=== PATIENT | female | born 1945 ===

== ENCOUNTER 2021-05-23 13:44 | Emergency (ER) | payer MEDICARE, SELFPAY ==
--- NOTE | ~2021-05-23 | CT_ITS ---
EXAMINATION: CT ABDOMEN AND PELVIS WITHOUT CONTRAST CLINICAL INFORMATION: Left groin pain. Rule out hernia/compression fracture. COMPARISON: No priors. TECHNIQUE: Multidetector volumetric imaging was performed from the superior aspect of the liver through the pubic symphysis. Sagittal and coronal reformatted images were obtained on the technologist's workstation. This CT examination was performed using dose optimization techniques as appropriate, variously including the following: *Automated exposure control *Adjustment of mA and/or kV according to patient size (this includes techniques or standardized protocols for targeted exams where dose is matched to indication/reason for exam; i.e. extremities or head) *Use of iterative reconstruction technique DLP: 517 mGy-cm FINDINGS: LINES AND TUBES: None. LOWER THORAX: Lung bases are clear. Heart is normal in size. No pericardial effusion or thickening. HEPATOBILIARY: The liver is normal in size, contour, and attenuation. No focal hepatic lesions. Gallbladder is surgically absent. No intrahepatic or extra hepatic biliary ductal dilation. SPLEEN: Normal. PANCREAS: Normal. Main pancreatic duct is normal in caliber. No solid or cystic pancreatic lesion. ADRENALS: Normal. KIDNEYS/URETERS: Normal. No renal calculi. No hydronephrosis. Ureters are normal throughout their course. BLADDER: Normal. PELVIC ORGANS: Anteverted uterus. No adnexal mass. GI TRACT: Stomach is normal in caliber. No dilated or thick walled loops of bowel. The appendix is normal (6:43). PERITONEUM/RETROPERITONEUM AND MESENTERY: No free air or fluid. LYMPH NODES: No pathologically enlarged lymph nodes. VESSELS: There is moderate aortoiliac atherosclerotic calcification. No aortic aneurysm by size criteria. BONES AND SOFT TISSUES: No aggressive osseous lesions. There is subtle compression of the T11 superior endplate of indeterminate age. No unstable fracture. Mild osteopenia. CT/CT abdomen pelvis wo con IMPRESSION: --No acute process in the abdomen/pelvis. --Subtle compression of the T11 superior endplate. --Mild osteopenia. --No evidence of hernia. --Normal appendix.
[2021-05-23 13:58] VITALS: BP 171/111; PULSE 82; RESP 20; TEMP 35.6; O2SAT 95; BMI 26.2
--- NOTE | 2021-05-23 14:47 | ED.BACK ---
HPI - Back Pain/Injury General Chief Complaint: Back Pain/Injury Stated Complaint: INJ BACK LIFTING Time Seen by Provider: 05/23/21 14:47 History of Present Illness HPI Narrative: Patient complains of left-sided back pain as well as left groin pain after lifting a heavy air conditioner 3 days ago, there is no numbness weakness or tingling no radiation of pain no nausea vomiting no abdominal pain no changes to bowel or bladder, eating normally Related Data Previous Rx's Medication Instructions Recorded acetaminophen 500 mg tablet 1,000 mg PO QID PRN #30 tab 05/23/21 cyclobenzaprine 5 mg tablet 5 mg PO TID PRN #14 tab 05/23/21 lidocaine 5 % topical patch 1 patch TOPICAL DAILY PRN #15 ea 05/23/21 naproxen 500 mg tablet (Naprosyn) 500 mg PO BID PRN #10 tab 05/23/21 Allergies Allergy/AdvReac Type Severity Reaction Status Date / Time No Known Allergies Allergy Mild NONE Unverified 07/17/20 15:25 Review of Systems Review of Systems: Positive for left-sided back pain and left groin pain Negatives are no fever no chills no dizziness no weakness no headache no neck pain no chest pain no abdominal pain no nausea vomiting or diarrhea no dysuria no frequency no changes to bowel or bladder, appetite is normal, no rashes no numbness weakness or tingling PMFSH Past Medical History Source: nursing notes reviewed Medical History (Updated 05/24/21 @ 00:01 by Background Daemon) Asthma Hypertension Osteoporosis Social History Social History Advance Directives: Yes Advance Directives Information Provided: Yes Advance Directives on File: No Physical Exam Vital Signs: Vital Signs: Last Vital Signs Temp 96.1 F L 05/23/21 13:58 Pulse 82 05/23/21 13:58 Resp 20 05/23/21 13:58 BP 171/111 H 05/23/21 13:58 Pulse Ox 95 05/23/21 13:58 Body Mass Index 26.2 General appearance no acute distress Head is normocephalic atraumatic Neck is suppl Chest is clear to auscultation bilateral Heart no murmur The abdomen soft nontender The left groin area there seemed to be a small bulge that was easily reduced possibly a hernia, there was no tenderness no rebound no guarding The back had left lower lumbar tenderness there was no focal spinal tenderness there was no CVA tenderness the skin was normal, pain was reproduced with movement Skin no rashes Extremities full range of motion x4 Neuro no focal motor sensory deficit Course Course Course Narrative: CT scan was done and showed a possible small compression fracture but not clear if was new or old Physical exam showed a possible small reducible inguinal hernia, patient ambulates easily and is well-appearing and is discharged to follow with primary care doctor and advised to follow with surgeon for evaluation of the left inguinal area Discharge Plan Discharge Clinical Impression: Back pain Patient Disposition: Home, Self-Care Additional Instructions: When I examined the painful area in the left groin I thought I felt a small hernia that was easy to reduce, if this pain continues you should follow with a surgeon for further evaluation Our CT scan showed a possible small compression fracture of 1 of the vertebrae which may be old or possibly new from the lifting injury This should be followed with primary care doctor and probable referral for physical therapy Return any time for any worse condition or any concerns, especially vomiting, worsening abdominal pain, fever, trouble with urinating, weakness, any worse condition or any concerns Prescriptions: New lidocaine 5 % adhesive patch,medicated 1 patch topical DAILY PRN (Reason: Back pain) Qty: 15 RF: 0 naproxen [Naprosyn] 500 mg tablet 500 mg PO BID PRN (Reason: pain) Qty: 10 RF: 0 acetaminophen 500 mg tablet 1,000 mg PO QID PRN (Reason: pain) Qty: 30 RF: 0 cyclobenzaprine 5 mg tablet 5 mg PO TID PRN (Reason: muscle spasm) Qty: 14 RF: 0 Referrals: Zhang Guzman MD [Physician] - 5 days (Possible reducible left inguinal hernia) Interventions: ED Discharge Assessment Last Done: 05/23/21 16:12 Discharge Date/Time: 05/23/21 16:13
[2021-05-23] MEDS: Lidocaine 4 % Patch ADH..PATCH 1 PATCH TRANSDERMA (16:05)
[2021-05-23] MEDS: Acetaminophen 325 MG TABLET 975 MG PO (16:06)
[2021-05-23] MEDS: NaPROXEN 500 MG TABLET PO (16:07)
[2021-05-23] MEDS: Cyclobenzaprine HCl 5 MG TABLET PO (16:11)
== END 2021-05-23 16:13 | disposition home or self-care (01) ==
PROVIDERS: Emergency Provider Emergency Medicine; PCP Internal Medicine
DX: M54.5 Low back pain (principal); I10 Essential (primary) hypertension
CPT/HCPCS: 74176; 99283; 99284

== ENCOUNTER 2022-02-03 08:27 | Outpatient (REF) | payer OTHER, SELFPAY ==
--- NOTE | ~2022-02-03 | MM_ITS ---
EXAMINATION: MM SCREENING DIGITAL BREAST TOMOSYNTHESIS, BILATERAL CLINICAL INFORMATION: Screening. Asymptomatic. The lifetime risk of breast cancer based on the Tyrer-Cuzick Model is 2%. COMPARISON: Mammography: 06/13/2019, 05/29/2018, 11/25/2016 TECHNIQUE: Digital breast tomosynthesis is performed in both the craniocaudal and mediolateral oblique views along with computer-aided detection (CAD). Synthesized 2D images are generated from the tomosynthesis. FINDINGS: There are scattered areas of fibroglandular density (ACR BI-RADS breast composition Category b). There are no significant masses, abnormal calcifications, or other abnormalities. Breast tissue composition borders on predominantly fatty. There is a small stable macrolobulated nodule central 9:00 right breast. The axilla are unremarkable. No significant changes. MM/MM tomosynthesis screening BI IMPRESSION: No mammographic evidence of malignancy. ASSESSMENT: BI-RADS 2: Benign RECOMMENDATION: Routine annual mammography screening. This patient's information was entered into a reminder system with a target due date for their next mammogram.
== END 2022-02-03 08:28 | disposition home or self-care (01) ==
LOC: HO.MAMMO 08:27
PROVIDERS: PCP Internal Medicine; Visit Provider Internal Medicine
DX: Z12.31 Encounter for screening mammogram for malignant neoplasm of breast (principal)
CPT/HCPCS: 77063; 77067

== ENCOUNTER → 2022-04-12 10:20 | Outpatient (BNVA) | payer OTHER, SELFPAY | PROVIDERS: PCP Internal Medicine; Visit Provider Nurse Practitioner Family | DX: Z12.11 Encounter for screening for malignant neoplasm of colon (principal); K59.04 Chronic idiopathic constipation; K22.70 Barrett's esophagus without dysplasia | CPT/HCPCS: 99202 ==

== ENCOUNTER 2022-05-05 09:41 | Emergency (ER) | payer OTHER, SELFPAY ==
--- NOTE | ~2022-05-05 | CT_ITS ---
EXAMINATION: CT ABDOMEN AND PELVIS WITHOUT CONTRAST CLINICAL INFORMATION: Left upper quadrant pain. Left flank pain. COMPARISON: 05/23/2021 TECHNIQUE: Multidetector volumetric imaging was performed from the superior aspect of the liver through the pubic symphysis. Sagittal and coronal reformatted images were obtained on the technologist's workstation. This CT examination was performed using dose optimization techniques as appropriate, variously including the following: *Automated exposure control *Adjustment of mA and/or kV according to patient size (this includes techniques or standardized protocols for targeted exams where dose is matched to indication/reason for exam; i.e. extremities or head) *Use of iterative reconstruction technique DLP: 432 mGy-cm FINDINGS: LUNG BASES: The visualized lung bases are unremarkable. LIVER, GALLBLADDER, AND BILIARY TREE: The liver is normal in size, shape, and attenuation. No focal hepatic lesion or biliary ductal dilatation is present. The gallbladder is unremarkable with no evidence of radiopaque gallstones, gallbladder wall thickening, or obvious pericholecystic inflammatory changes. PANCREAS: Unremarkable. SPLEEN: Unremarkable. ADRENAL GLANDS: Unremarkable. KIDNEYS AND URETERS: Since the prior exam, the right and left renal pelves do appear slightly more prominent. No evidence for right or left nephrolithiasis or perinephric collection. No evidence for discrete calcifications along the course of the ureters although there are multiple pelvic phleboliths and vascular calcifications along the course of the ureters. If there is continued concern for passage of the left renal stone and I would recommend repeating the study with IV contrast with delayed imaging through the left renal pelvis. Incidental note is made of a retroaortic left renal vein. BLADDER: Unremarkable. GASTROINTESTINAL TRACT: There is a large volume of stool distending the rectum. There is a large volume of stool throughout the colon but no bowel obstruction or right or left lower quadrant inflammatory change. The appendix is normal. ABDOMINAL WALL: No significant hernia is appreciated. LYMPH NODES: Normal. VASCULAR: There is atherosclerotic change in the aorta. 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 The AP diameter of the mid abdominal aorta measures up to 27 mm. There are no periaortic collections. Please note that the study however was done without IV contrast. PELVIC VISCERA: Unremarkable. OSSEOUS STRUCTURES: There is degenerative change noted. There is a mild compression deformity in the lower thoracic spine unchanged. CT/CT abdomen pelvis wo con IMPRESSION: Slight prominence or distention of the right and left collecting system. If symptoms continue I would recommend follow-up examination with IV contrast. Fleischner guidelines were followed.
--- NOTE | ~2022-05-05 | XR_ITS ---
EXAMINATION: XR CHEST CLINICAL INFORMATION: Left upper quadrant pain. COMPARISON: 06/03/2013 chest radiograph. TECHNIQUE: 2 views of the chest were obtained. FINDINGS: No significant abnormality is noted involving the heart, lungs, mediastinum, bony thorax or soft tissues. XR/XR chest 2V IMPRESSION: No acute cardiopulmonary process.
[2022-05-05 09:53] VITALS: BP 182/91; PULSE 74; O2SAT 99
[2022-05-05 09:54] VITALS: BP 125/65; PULSE 64; RESP 12; TEMP 36.4; O2SAT 97
[2022-05-05 09:57] VITALS: BP 125/65; PULSE 64; RESP 18; TEMP 36.4; O2SAT 98; BMI 24.4
--- NOTE | 2022-05-05 10:09 | ECG_ITS ---
Test Reason : chest wall pain Blood Pressure : / mmHG Vent. Rate : 062 BPM Atrial Rate : 062 BPM P-R Int : 144 ms QRS Dur : 072 ms QT Int : 394 ms P-R-T Axes : 070 040 031 degrees QTc Int : 399 ms Normal sinus rhythm Normal ECG When compared with ECG of 03-JUN-2013 14:56, No significant change was found Referred By: Chelsie Amador Electronically Signed By:Gianluca Muaro
[2022-05-05] MEDS: ondansetron HCL 4 MG/2 ML VIAL IVPUSH (10:43)
[2022-05-05] MEDS: 0.9 % Sodium Chloride 1,000 ML 999 ML IVCONT (10:43)
[2022-05-05] MEDS: Ketorolac Tromethamine 30 MG/ML VIAL IVPUSH (10:43)
[2022-05-05 10:55] LABS: MANUAL DIFF FLAG NO
--- NOTE | 2022-05-05 10:59 | PC.NURSE ---
Patient arrives via EMS from [facility] walk-in clinic. Reports left flank pain x 1 week. Patient is alert and oriented. Respirations regular and even. Skin PWD. Placed IV and roberto labs. Hung NS 1L and medicated with zofran and ptoradol. Awaiting lab results at this time. Will continue to monitor.
[2022-05-05 11:04] LABS: Basophils Percent Auto 0.4 % (0-2); Eosinophils Absolute Auto 0.1 X10*3/uL (0.0-0.4); Eosinophils Percent Auto 0.8 % (0-4); Hematocrit 45.6 % (37.0-47.0); Hemoglobin 14.7 g/dl (12.0-16.0); Imm Gran Abs Auto 0.01 X10*3/uL (0.00-0.03); Imm Gran Pct Auto 0.1 % (0.0-0.4); Lymphocytes Absolute Auto 3.2 X10*3/uL (1.2-4.9); Lymphocytes Percent Auto 41.3 % (20-40); Mean Corpuscular HGB Conc 32.2 g/dl (31.0-35.0); Mean Corpuscular Hemoglobin 27.5 pg (27.0-33.0); Mean Corpuscular Volume 85.4 fL (80.0-98.0); Mean Platelet Volume 9.8 fL (9.4-12.3); Monocytes Absolute Auto 0.6 X10*3/uL (0.1-1.2); Monocytes Percent Auto 7.8 % (2-11); Neutrophils Absolute Auto 3.8 x10*3/uL (2.0-8.3); Neutrophils Percent Auto 49.6 % (45-73); Platelet Count 222 X10*3/uL (160-400); Red Blood Count 5.34 X10*6/uL (4.20-5.50); Red Cell Distribution Width 13.5 % (11.0-16.0); White Blood Count 7.7 X10*3/uL (4.8-10.8)
[2022-05-05 11:19] LABS: Ethanol < 10 mg/dL
[2022-05-05 11:21] LABS: Alanine Aminotransferase 14 U/L (0-31); Albumin Level 4.2 g/dL (3.5-5.0); Alkaline Phosphatase 64 U/L (39-117); Anion Gap 11 (12-20); Aspartate Amino Transferase 19 U/L (5-31); Bilirubin Total 0.7 mg/dL (0.0-1.0); Blood Urea Nitrogen 12 mg/dL (9-16); Calcium 9.4 mg/dL (8.4-10.2); Carbon Dioxide 28 mmol/L (22-29); Chloride 104 mmol/L (96-108); Creatinine Clr Calc Pharmacy 39.7; Estimated Glomerular Filt Rate 55; Glucose Random 97 mg/dL (60-115); Lactate Dehydrogenase 161 U/L (122-220); Lipase 32 U/L (8-78); Magnesium 2.1 mg/dL (1.6-2.6); Potassium 4.3 mmol/L (3.3-5.1); Sodium 139 mmol/L (135-145)
[2022-05-05 11:22] LABS: Troponin-I High Sensitivity < 3.5 ng/L (<3.5-17.0)
--- NOTE | 2022-05-05 11:38 | ED_ITS ---
HPI - Abdominal Pain General Chief Complaint: Abdominal Pain Stated Complaint: LEFT FLANK PAIN Time Seen by Provider: 05/05/22 09:53 Source: patient Mode of arrival: ambulatory Limitations: language barrier (Romanian-speaking) History of Present Illness HPI narrative: 76-year-old female with a past medical history of Panda's esophagus recently had a colonoscopy which showed tubular adenoma without high-grade dysplasia or carcinoma being followed by Gastroenterology last seen on 04/12/2022, asthma, hypertension and osteoporosis presenting to the ED with complaints of left upper quadrant/left flank/left lower rib cage/chest wall pain that radiates to her left back for approximately 1 week. She reports that today it is worse. She reports that she has been taking Motrin/Tylenol/Advil/Aleve and no symptomatic relief. She has also been trying hot and cold packs which provide no symptomatic relief. She denies any dizziness, headaches, neck pain/stiffness, trouble swallowing or breathing, chest pain or shortness of breath, dyspnea on exertion, orthopnea, palpitations, paresthesias, dysuria, hematuria, abnormal vaginal discharge, black or bloody stools, vomiting, recent travel or sick contacts, recent antibiotic usage, bad food exposure, others with similar symptoms or any other symptoms complaints or concerns at this time. MD elicited complaint: abdominal pain Pertinent past history: other (Barrettes esophagus with tubular adenoma) Onset (ago): week(s) (1) Pain Consistency: constant Location: epigastric, LUQ and L flank Severity: moderate Quality: aching and sharp Radiation: L flank and back Exacerbating factors: nothing Relieving factors: nothing Associated symptoms: nausea Related Data Previous Rx's Medication Instructions Recorded acetaminophen 500 mg tablet 1,000 mg PO QID PRN pain #30 tabs 05/23/21 cyclobenzaprine 5 mg tablet 5 mg PO TID PRN muscle spasm #14 05/23/21 tabs lidocaine 5 % topical patch 1 patch topical DAILY PRN Back 05/23/21 pain #15 ea naproxen 500 mg tablet (Naprosyn) 500 mg PO BID PRN pain #10 tabs 05/23/21 bisacodyl 5 mg tablet,delayed 10 mg PO ONCE 1 day #2 tabs 04/12/22 release (Dulcolax (bisacodyl)) polyethylene glycol 3350 17 238 g PO ONCE #238 grams 04/12/22 gram/dose oral powder (Miralax) sennosides 8.6 mg tablet (Natural 8.6 mg PO BEDTIME constipation #90 04/12/22 Senna Laxative) tabs docusate sodium 100 mg capsule 100 mg PO BID PRN Constipation #14 05/05/22 (Colace) caps ketorolac 10 mg tablet 10 mg PO Q8H PRN pain #14 tabs 05/05/22 peg 3350-electrolytes 236 240 ml PO Q10M Constipation #4,000 05/05/22 gram-22.74 gram-6.74 gram-5.86 mL gram solution (Golytely) polyethylene glycol 3350 17 17 g PO BID Constipation #238 grams 05/05/22 gram/dose oral powder (Miralax) Allergies Allergy/AdvReac Type Severity Reaction Status Date / Time No Known Allergies Allergy Mild NONE Verified 04/12/22 10:24 Review of Systems Review of Systems Constitutional : No Fever, No Chills, No Night Sweats, No Fatigue, No Malaise Cardiovascular : No Chest Pain, No SOB Respiratory : No Cough, No Sputum, No Wheezing, No Dyspnea Gastrointestinal : + Nausea, No Vomiting, No Diarrhea, + abdominal Pain, No Hematochezia, No Melena Genitourinary : No irregular bleeding, No Dysuria, No Urinary Frequency, No Hematuria,No Urinary Incontinence, No Urgency, No Flank Pain Musculoskeletal : No joint pain, No Myalgias, No Joint Swelling Skin : No Skin Lesions, No rash Neuro : No Weakness, No Numbness, No Paresthesias, No Loss of Consciousness, No Dizziness, No Headache Heme/Lymph: No Lymphadenopathy Endocrine : No Temperature Intolerance Yes all other systems are reviewed and are negative [facility] Past Medical History Attestation statement: The following information was validated with the patient. Source: old records reviewed and nursing notes reviewed Medical History Asthma Panda esophagus Hypertension Osteoporosis Family History Family History Mother Diabetes Father No problems noted. Social History Social History Alcohol intake: never Patient Tobacco Use Status: Current everyday Tobacco user Tobacco use type: Cigarette Cigarettes Per Day: 3 Use of substances other than those prescribed or required for medical reasons: No Advance Directives: No Advance Directives Information Provided: Yes Physical Exam ED Vital Signs: Vital Signs - 24 hr 05/05/22 09:54 05/05/22 09:57 Temperature 97.6 F 97.6 F Pulse Rate 64 64 Respiratory Rate 12 18 Blood Pressure 125/65 125/65 Pulse Oximetry 97 98 Oxygen Delivery Method Room Air Room Air BMI result Body Mass Index 24.4 Vital signs have been reviewed and all within normal limits Appearance: Alert. Oriented X3. No acute distress. Head: Normal external exam. Normocephalic. Eyes: PERRLA. EOMI. Conjunctiva and sclera normal. Eyelids normal. ENT: Pharynx normal. Uvula midline. Moist mucous membranes. No trismus noted. No drooling noted. No muffled voice noted. Neck: Normal inspection. Neck supple. FROM. No adenopathy. No meningeal signs. CVS: Normal heart rate and rhythm. Heart sound normal. No murmurs noted. Pulses normal throughout. Respiratory: No respiratory distress. Painless inspiration. Breath sounds normal. No wheezes/rales/rhonchi noted. Chest nontender. No accessory muscle usage noted or decreased air movement noted. Abdomen: Soft and moderate tenderness palpation to the left upper quadrant/epigastric area with guarding patient is holding her hand right over her left lower ribcage/left upper quadrant/left flank/epigastric area. Negative Valentin sign. Nondistended. No rigidity. Bowel sounds normal in all 4 quadrants. No distention noted. No organomegaly noted. No visible injury noted. No rebound tenderness. Negative Rovsing sign. Negative obturator's sign. Negative psoas sign. Negative Valentin sign. Back: No CVA tenderness. Full range of motion noted. Skin: Skin warm and dry. Normal skin color. Normal skin turgor. No rashes/lesions/lacerations noted. Extremities: Extremities exhibit normal range of motion. Extremities nontender. Neuro: Oriented X 3. No motor deficit. No sensory deficit. Reflexes normal. Normal steady gait. CN's II-XII intact bilaterally? Course Course Course Narrative: 10:10am - 76-year-old female with a past medical history of Panda's esophagus recently had a colonoscopy which showed tubular adenoma without high-grade dysplasia or carcinoma being followed by Gastroenterology last seen on 04/12/2022, asthma, h ypertension and osteoporosis presenting to the ED with complaints of left upper quadrant/left flank/left lower rib cage/chest wall pain that radiates to her left back for approximately 1 week. She reports that today it is worse. She reports that she has been taking Motrin/Tylenol/Advil/Aleve and no symptomatic relief. She has also been trying hot and cold packs which provide no symptomatic relief. . Plan: Labs, UA, COVID swab, chest x-ray, EKG, CT scan abdomen pelvis I did want IV contrast although due to the IV national shortage of contrast the radiologist recommended performing the CT scan of abdomen pelvis without IV contrast and if there are abnormalities then he would recommend IV contrast although not at this time. Patient declined morphine or Dilaudid therefore I offered Toradol patient accepted will also give Zofran and re-evaluate. Reevaluation(s) Reevaluation #1: - labs reviewed and all labs within normal limits. - chest x-ray within normal limits no acute processes noted. - UA pending and CT scan abdomen pelvis with out IV contrast will re-evaluate Time: 12:02 Reevaluation #2: - CT scan abdomen pelvis with IV contrast revealed some prominence/distension of the right and left collecting system otherwise they did not see any stones and patient reports she feels much comfortable after the Toradol and she is able to eat and drink. We did notice that she did have large amount of stool therefore most likely consistent with constipation. Not consistent with bowel obstruction at this time. I did offer the patient to do a rectal exam to remove some of the stool that she has although she adamantly refused reported that she is currently on medication she just needs to take them as prescribed I also explained to her that I can give her more medications Colace/MiraLax and GoLYTELY with instructions follow-up with her GI Dr. And to return if any new or worsening symptoms. Patient understands agrees with this plan. Time: 13:07 [facility] - Abdominal Pain Medical Records Attestation: I reviewed the patient's medical records. Lab Data Attestation: I reviewed the patient's lab results. Result diagrams: 05/05/22 10:41 05/05/22 10:41 Labs: Lab Results 05/05/22 05/05/22 05/05/22 Range/Units 10:41 10:41 10:41 WBC 7.7 (4.8-10.8) X10*3/uL RBC 5.34 (4.20-5.50) X10*6/uL Hgb 14.7 (12.0-16.0) g/dl Hct 45.6 (37.0-47.0) % MCV 85.4 (80.0-98.0) fL MCH 27.5 (27.0-33.0) pg MCHC 32.2 (31.0-35.0) g/dl RDW 13.5 (11.0-16.0) % Plt Count 222 (160-400) X10*3/uL MPV 9.8 (9.4-12.3) fL Immature Gran % (Auto) 0.1 (0.0-0.4) % Neut % (Auto) 49.6 (45-73) % Lymph % (Auto) 41.3 H (20-40) % [place] % (Auto) 7.8 (2-11) % Eos % (Auto) 0.8 (0-4) % Baso % (Auto) 0.4 (0-2) % Lymph # (Auto) 3.2 (1.2-4.9) X10*3/uL [place] # (Auto) 0.6 (0.1-1.2) X10*3/uL Eos # (Auto) 0.1 (0.0-0.4) X10*3/uL Baso # (Auto) 0.0 (0.0-0.2) X10*3/uL Abs Immat Gran (auto) 0.01 (0.00-0.03) X10*3/uL Absolute Neuts (auto) 3.8 (2.0-8.3) x10*3/uL Absolute Nucleated RBC 0.000 (0.0-0.012) X10*3/uL Nucleated RBC % (auto) 0.0 (0.0-0.2) /100WBC PT (10.0-13.1) SEC INR (0.9-1.1) Sodium 139 (135-145) mmol/L Potassium 4.3 (3.3-5.1) mmol/L Chloride 104 (96-108) mmol/L Carbon Dioxide 28 (22-29) mmol/L Anion Gap 11 L (12-20) BUN 12 (9-16) mg/dL Creatinine 0.98 (0.5-1.4) mg/dL Estim Creat Clear Calc 39.7 Estimated GFR 55 Random Glucose 97 (60-115) mg/dL Calcium 9.4 (8.4-10.2) mg/dL Magnesium 2.1 (1.6-2.6) mg/dL Total Bilirubin 0.7 (0.0-1.0) mg/dL AST 19 (5-31) U/L ALT 14 (0-31) U/L Alkaline Phosphatase 64 (39-117) U/L Lactate Dehydrogenase 161 (122-220) U/L Troponin I High Sens < 3.5 (<3.5-17.0) ng/L Total Protein 7.0 (6.5-8.0) g/dL Albumin 4.2 (3.5-5.0) g/dL Lipase 32 (8-78) U/L Ethyl Alcohol mg/dL COVID-19 (ERIC) (Negative) COVID-19 Clin Com 05/05/22 05/05/22 05/05/22 Range/Units 10:41 11:34 12:36 WBC (4.8-10.8) X10*3/uL RBC (4.20-5.50) X10*6/uL Hgb (12.0-16.0) g/dl Hct (37.0-47.0) % MCV (80.0-98.0) fL MCH (27.0-33.0) pg MCHC (31.0-35.0) g/dl RDW (11.0-16.0) % Plt Count (160-400) X10*3/uL MPV (9.4-12.3) fL Immature Gran % (Auto) (0.0-0.4) % Neut % (Auto) (45-73) % Lymph % (Auto) (20-40) % [place] % (Auto) (2-11) % Eos % (Auto) (0-4) % Baso % (Auto) (0-2) % Lymph # (Auto) (1.2-4.9) X10*3/uL [place] # (Auto) (0.1-1.2) X10*3/uL Eos # (Auto) (0.0-0.4) X10*3/uL Baso # (Auto) (0.0-0.2) X10*3/uL Abs Immat Gran (auto) (0.00-0.03) X10*3/uL Absolute Neuts (auto) (2.0-8.3) x10*3/uL Absolute Nucleated RBC (0.0-0.012) X10*3/uL Nucleated RBC % (auto) (0.0-0.2) /100WBC PT 11.9 (10.0-13.1) SEC INR 1.0 (0.9-1.1) Sodium (135-145) mmol/L Potassium (3.3-5.1) mmol/L Chloride (96-108) mmol/L Carbon Dioxide (22-29) mmol/L Anion Gap (12-20) BUN (9-16) mg/dL Creatinine (0.5-1.4) mg/dL Estim Creat Clear Calc Estimated GFR Random Glucose (60-115) mg/dL Calcium (8.4-10.2) mg/dL Magnesium (1.6-2.6) mg/dL Total Bilirubin (0.0-1.0) mg/dL AST (5-31) U/L ALT (0-31) U/L Alkaline Phosphatase (39-117) U/L Lactate Dehydrogenase (122-220) U/L Troponin I High Sens (<3.5-17.0) ng/L Total Protein (6.5-8.0) g/dL Albumin (3.5-5.0) g/dL Lipase (8-78) U/L Ethyl Alcohol < 10 mg/dL COVID-19 (ERIC) Negative (Negative) COVID-19 Clin Com See Note Imaging Data Chest x-ray: Attestation: I personally reviewed and interpreted this imaging study as follows: Radiologist's impression: FINDINGS: No significant abnormality is noted involving the heart, lungs, mediastinum, bony thorax or soft tissues. XR/XR chest 2V IMPRESSION: No acute cardiopulmonary process. CT scan abdomen pelvis without IV contrast: Attestation: I personally reviewed and interpreted this imaging study as follows: Radiologist's impression: FINDINGS: LUNG BASES: The visualized lung bases are unremarkable.? LIVER, GALLBLADDER, AND BILIARY TREE: The liver is normal in size, shape, and attenuation. No focal hepatic lesion or biliary ductal dilatation is present. The gallbladder is unremarkable with no evidence of radiopaque gallstones, gallbladder wall thickening, or obvious pericholecystic inflammatory changes.? PANCREAS: Unremarkable.? SPLEEN: Unremarkable.? ADRENAL GLANDS: Unremarkable.? KIDNEYS AND URETERS: Since the prior exam, the right and left renal pelves do appear slightly more prominent. No evidence for right or left nephrolithiasis or perinephric collection. No evidence for discrete calcifications along the course of the ureters although there are multiple pelvic phleboliths and vascular calcifications along the course of the ureters. If there is continued concern for passage of the left renal stone and I would recommend repeating the study with IV contrast with delayed imaging through the left renal pelvis. Incidental note is made of a retroaortic left renal vein. BLADDER: Unremarkable.? GASTROINTESTINAL TRACT: There is a large volume of stool distending the rectum. There is a large volume of stool throughout the colon but no bowel obstruction or right or left lower quadrant inflammatory change. The appendix is normal.? ABDOMINAL WALL: No significant hernia is appreciated.? LYMPH NODES: Normal. VASCULAR: There is atherosclerotic change in the aorta. 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 The AP diameter of the mid abdominal aorta measures up to 27 mm. There are no periaortic collections. Please note that the study however was done without IV contrast. PELVIC VISCERA: Unremarkable.? OSSEOUS STRUCTURES: There is degenerative change noted. There is a mild compression deformity in the lower thoracic spine unchanged.? CT/CT abdomen pelvis wo con IMPRESSION: Slight prominence or distention of the right and left collecting system. If symptoms continue I would recommend follow-up examination with IV contrast. Fleischner guidelines were followed. ECG Data Attestation: I personally reviewed and interpreted this ECG as follows: ECG interpretation date: 05/05/22 ECG interpretation time: 10:39 Interpretation: EKG normal sinus rhythm with ventricular rate of 62 with a normal AR interval normal QRS duration normal QTC interval. No acute ischemic change are noted. Similar compared to prior EKG May 2013 Critical Care Time Critical Care Time Critical Care Time: Yes Total Critical Care Time: 60 Attestation: I personally attest to this time spent taking care of the patient Discharge Plan Discharge Clinical Impression: Constipation Patient Disposition: Home, Self-Care Instructions: Constipation (ED) Prescriptions: New peg 3350-electrolytes [Golytely] 236-22.74-6.74 -5.86 gram recon soln 240 ml PO Q10M Qty: 4000 0RF Rx Instructions: until fecal effluent is clear docusate sodium [Colace] 100 mg capsule 100 mg PO BID PRN (Reason: Constipation) Qty: 14 0RF polyethylene glycol 3350 [Miralax] 17 gram/dose powder 17 g PO BID Qty: 238 0RF ketorolac 10 mg tablet 10 mg PO Q8H PRN (Reason: pain) Qty: 14 0RF No Action lidocaine 5 % adhesive patch,medicated 1 patch topical DAILY PRN (Reason: Back pain) Qty: 15 0RF Rx Instructions: leave on most painful area for up to 12 hrs naproxen [Naprosyn] 500 mg tablet 500 mg PO BID PRN (Reason: pain) Qty: 10 0RF acetaminophen 500 mg tablet 1,000 mg PO QID PRN (Reason: pain) Qty: 30 0RF cyclobenzaprine 5 mg tablet 5 mg PO TID PRN (Reason: muscle spasm) Qty: 14 0RF Rx Instructions: This medication may cause drowsiness, use with caution bisacodyl [Dulcolax (bisacodyl)] 5 mg tablet,delayed release (DR/EC) 10 mg PO ONCE 1 Days Qty: 2 0RF Rx Instructions: take 2 tabs at noon the day before your colonoscopy polyethylene glycol 3350 [Miralax] 17 gram/dose powder 238 g PO ONCE Qty: 238 0RF Rx Instructions: As directed by gastroenterology department at [facility] sennosides [Natural Senna Laxative] 8.6 mg tablet 8.6 mg PO BEDTIME Qty: 90 3RF Referrals: Bre Ortega MD [Primary Care Provider] - Carlie Brito, LEARNING DEVELOPMENT SPECIALIST-BC [Nurse Practitioner] - 1 week Print Language: Romanian
[2022-05-05 11:44] LABS: Prothrombin Time 11.9 SEC (10.0-13.1)
[2022-05-05 12:00] VITALS: BP 138/80; PULSE 68; RESP 18; O2SAT 96
[2022-05-05 13:01] LABS: COVID-19 Test Negative (Negative); IDNOW Serial# 16C4AD1C
== END 2022-05-05 13:41 | disposition home or self-care (01) ==
PROVIDERS: Physician Assistant Medical; Emergency Provider Internal Medicine; PCP Internal Medicine
DX: K59.00 Constipation, unspecified (principal); Z20.822 Contact with and (suspected) exposure to COVID-19; R10.12 Left upper quadrant pain; I10 Essential (primary) hypertension; K22.70 Barrett's esophagus without dysplasia; F17.200 Nicotine dependence, unspecified, uncomplicated
CPT/HCPCS: 36415; 71046; 74176; 80053; 82077; 83615; 83690; 83735; 84484; 85025; 85610; 87635; 93005; 96361; 96374; 96375; 99284; J1885; J2405

== ENCOUNTER 2022-08-12 09:30 | Day surgery (SDC) | payer OTHER, SELFPAY ==
--- NOTE | 2022-08-11 10:26 | HO.ANESPROP2 ---
Documented by User: Tiffanie Sarmiento NP 08/11/22 10:28 HPI - Anesthesia Eval Consult details Narrative: 76yo F for Upper Endoscopy and Colonoscopy PMFSH Active Problems Active Problems: All Active Problems (Updated 05/06/22 @ 00:05 by Uvaldo Benites) Panda esophagus (Acute) Past Medical History Medical History Asthma Panda esophagus Hypertension Osteoporosis Family History Family History Mother Diabetes Father No problems noted. Social History Social History Alcohol intake: never Patient Tobacco Use Status: Current everyday Tobacco user Tobacco use type: Cigarette Cigarettes Per Day: 3 Are you DNR?: No Advance Directives: No Advance Directives Information Provided: Yes Recently lost weight without trying: No Nutrition Risks: No Nutritional Risk Meds Allergies Allergy/AdvReac Type Severity Reaction Status Date / Time No Known Allergies Allergy Mild NONE Verified 04/12/22 10:24 Exam Exam Date and Time: August 11, 2022 1026 Pertinent Lab Results Pertinent Lab Results: Laboratory Tests 05/05/22 05/05/22 10:41 10:41 WBC 7.7 Hgb 14.7 Hct 45.6 Plt Count 222 Sodium 139 Potassium 4.3 Chloride 104 Carbon Dioxide 28 BUN 12 Creatinine 0.98 Assessment and Plan Assessment Anesthesia Assessment: Chart Reviewed Documented by User: Sugar Luis MD 08/12/22 10:49 PMFSH Past Medical History Medical History Asthma Panda esophagus Hypertension Osteoporosis Functional capacity: independent ambulation Patient : No Family History Family History Mother Diabetes Father No problems noted. Surgical History History of Problems with Anesthesia: No Social History Social History Alcohol intake: never Patient Tobacco Use Status: Current everyday Tobacco user Tobacco use type: Cigarette Cigarettes Per Day: 3 Are you DNR?: No Advance Directives: No Advance Directives Information Provided: Yes Recently lost weight without trying: No Nutrition Risks: No Nutritional Risk Meds Allergies Allergy/AdvReac Type Severity Reaction Status Date / Time No Known Allergies Allergy Mild NONE Verified 04/12/22 10:24 Exam Airway Mallampati Class: II TM Dist: >3cm Neck ROM: Full Heart: RRR Assessment and Plan Final Anesthetic Review History of Problems with Anesthesia: No ASA Class: II Final Preanesthetic Review: No Changes in Pt Med Stat, Meds/Allgs Chart Reviewed, Consent Obtained/Reviewed and Anes Risks/Benef Reviewed Patient Risk: Low Procedure Risk: Low Anesthetic Plan Anesthetic Plan: MAC: Disposition: Standard PACU
[2022-08-12 07:24] VITALS: BMI 26.2
[2022-08-12 09:38] VITALS: BP 145/87; PULSE 70; RESP 17; TEMP 36.6; O2SAT 98
[2022-08-12] MEDS: Lactated Ringers 1,000 ML 100 ML IVCONT (09:59)
--- NOTE | 2022-08-12 10:16 | P.HPSUR_ITS ---
Pre-Procedural Eval Section A Date of Service: 08/12/22 Section B Chief Complaint: Panda's esophagus w/o dysplasia,screening,consti Relevant Family History (Specify if Yes): No Relevant Social History: Tobacco Use Present Medications: see Short Stay Collaborative assessment Medical History: Significant History (Asthma Panda esophagus Hypertension Osteoporosis) History of Previous Operations: No relevant previous surgery Allergies: Allergies Allergy/AdvReac Type Severity Reaction Status Date / Time No Known Allergies Allergy Mild NONE Verified 04/12/22 10:24 Review of Systems Sugical H&P ROS: Negative: Constitution, Cardiovascular, Respiratory, Neuro logical, Psychiatric, Hem-Onc, Allergic/Immunologic, Gastrointestinal, Genitourinary, Musculoskeletal, Integumentary, Endocrine and Eyes/Ears/Nose/Throat Exam Surgical H&P Exam: Normal: HEENT, Normal: Heart, Normal: Lungs, Normal: Extremities, Normal: Abdomen, Normal: Skin and Normal: Neurological Plan Diagnosis/Plan: Unchanged I have reviewed the history and physical and performed a pertinent physical examination on my patient. No changes have occurred unless specified.
--- NOTE | 2022-08-12 11:15 | P.OP_ITS ---
Operative Note Operative Note Date of Service: 08/12/22 Narrative: Operative Information Procedure Description: EGD, Colonoscopy Indication: hx of barretts, screening Anesthesia: MAC FLEXIBLE TRANSORAL UPPER GASTROINTESTINAL ENDOSCOPY AND COLONOSCOPY PROCEDURE NOTE UPPER ENDOSCOPY Consent: Indications for the procedure and potential complications of bleeding, perforation, reaction to medications and missed diagnosis were discussed with the patient and informed consent was obtained. Instrument: Olympus GIF H 190 J mid size upper endoscope Monitoring: Vital signs and clinical assessment, continuous EKG monitoring, Pulse oximetry, Carbon Dioxide monitoring and blood pressure monitoring were done throughout the procedure. Procedure: The patient was placed in the left lateral decubitis position and pre-procedure medications were administered and a bite block was placed. The endoscope was inserted into the mouth and advanced under direct vision to the third part of duodenum. A careful inspection was made as the upper endoscope was withdrawn including a retroflexed examination of the proximal stomach; Findings and interventions are described below. Findings: Larynx:normal Esophagus: GE junction at 33 cm, diaphragm hiatus at 33 cm, bogginess and swelling with erythema at GEJ, bx taken as well as from distal esophagus Stomach: Patchy erythematous mucosa. Biopsies were obtained. Grade 2 flap valve on retroflexed examination of the cardia. There appeared to be a fundoplication and some suture material in the fundus. Duodenum: mild bulbar duodenitis Intervention: Biopsies as noted above COLONOSCOPY Instrument: Olympus variable stiffness pediatric scope 190L Colonoscopy Monitoring: Vital signs and clinical assessment, continuous EKG monitoring, Pulse oximetry, Carbon Dioxide monitoring and blood pressure monitoring were done throughout the procedure. Colon withdrawal time was 14 minutes. Procedure: The patient was placed in the left lateral decubitis position and pre-procedure medications were administered. After a digital rectal examination of the ano-rectum, the video colonoscope was inserted into the rectum and advanced through the colon to the cecum/TI. The colonoscope was slowly withdrawn in a retrograde panoramic fashion and the colon mucosa was carefully examined including a retroflexed view of the rectum. Findings and interventions are described below. Procedure Difficulty: moderate Findings: Terminal Ileum-not intubated due to looping Cecum:normal Ascending Colon: x 2 sessile polyps 13-14 mm removed with cold snare Transverse Colon -normal Descending Colon: x 2 sessile polyps 12-14 mm removed with cold snare Sigmoid Colon: moderate diverticulosis, 10 mm sessile polyp removed with cold snare Rectum: Retroflexion with small internal hemorrhoids, grade I Anorectum - normal Colon preparation: [place] Bowel Preparation Scale Right colon; 2 Transverse colon: 2 Left colon; 2 (0 = Unprepared colon segment with mucosa not seen due to solid stool that cannot be cleared. 1 = Portion of mucosa of the colon segment seen, but other areas of the colon segment not well seen due to staining, residual stool and/or opaque liquid. 2 = Minor amount of residual staining, small fragments of stool and/or opaque liquid, but mucosa of colon segment seen well. 3 = Entire mucosa of colon segment seen well with no residual staining, small fragments of stool or opaque liquid) Impression and Post Procedure Diagnosis: Endoscopy Findings: esophagitis gastritis duodenitis Colonoscopy Findings: polyps internal hemorrhoids diverticular disease Plan: Await Pathology results Repeat Colonoscopy in 1-2 years or earlier if clinically indicated (may have sessile serrated syndrome, will await bx) High fiber diet leaflet avoid straining at stool, epsom salts and sitz bath, anusol supps or cream GERd precautions confirm surgical hx with her again should be on PPI if not taking Above findings were reviewed with the patient and relevant handouts were provided if indicated.
[2022-08-12 11:19] VITALS: BP 111/73; PULSE 87; RESP 16; TEMP 36.1; O2SAT 98
[2022-08-12 11:34] VITALS: BP 143/86; PULSE 60; RESP 18; O2SAT 98
[2022-08-12 11:49] VITALS: BP 139/65; PULSE 61; RESP 18; TEMP 36.1; O2SAT 97
[2022-08-12] MEDS: Tetracaine HCl/PF 0.5% Oph Sol 4 ML DROPS 3 DROP EYE-LEFT (12:00)
[2022-08-12] MEDS: Erythromycin Base 0.5% Oph Oin 1 GM TUBE 1 CM EYE-LEFT (12:04)
== END 2022-08-12 12:27 | disposition home or self-care (01) ==
PROVIDERS: PCP Internal Medicine; Visit Provider Internal Medicine Gastroenterology
PROC: (CPT 45385; principal; 2022-08-12 11:00)
DX: Z12.11 Encounter for screening for malignant neoplasm of colon (principal); Z86.010 Personal history of colon polyps; D12.2 Benign neoplasm of ascending colon; D12.4 Benign neoplasm of descending colon; D12.5 Benign neoplasm of sigmoid colon; K57.30 Diverticulosis of large intestine without perforation or abscess without bleeding; K64.0 First degree hemorrhoids; K59.04 Chronic idiopathic constipation; K22.70 Barrett's esophagus without dysplasia; K29.70 Gastritis, unspecified, without bleeding; K29.80 Duodenitis without bleeding; K20.80 Other esophagitis without bleeding; K22.5 Diverticulum of esophagus, acquired; I10 Essential (primary) hypertension; J45.909 Unspecified asthma, uncomplicated; M81.0 Age-related osteoporosis without current pathological fracture; Z79.899 Other long term (current) drug therapy; F17.210 Nicotine dependence, cigarettes, uncomplicated
CPT/HCPCS: 45385; 43239; 88305; 88342

== ENCOUNTER → 2022-08-27 10:05 | Outpatient (BNVA) | payer OTHER, SELFPAY | PROVIDERS: PCP Internal Medicine; Visit Provider Nurse Practitioner Family | DX: K59.04 Chronic idiopathic constipation (principal); K57.90 Diverticulosis of intestine, part unspecified, without perforation or abscess without bleeding; K29.70 Gastritis, unspecified, without bleeding; K21.9 Gastro-esophageal reflux disease without esophagitis; K20.90 Esophagitis, unspecified without bleeding; D36.9 Benign neoplasm, unspecified site; Z12.11 Encounter for screening for malignant neoplasm of colon | CPT/HCPCS: 99212 ==

== ENCOUNTER 2022-11-13 08:20 | Outpatient (REF) | payer OTHER, SELFPAY ==
--- NOTE | ~2022-11-13 | XR_ITS ---
EXAMINATION: LEFT SHOULDER AND LEFT HIP. CLINICAL INFORMATION: Pain. COMPARISON: None TECHNIQUE: Left shoulder 4 views. Left pelvis 2 views. FINDINGS: Left shoulder: 4 views of left shoulder reveal no visible acute fracture or bony abnormality. The soft tissues are normal. Left hip: There is no visible fracture, dislocation or subluxation seen. The soft tissues are normal. Is XR/XR shoulder LT min 2V IMPRESSION: 1. Unremarkable left shoulder exam. 2. Unremarkable left hip exam.
--- NOTE | ~2022-11-13 | XR_ITS ---
EXAMINATION: LEFT SHOULDER AND LEFT HIP. CLINICAL INFORMATION: Pain. COMPARISON: None TECHNIQUE: Left shoulder 4 views. Left pelvis 2 views. FINDINGS: Left shoulder: 4 views of left shoulder reveal no visible acute fracture or bony abnormality. The soft tissues are normal. Left hip: There is no visible fracture, dislocation or subluxation seen. The soft tissues are normal. Is XR/XR hip LT w PEL1V IMPRESSION: 1. Unremarkable left shoulder exam. 2. Unremarkable left hip exam.
== END 2022-11-13 08:21 | disposition home or self-care (01) ==
LOC: HO.XRAY 08:20
PROVIDERS: PCP Internal Medicine; Visit Provider Internal Medicine
DX: M25.512 Pain in left shoulder (principal); M25.552 Pain in left hip
CPT/HCPCS: 73030; 73502

== ENCOUNTER → 2022-11-26 09:48 | Outpatient (BNVA) | payer OTHER, SELFPAY | PROVIDERS: PCP Internal Medicine; Referring Provider Internal Medicine; Visit Provider Nurse Practitioner Family | DX: K59.04 Chronic idiopathic constipation (principal); K21.00 Gastro-esophageal reflux disease with esophagitis, without bleeding | CPT/HCPCS: 99212 ==

== ENCOUNTER 2023-02-08 07:50 | Outpatient (REF) | payer OTHER, SELFPAY ==
--- NOTE | ~2023-02-08 | MM_ITS ---
EXAMINATION: MM SCREENING DIGITAL BREAST TOMOSYNTHESIS, BILATERAL CLINICAL INFORMATION: Screening. Asymptomatic. The lifetime risk of breast cancer based on the Tyrer-Cuzick Model is 2%. COMPARISON: Mammography: 02/03/2022, 06/13/2019, 05/29/2018 TECHNIQUE: Digital breast tomosynthesis is performed in both the craniocaudal and mediolateral oblique views along with computer-aided detection (CAD). Synthesized 2D images are generated from the tomosynthesis. FINDINGS: There are scattered areas of fibroglandular density (ACR BI-RADS breast composition Category b). Breast tissue composition borders on predominantly fatty. Background stromal markings and scattered parenchymal densities are similar to prior exams. Nodule central 9:00 right breast is borderline decreased. No architectural abnormality. No abnormal calcifications. The axilla and skin contours are unremarkable. MM/MM tomosynthesis screening BI IMPRESSION: No mammographic evidence of malignancy. ASSESSMENT: BI-RADS 2: Benign RECOMMENDATION: Routine annual mammography screening. This patient's information was entered into a reminder system with a target due date for their next mammogram.
== END 2023-02-08 07:51 | disposition home or self-care (01) ==
LOC: HO.MAMMO 07:50
PROVIDERS: Visit Provider Internal Medicine
DX: Z12.31 Encounter for screening mammogram for malignant neoplasm of breast (principal)
CPT/HCPCS: 77063; 77067

== ENCOUNTER 2023-06-16 11:07 | Outpatient (REF) | payer OTHER, SELFPAY ==
[2023-06-16 14:27] LABS: Vitamin B12 266 pg/mL (200-900)
[2023-06-17 04:16] LABS: Syphilis Screen Nonreactive (Nonreactive)
[2023-06-17 10:09] LABS: Lyme Abs Screen <0.90 index
[2023-06-20 23:03] LABS: Methylmalonic Acid 132 nmol/L (87-318)
== END 2023-06-16 11:08 | disposition home or self-care (01) ==
LOC: HO.HHCL 11:07
PROVIDERS: Visit Provider Internal Medicine
DX: M79.2 Neuralgia and neuritis, unspecified (principal)
CPT/HCPCS: 36415; 82607; 83921; 86617; 86618; 86780

== ENCOUNTER 2023-06-16 13:39 | Outpatient (REF) | payer OTHER, SELFPAY ==
--- NOTE | ~2023-06-16 | XR_ITS ---
EXAMINATION: XR ANKLE, RIGHT XR FOOT, RIGHT CLINICAL INFORMATION: Pain. COMPARISON: Prior radiographs, most recently 06/25/2019. TECHNIQUE: AP, lateral, and mortise views of the right ankle. AP, lateral, and oblique views of the right foot. FINDINGS: Bony alignment and mineralization are normal. The ankle mortise is intact. No fracture, dislocation or right ankle joint effusion is seen. Boehler's angle is normal. There is a small posterior calcaneal spur. There is moderate bunion formation of the first metatarsal head. No focal soft tissue swelling, gas or foreign body is seen. XR/XR ankle RT min 3V IMPRESSION: 1. No fracture, dislocation or right ankle joint effusion is seen. 2. There is a small posterior calcaneal spur. 3. There is moderate bunion formation.
--- NOTE | ~2023-06-16 | XR_ITS ---
EXAMINATION: XR ANKLE, RIGHT XR FOOT, RIGHT CLINICAL INFORMATION: Pain. COMPARISON: Prior radiographs, most recently 06/25/2019. TECHNIQUE: AP, lateral, and mortise views of the right ankle. AP, lateral, and oblique views of the right foot. FINDINGS: Bony alignment and mineralization are normal. The ankle mortise is intact. No fracture, dislocation or right ankle joint effusion is seen. Boehler's angle is normal. There is a small posterior calcaneal spur. There is moderate bunion formation of the first metatarsal head. No focal soft tissue swelling, gas or foreign body is seen. XR/XR foot RT min 3V IMPRESSION: 1. No fracture, dislocation or right ankle joint effusion is seen. 2. There is a small posterior calcaneal spur. 3. There is moderate bunion formation.
== END 2023-06-16 13:40 | disposition home or self-care (01) ==
LOC: HO.HHCX 13:39
PROVIDERS: Visit Provider Internal Medicine
DX: M25.571 Pain in right ankle and joints of right foot (principal)
CPT/HCPCS: 73610; 73630

== ENCOUNTER 2023-06-27 11:02 | Outpatient (AMB) | payer OTHER, SELFPAY ==
[2023-06-27 11:15] VITALS: BP 130/75; PULSE 65; BMI 25.7
--- NOTE | 2023-06-27 11:15 | A.OFFVIS_ITS ---
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 Patient was encouraged to increase fluid intake and activity to promote better bowel motility. GERD (gastroesophageal reflux disease) Patient reports that she has been feeling better. Stopped taking pantoprazole, has no symptoms. Patient was taking pantoprazole for over 3 months. Patient was encouraged that if she will start having symptoms again she should start taking the pantoprazole. She will call the office. Patient was encouraged to avoid dietary triggers late night snacking. Staying upright for minimum 3 hours after meals discussed with patient. I will see patient in 3 months, sooner on as needed basis. Patient is agreeable to this plan and verbalizes understanding of instructions. She was given the opportunity to ask questions and all questions answered. ? Thank you for allowing me to participate in her care Plan Medications Changed From sennosides 8.6 mg PO BEDTIME 90 tabs 3RF constipation K59.00 To sennosides (Natural Senna Laxative) 8.6 mg PO BID 180 tabs 3RF constipation K59.00 TODAY'S VISIT: Patient is here today for follow-up. Patient reports that she has been doing quite well. Reports that she is moving her bowels without any issues now. Take Senokot twice a day on as needed basis. Patient no longer has acid reflux. Denies dyspepsia, dysphagia or odynophagia. Patient denies melena, hematochezia, unintentional weight loss or ribbon like stools. Patient is due to go for colonoscopy in the near future. Patient denies any GI concerning symptoms today [facility] Medical History Asthma Panda esophagus Chronic idiopathic constipation Diverticulosis Esophagitis Gastritis Hypertension Osteoporosis Tubular adenoma Surgical History History of esophagogastroduodenoscopy (EGD) Hx of colonoscopy Family History Mother Diabetes Father No problems noted. Social History Alcohol intake: never Patient Tobacco Use Status: Current everyday Tobacco user Tobacco use type: Cigarette Cigarettes Per Day: 3 Review of Systems Const Denies weight gain and Denies weight loss ENT Reports no additional complaints, Denies dysphagia and Denies odynophagia Card Reports no additional complaints Resp Reports no additional complaints GI Denies abdominal pain, Denies belching, Denies melena, Denies bloating, Denies change in bowel habits, Denies dysphagia, Denies excessive flatus, Denies dyspepsia, Denies heartburn, Denies diarrhea, Denies loose stools, Denies nausea, Denies odynophagia and Denies vomiting Musc Reports no additional complaints Neuro Reports no additional complaints Psych Reports no additional complaints Endo Reports no additional complaints Physical Exam Vital Signs: Last Vital Signs Pulse 65 06/27/23 11:15 BP 130/75 06/27/23 11:15 BMI result Body Mass Index 25.7 Const General: healthy appearing, no acute distress and well developed Nutritional Appearance: well nourished Orientation/consciousness: patient oriented x3 HEENT Head: Yes normal to inspection, Yes normocephalic and Yes atraumatic Face and sinus: Yes normal facial exam Mouth: Normal oral and palatal mucosa present Throat: Yes posterior oropharynx normal, Yes tonsils normal and Yes uvula midline Eyes General: appearance normal, both eyes and all related structures Neck Neck: Yes normal visual inspection, Yes full ROM and Yes trachea midline Thyroid: Thyroid normal Resp Effort & Inspection: normal respiratory effort, able to speak in complete sentences, no tracheal deviation and symmetric chest movement Auscultation: clear to auscultation bilaterally Cardio Rate: regular rate Heart sounds: S1 normal heart sound present and S2 normal heart sound present GI Inspection: Yes normal to inspection and No distended Palpation (GI): Soft to palpation, not firm, nontender and No hepatosplenomegaly present Auscultation: normal bowel sounds General: Yes no CVA tenderness Back/Spine/Pelvis Back: no CVA tenderness Skin General skin exam: elasticity normal, turgor normal and dry skin Neuro General: patient oriented x3 Psych Appearance: grossly normal Mental Status: mental status grossly normal Speech and movement: Normal speech and movement present Assessment & Plan Assessment & Plan (1) Chronic idiopathic constipation: Code(s): K59.04 - Chronic idiopathic constipation Plan: Continue taking Senokot. Patient was encouraged to increase fluid intake and activity to promote better bowel motility. Patient will return in 6 months we will discuss going for colonoscopy. Patient is agreeable to this plan and verbalizes understanding of instructions. She was given the opportunity to ask questions and all questions answered. Thank you for allowing me to participate in her care Coding Level of Care Code Est Pt Level 3 (67873) Diagnoses Chronic idiopathic constipation K59.04 Time Spent (min) 25 Comment 15 minutes spent with patient and additional 10 minutes spent reviewing her records
== END 2023-06-27 14:31 | disposition home or self-care (01) ==
PROVIDERS: Visit Provider Nurse Practitioner Family
DX: K59.04 Chronic idiopathic constipation (principal)
CPT/HCPCS: 99213

== ENCOUNTER → 2023-06-27 11:02 | Outpatient (BNVA) | payer OTHER, SELFPAY | PROVIDERS: Visit Provider Nurse Practitioner Family | DX: K59.04 Chronic idiopathic constipation (principal); Z79.899 Other long term (current) drug therapy | CPT/HCPCS: 99212 ==

== ENCOUNTER 2024-02-14 07:54 | Outpatient (REF) | payer OTHER, SELFPAY ==
--- NOTE | ~2024-02-14 | MM_ITS ---
EXAMINATION: MM SCREENING DIGITAL BREAST TOMOSYNTHESIS, BILATERAL CLINICAL INFORMATION: Screening. Asymptomatic. COMPARISON: Mammography: This study is compared with prior exams dating back to 2019. TECHNIQUE: Digital breast tomosynthesis is performed in both the craniocaudal and mediolateral oblique views along with computer-aided detection (CAD). Synthesized 2D images are generated from the tomosynthesis. FINDINGS: There are scattered areas of fibroglandular density (ACR BI-RADS breast composition Category b). In the upper outer quadrant of the right breast, at a middle depth, there is a focal asymmetry which warrants additional mammographic and targeted sonographic evaluation. In the left breast, there are no significant masses, abnormal calcifications, or other abnormalities. MM/MM tomosynthesis screening BI IMPRESSION: Focal asymmetry of the right breast warrants additional mammographic and targeted sonographic imaging. No mammographic signs of malignancy left breast. ASSESSMENT: BI-RADS BI-RADS 0 - Incomplete: Needs additional Imaging. RECOMMENDATION: 1. Additional views of the right breast. 2. Targeted ultrasound if warranted after review of the additional views. 3. Radiology department staff will contact the patient for additional imaging. Additional Imaging required This examination should not preclude the clinical evaluation of a suspicious palpable abnormality. This patient's information was entered into a reminder system with a target due date for their next mammogram.
== END 2024-02-14 07:55 | disposition home or self-care (01) ==
LOC: HO.MAMMO 07:54
PROVIDERS: PCP Internal Medicine; Visit Provider Internal Medicine
DX: Z12.31 Encounter for screening mammogram for malignant neoplasm of breast (principal)
CPT/HCPCS: 77063; 77067

== ENCOUNTER → 2024-02-14 08:00 | Outpatient (BNV) | payer OTHER, SELFPAY | PROVIDERS: PCP Internal Medicine; Visit Provider Radiology Diagnostic Radiology | DX: Z12.31 Encounter for screening mammogram for malignant neoplasm of breast (principal) | CPT/HCPCS: 77063; 77067 ==

== ENCOUNTER 2024-02-22 14:17 | Outpatient (REF) | payer OTHER, SELFPAY ==
--- NOTE | ~2024-02-22 | MM_ITS ---
EXAMINATION: MM DIAGNOSTIC DIGITAL BREAST TOMOSYNTHESIS, RIGHT CLINICAL INFORMATION: Follow-up for focal asymmetry upper outer quadrant right breast seen on screening exam. COMPARISON: Mammography: 02/14/2024, 02/08/2023, 02/03/2022, and dating back to 2018. TECHNIQUE: Digital breast tomosynthesis is performed. 2D images are generated from the tomosynthesis. The following views are obtained: Full-field digital 3-D right ML view, as well as 3-D digital spot compression right CC and MLO views. FINDINGS: There are scattered areas of fibroglandular density (ACR BI-RADS breast composition Category b). Additional views demonstrate complete effacement of the focal asymmetry in the upper outer right breast, consistent with summation artifact of superimposition of normal breast tissues. There are no suspicious masses, suspicious grouped calcifications, or areas of architectural distortion in the right breast. The parenchymal pattern is stable from prior exams. MM/MM tomosynthesis added views R IMPRESSION: No findings suspicious for malignancy. Focal asymmetry right breast upper outer quadrant does not persist, and is consistent with summation artifact of normal overlapping breast tissues. ASSESSMENT: BI-RADS BI-RADS 1 - Negative RECOMMENDATION: 1 year F/U Results were provided to the patient at time of visit by the technologist. This patient's information was entered into a reminder system with a target due date for their next mammogram.
== END 2024-02-22 14:18 | disposition home or self-care (01) ==
LOC: HO.MAMMO 14:17
PROVIDERS: Visit Provider Internal Medicine
DX: N64.89 Other specified disorders of breast (principal)
CPT/HCPCS: 77061; 77065

== ENCOUNTER → 2024-02-22 14:30 | Outpatient (BNV) | payer OTHER, SELFPAY | PROVIDERS: Visit Provider Radiology Diagnostic Radiology | DX: R92.8 Other abnormal and inconclusive findings on diagnostic imaging of breast (principal) | CPT/HCPCS: 77065; G0279 ==

== ENCOUNTER 2024-03-26 14:44 | Emergency (ER) | payer OTHER, SELFPAY ==
[2024-03-26] VITALS (9 sets, daily range): BP systolic 75–161; BP diastolic 51–72; PULSE 54–74; RESP 13–18; TEMP 36.6–36.7; O2SAT 94–99; BMI 25.3
--- NOTE | 2024-03-26 15:02 | ECG_ITS ---
Test Reason : SYNCOPE Blood Pressure : / mmHG Vent. Rate : 058 BPM Atrial Rate : 058 BPM P-R Int : 150 ms QRS Dur : 084 ms QT Int : 426 ms P-R-T Axes : 065 042 033 degrees QTc Int : 418 ms Sinus bradycardia Otherwise normal ECG When compared with ECG of 05-MAY-2022 10:39, No significant change was found Referred By: Generic ED Physician Electronically Signed By:FAUZIA KENDRICK
[2024-03-26 15:13] LABS: MANUAL DIFF FLAG NO
[2024-03-26 15:16] LABS: Basophils Percent Auto 0.4 % (0-2); Eosinophils Absolute Auto 0.1 X10*3/uL (0.0-0.4); Eosinophils Percent Auto 1.2 % (0-4); Hematocrit 42.7 % (37.0-47.0); Hemoglobin 14.1 g/dl (12.0-16.0); Imm Gran Abs Auto 0.03 X10*3/uL (0.00-0.03); Imm Gran Pct Auto 0.4 % (0.0-0.4); Lymphocytes Absolute Auto 3.6 X10*3/uL (1.2-4.9); Lymphocytes Percent Auto 44.9 % (20-40); Mean Corpuscular Hemoglobin 28.2 pg (27.0-33.0); Mean Corpuscular Volume 85.4 fL (80.0-98.0); Mean Platelet Volume 10.1 fL (9.4-12.3); Monocytes Absolute Auto 0.6 X10*3/uL (0.1-1.2); Monocytes Percent Auto 7.8 % (2-11); Neutrophils Absolute Auto 3.7 x10*3/uL (2.0-8.3); Neutrophils Percent Auto 45.3 % (45-73); Platelet Count 189 X10*3/uL (160-400); Red Cell Distribution Width 13.8 % (11.0-16.0); White Blood Count 8.1 X10*3/uL (4.8-10.8)
--- NOTE | 2024-03-26 15:43 | ED.GENADULT ---
HPI - General Adult General Chief complaint: Syncope Stated complaint: abd pain Time Seen by Provider: 03/26/24 15:35 Source: patient, family and EMS Mode of arrival: EMS Limitations: no limitations History of Present Illness ED Provider: Dr. Montoya HPI narrative: Patient had epigastric pain went to lie on the couch and she had syncopal event. She denies fever, vomiting or diarrhea Onset (ago): hour(s) Location: abdomen Severity: mild Pain Consistency: constant Associated symptoms: denies other symptoms Related Data Previous Rx's ?Medication ?Instructions ?Recorded acetaminophen 500 mg tablet 1,000 mg (2 x 500 mg) PO QID PRN 05/23/21 pain #30 tabs cyclobenzaprine 5 mg tablet 5 mg PO TID PRN muscle spasm #14 05/23/21 tabs lidocaine 5 % topical patch 1 patch topical DAILY PRN Back 05/23/21 pain #15 ea sennosides 8.6 mg tablet (Natural 8.6 mg PO BID constipation #180 11/26/22 Senna Laxative) tabs pantoprazole 40 mg tablet,delayed 40 mg PO DAILY #20 tabs 03/26/24 release (Protonix) Allergies Allergy/AdvReac Type Severity Reaction Status Date / Time No Known Allergies Allergy Mild NONE Verified 03/26/24 15:00 Review of Systems Review of Systems: Yes all other systems are reviewed and are negative Neurologic: Denies Sensory deficit (Neuro) [facility] Past Medical History Medical History Diverticulosis Esophagitis Chronic idiopathic constipation Gastritis Tubular adenoma Panda esophagus Osteoporosis Hypertension Asthma Surgical History History of esophagogastroduodenoscopy (EGD) Hx of colonoscopy Family History Family History Mother Diabetes Father No problems noted. Social History Social History Alcohol intake: never Comment: mediated with eye drops and eye ointment for eye pain, much improved now Patient Tobacco Use Status: Current everyday Tobacco user Tobacco use type: Cigarette Cigarettes Per Day: 3 Smoked in Last 30 Days: Yes Use of substances other than those prescribed or required for medical reasons: No Advance Directives: No Advance Directives Information Provided: Yes Do you have a plan to hurt others: No Plan Physical Exam ED Vital Signs: Vital Signs - 24 hr 03/26/24 14:58 03/26/24 15:12 03/26/24 15:19 Temperature 97.8 F Pulse Rate 66 54 Respiratory Rate 16 Blood Pressure 95/51 L 110/61 Pulse Oximetry 97 96 Oxygen Delivery Method Room Air Room Air 03/26/24 15:20 03/26/24 15:20 03/26/24 15:21 Temperature 98.0 F Pulse Rate 68 69 65 Respiratory Rate 13 Blood Pressure 113/68 128/67 75/56 L Pulse Oximetry 99 Oxygen Delivery Method Room Air 03/26/24 15:32 03/26/24 15:33 03/26/24 16:09 Temperature Pulse Rate 55 66 68 Respiratory Rate 18 Blood Pressure 151/56 H 159/62 H 127/52 L Pulse Oximetry 97 Oxygen Delivery Method Room Air 03/26/24 16:09 Temperature Pulse Rate 74 Respiratory Rate Blood Pressure 161/67 H Pulse Oximetry Oxygen Delivery Method BMI result Body Mass Index 25.3 Const General: healthy appearing Nutritional Appearance: average body habitus Orientation/consciousness: oriented to person and patient oriented x3 Limitations: no limitations HENMT Head: Yes normal to inspection Ears: external ears normal General nose exam: Normal external nose present Mouth: Normal oral and palatal mucosa present and oropharynx normal Throat: Yes posterior oropharynx normal Eyes General: appearance normal, both eyes and all related structures Neck Neck: Yes normal visual inspection Chest Chest palpation & inspection: normal inspection of the chest Resp Auscultation: clear to auscultation bilaterally Cardio Jugular venous distension: no JVD Rate: regular rate Rhythm: regular rhythm Heart sounds: S1 normal heart sound present and S2 normal heart sound present GI Inspection: Yes normal to inspection Palpation (GI): Soft to palpation, nontender and No hepatosplenomegaly present Auscultation: normal bowel sounds General: Yes no CVA tenderness Back/Spine/Pelvis Back: no CVA tenderness Skin General skin exam: no rashes or lesions noted Neuro General: oriented to person and patient oriented x3 Cranial nerves: Yes CN's II-XII intact bilaterally Motor exam (neuro): 5/5 motor strength present throughout Sensory Exam: No Sensory deficit (Neuro) Extrem General: Yes normal to inspection Psych Appearance: grossly normal Course Reevaluation(s) Reevaluation #1: no epigastric pain on palpation liver and pancreas negative for inflammation, will treat for gastritis. Syncope likely vasovagal Time: 18:03 Medications Administered Discontinued Medications Generic Name Dose Route Start Last Admin Trade Name Freq PRN Reason Stop Dose Admin Sodium Chloride 1,000 mls @ 999 mls/hr 03/26/24 15:30 03/26/24 16:08 Ns IV 03/26/24 16:30 999 mls/hr .Q1H1M BARON Administration Medical Decision Making Differential Diagnosis Differential Diagnoses: The differential diagnosis associated with the presentation includes (hepatitis, pancreatitis, cardiac ischemia, gastritis, peptic ulcer were all considered) Admission/Observation Consideration of admission/observation: Escalation of care including admission/observation considered (upon arrival patient considered for admission) Lab Data 03/26/24 15:09 03/26/24 15:09 Labs: Lab Results 03/26/24 03/26/24 Range/Units 15:09 16:56 WBC 8.1 (4.8-10.8) X10*3/uL RBC 5.00 (4.20-5.50) X10*6/uL Hgb 14.1 (12.0-16.0) g/dl Hct 42.7 (37.0-47.0) % MCV 85.4 (80.0-98.0) fL MCH 28.2 (27.0-33.0) pg MCHC 33.0 (31.0-35.0) g/dl RDW 13.8 (11.0-16.0) % Plt Count 189 (160-400) X10*3/uL MPV 10.1 (9.4-12.3) fL Immature Gran % (Auto) 0.4 (0.0-0.4) % Neut % (Auto) 45.3 (45-73) % Lymph % (Auto) 44.9 H (20-40) % [place] % (Auto) 7.8 (2-11) % Eos % (Auto) 1.2 (0-4) % Baso % (Auto) 0.4 (0-2) % Lymph # (Auto) 3.6 (1.2-4.9) X10*3/uL [place] # (Auto) 0.6 (0.1-1.2) X10*3/uL Eos # (Auto) 0.1 (0.0-0.4) X10*3/uL Baso # (Auto) 0.0 (0.0-0.2) X10*3/uL Abs Immat Gran (auto) 0.03 (0.00-0.03) X10*3/uL Absolute Neuts (auto) 3.7 (2.0-8.3) x10*3/uL Absolute Nucleated RBC 0.000 (0.0-0.012) X10*3/uL Nucleated RBC % (auto) 0.0 (0.0-0.2) /100WBC Sodium 144 (135-145) mmol/L Potassium 3.8 (3.3-5.1) mmol/L Chloride 110 H (96-108) mmol/L Carbon Dioxide 24 (22-29) mmol/L Anion Gap 14 (12-20) BUN 9 (9-16) mg/dL Creatinine 0.80 (0.5-1.4) mg/dL Estim Creat Clear Calc 47.9 Estimated GFR > 60 Random Glucose 79 (60-115) mg/dL Calcium 9.3 (8.4-10.2) mg/dL Total Bilirubin 0.3 (0.0-1.0) mg/dL Direct Bilirubin 0.1 (0.0-0.5) mg/dL AST 24 (5-31) U/L ALT 17 (0-31) U/L Alkaline Phosphatase 62 (39-117) U/L Troponin I High Sens < 2.7 (<3.5-17.0) ng/L Total Protein 6.8 (6.5-8.0) g/dL Albumin 3.9 (3.5-5.0) g/dL Lipase 35 (8-78) U/L Urine Color Yellow Urine Appearance Clear Urine pH 7.0 (5.0-9.0) Ur Specific [place] 1.010 (1.005-1.025) Urine Protein Negative (Neg-Trace) mg/dL Urine Glucose (UA) Negative (Negative) mg/dL Urine Ketones Negative (Negative) mg/dL Urine Blood Negative (Negative) Urine Nitrite Negative (Negative) Ur Leukocyte Esterase Small (1+) H (Negative) Urine RBC 0-2 (0-2) /HPF Urine WBC 0-5 (0-5) /HPF Ur Squamous Epith Cells 0-2 (0-2) /HPF Urine Bacteria None Seen (None Seen) Hyaline Casts 0-2 (0-2) /LPF Independent Interpretation I performed an independent interpretation of an: EKG (sinus 58, no st or twave changes) Independent Historian Clinical information obtained from an independent historian. History obtained from or confirmed by: Other (family) Tests considered The following testing was considered but not selected: CT of abdomen considered but non focal abdominal exam, no elevation of WBCS, normal liver and pancreatic enzymes Prescription Management I considered prescription management with: Antibiotic (UA negative no evidence of UTI) Discharge Plan Discharge Clinical Impression: Syncope, vasovagal Gastritis Qualifiers: Gastritis type: unspecified gastritis Chronicity: unspecified Gastritis bleeding: without bleeding Qualified Code(s): K29.70 - Gastritis, unspecified, without bleeding Patient Disposition: Home, Self-Care Instructions: Gastritis (ED), Syncope (ED) Prescriptions: New pantoprazole [Protonix] 40 mg tablet,delayed release (DR/EC) 40 mg PO DAILY Qty: 20 0RF No Action lidocaine 5 % adhesive patch,medicated 1 patch topical DAILY PRN (Reason: Back pain) Qty: 15 0RF Rx Instructions: leave on most painful area for up to 12 hrs acetaminophen 500 mg tablet 1,000 mg PO QID PRN (Reason: pain) Qty: 30 0RF cyclobenzaprine 5 mg tablet 5 mg PO TID PRN (Reason: muscle spasm) Qty: 14 0RF Rx Instructions: This medication may cause drowsiness, use with caution sennosides [Natural Senna Laxative] 8.6 mg tablet 8.6 mg PO BID Qty: 180 3RF Referrals: Bre Ortega MD [Primary Care Provider] - 3 days Print Language: Mosotho
[2024-03-26 15:53] LABS: Anion Gap 14 (12-20); Blood Urea Nitrogen 9 mg/dL (9-16); Calcium 9.3 mg/dL (8.4-10.2); Carbon Dioxide 24 mmol/L (22-29); Chloride 110 mmol/L (96-108); Creatinine Clr Calc Pharmacy 47.9; Estimated Glomerular Filt Rate > 60; Glucose Random 79 mg/dL (60-115); Potassium 3.8 mmol/L (3.3-5.1); Sodium 144 mmol/L (135-145)
[2024-03-26 15:57] LABS: Troponin-I High Sensitivity < 2.7 ng/L (<3.5-17.0)
[2024-03-26] MEDS: 0.9 % Sodium Chloride 1,000 ML 999 ML IV (16:08)
--- NOTE | 2024-03-26 16:10 | PC.NURSE ---
patient a&ox3, iv inserted, labs drawn, ekg performed, orthostats performed on bilateral arms, pt noted to have lower blood pressure when sitting semi flowlers, playground monitor sinus nya, pt denies dizziness/lightheadedness at this time, family at bedside, ivf started per order, call payne within reach, will continue to monitor
[2024-03-26 17:03] LABS: Appearance Urine Clear; Color Urine Yellow; Glucose Urine UA Negative (Negative); Leukocyte Esterase Urine Small (1+) (Negative); Nitrite Urine Negative (Negative); UMIC TRIGGER UACC YES; Urine Blood Negative (Negative); Urine Ketones Negative (Negative); Urine Protein Negative (Neg-Trace)
[2024-03-26 17:11] LABS: Bacteria Urine None Seen (None Seen); Hyaline Casts Urine 0-2 /LPF (0-2); RBC Urine 0-2 /HPF (0-2); Squamous Epithelial Cell Urine 0-2 /HPF (0-2); UACC Culture Trigger YES; WBC Urine 0-5 /HPF (0-5)
[2024-03-26 17:21] LABS: Alanine Aminotransferase 17 U/L (0-31); Albumin Level 3.9 g/dL (3.5-5.0); Alkaline Phosphatase 62 U/L (39-117); Aspartate Amino Transferase 24 U/L (5-31); Bilirubin Direct 0.1 mg/dL (0.0-0.5); Bilirubin Total 0.3 mg/dL (0.0-1.0); Lipase 35 U/L (8-78); Total Protein 6.8 g/dL (6.5-8.0)
--- NOTE | 2024-03-26 17:28 | PC.NURSE ---
ivf continue to run slowly, pt reminded to keep arm straight while fluids running
== END 2024-03-26 18:51 | disposition home or self-care (01) ==
PROVIDERS: Emergency Provider Emergency Medicine; PCP Internal Medicine
DX: R55 Syncope and collapse (principal); K29.70 Gastritis, unspecified, without bleeding; I10 Essential (primary) hypertension
CPT/HCPCS: 36415; 80048; 80076; 81001; 83690; 84484; 85025; 87086; 93005; 96360; 99284; 99285

== ENCOUNTER → 2024-03-26 15:02 | Outpatient (BNV) | payer OTHER, SELFPAY | PROVIDERS: Emergency Provider Emergency Medicine; PCP Internal Medicine; Visit Provider Internal Medicine | DX: R00.1 Bradycardia, unspecified (principal) | CPT/HCPCS: 93010 ==

== ENCOUNTER 2024-05-11 10:02 | Outpatient (AMB) | payer OTHER, SELFPAY ==
--- NOTE | 2024-05-11 07:55 | MHC.OFFVIS ---
Intake Visit Reasons: Current smoker Allergies No Known Allergies Allergy (Mild, Verified 03/26/24 15:00) NONE HPI HPI Current smoker: Details: Initial visit for this 78yo smoker with a 50+PYH. Patient has been smoking since age 17 for 61 years at 1ppd. Currently down to 1/4ppd . Denies marijuana use. Denies second hand smoke exposure. Denies exposure to chemicals or substances like asbestos. . Denies known family history of lung cancer. Denies personal history of cancers. Denies chest CT in last year. . Denies recent travel outside the [place]. Denies recent respiratory illness or recent hospitalization for respiratory issues. Reports testing positive for COVID.x 1. Admits receiving COVID Vaccine. x 2 . Denies fever, chills, new/worsening cough, hemoptysis, hoarseness or dysphagia. Denies significant chest pain, significant dyspnea or unintentional weight loss. Patient Lung Cancer Screening Questionnaire reviewed with patient by provider. . Shared Decision Making Completed. Patient meets criteria. Discussed in detail with patient, the risk vs benefit of LDCT screening. Patient consents to proceed with scan. Discussed smoking cessation. [facility] Medical History (Updated 05/08/24 @ 08:49 by Dionna Freed PA-C) Hypertension Hyperlipidemia Asthma Nicotine dependence, cigarettes, uncomplicated Osteoporosis Panda esophagus Esophagitis Gastritis Diverticulosis Chronic idiopathic constipation Tubular adenoma Surgical History (Updated 04/02/24 @ 09:44 by Dionna Freed PA-C) History of colonoscopy History of esophagogastroduodenoscopy (EGD) Family History Mother Diabetes Father No problems noted. Social History (Updated 05/11/24 @ 10:11 by Dionna Freed PA-C) Alcohol intake: never Comment: mediated with eye drops and eye ointment for eye pain, much improved now Patient Tobacco Use Status: Current everyday Tobacco user Tobacco use type: Cigarette Cigarettes Per Day: 5 Years Smoked: (onset 17yo, 1ppd x 61yrs, now 1/4ppd - 50+PYH) Assessment & Plan Assessment & Plan (1) Nicotine dependence, cigarettes, uncomplicated: Comment: (current smoker, onset 17yo, 1ppd x 61yrs, now 1/4ppd - 50+PYH) Code(s): F17.210 - Nicotine dependence, cigarettes, uncomplicated Category: Medical Plan: - SDM visit completed today in office. - Patient meets criteria for LDCT for lung cancer screening purposes and is asymptomatic. - Smoking cessation counseling offered. Patients can always call [phone]. - Will arrange for a LDCT scan of the chest for screening purposes at [facility]. - Risks, benefits, and alternatives were discussed in detail and the patient agrees to proceed. - Risks discussed include but are not limited to: radiation exposure, anxiety during testing and while awaiting results, false negatives, false positives and possibility of additional intervention such as further imaging or surgical procedures for benign disease. - Benefits are obviously detection of lung cancer at an early stage which can lead to improved outcomes. - Discussed the importance of screening program compliance with adherence to yearly LDCT scan as scheduled - or sooner interval scans for personalized screening regimen. - Discussed follow up plan. Our office will send a letter discussing results and if needed set up phone call and office visit based on CT findings. - Patient educated on results categorization and the management decisions for suspicious findings potentially found on the screening LDCT scan. Any patient with a Lung RADS score of 3 or 4 will be reviewed by a multidisciplinary team at [facility] to form a plan of action in regards to scan findings. - If further work up is warranted for a suspicious lung finding this will be followed by the Lung Cancer Screening program in conjunction with the Thoracic Surgery Department at [facility]. - A copy of the office note and LDCT will be sent to the patient's PCP - as well as documentation on any associated further plans of care. - Incidental findings on LDCT are the PCP's responsibility. These findings are indicated with an S finding on the LDCT Assessment. A note discussing the findings will be sent to the PCP who is then responsible for further management. - All questions answered.? Coding Level of Care Code Lung Cancer Screening [id number] Diagnoses Nicotine dependence, cigarettes, uncomplicated F17.210
== END 2024-05-11 10:33 | disposition home or self-care (01) ==
PROVIDERS: PCP Internal Medicine; Referring Provider Internal Medicine; Visit Provider Physician Assistant Medical
DX: F17.210 Nicotine dependence, cigarettes, uncomplicated (principal)
CPT/HCPCS: G0296

== ENCOUNTER 2024-05-11 10:13 | Outpatient (REF) | payer OTHER, SELFPAY ==
--- NOTE | ~2024-05-11 | CT_ITS ---
EXAMINATION: CT LOW-DOSE SCREENING CHEST WITHOUT CONTRAST CLINICAL INFORMATION: Nicotine dependence, cigarettes, uncomplicated. The patient is a current smoker with a 50 pack-year history of smoking. COMPARISON: Chest x-ray 05/05/2022 and 06/03/2013. No prior chest CT. Correlation made with CT abdomen and pelvis 05/05/2022. TECHNIQUE: Multidetector volumetric CT imaging of the chest is performed on a Siemens SOMATOM Definition scanner without contrast using low dose technique. Additional 2D coronal and sagittal reformatted images and axial 3D maximum intensity projection (MIP) images are generated on the CT workstation. This CT examination was performed using dose optimization techniques as appropriate, variously including the following: *Automated exposure control *Adjustment of mA and/or kV according to patient size (this includes techniques or standardized protocols for targeted exams where dose is matched to indication/reason for exam; i.e. extremities or head) *Use of iterative reconstruction technique TOTAL EXAM DLP: 38 mGy-cm. CTDIvol: 1.21 mGy. FINDINGS: PULMONARY NODULES: -3 mm calcified granuloma posterior right upper lobe (series 5, image 265). This is benign. -2 mm groundglass nodule lateral left apex (series 5, image 55). -2 mm subpleural nodule posterior segment left upper lobe (series 5, image 93). -2 mm nodule left upper lobe laterally (series 5, image 125). LUNGS: -There is mild centrilobular emphysema with upper lobe predominance present. -There are no consolidations or abnormal groundglass opacities. -Minimal scarring or atelectasis in the bilateral lower lobes medially and also within the lateral inferior lingula and right middle lobe. -Right greater than left apical pleural parenchymal scarring. -Small airways appear grossly normal. Trachea and main bronchi appear normal. MEDIASTINUM: Normal thyroid. -Moderate to heavy calcification of the aorta, with areas of mild ectasia but no discrete aneurysm or dissection noted on this noncontrast study. Three-vessel branching pattern. -No adenopathy in the mediastinum or hilar regions. -Main pulmonary artery is normal in size. -Esophagus is normal. -Heart size is normal. No pericardial effusion. CORONARY ARTERY CALCIFICATION: There is moderate three-vessel coronary calcification. CHEST WALL/AXILLA: No masses or abnormal lymph nodes. UPPER ABDOMEN: Densities at the GE junction likely related to prior surgery. -Abdominal aorta is heavily calcified, with a partially imaged focal infrarenal aneurysm, which in retrospect appears similar to 05/05/2022 CT abdomen pelvis. There is likely a chronic dissection in this region, with calcified intimal flap. Consider follow-up imaging of the abdominal aneurysm. -Suspect subtle gallstones. -Heavy calcification of the aortic branches noted. -Normal adrenal glands and imaged kidneys. -Splenule noted abutting the hilum of the spleen. OSSEOUS STRUCTURES: No suspicious lytic or blastic bony lesions. Mild chronic compression deformity of T11, without change. CT/CT lung screening IMPRESSION: 1. A few tiny 2 mm scattered pulmonary nodules. No suspicious nodules identified. 2. Mild centrilobular emphysema with apical predominance. 3. No active lung disease. 4. Heavily calcification of the thoracic and abdominal aorta, with mild ectasia in the thoracic region, and a incompletely imaged aneurysm with focal dissection in the infrarenal abdominal aorta. Consider follow-up imaging of the abdominal aorta. 5. Suspect subtle gallstones. 6. Moderate three-vessel coronary calcification. 7. Chronic mild compression deformity of T11, unchanged. 8. Additional ancillary findings as discussed in the body of report. ASSESSMENT: 1. Lung-RADS Category 2: Benign appearance or behavior of nodules. 2. Lung-RADS Category S: None. RECOMMENDATION: Continued routine annual low-dose CT lung screening in 1 year is recommended. An order for CT CHEST LOW DOSE CANCER SCREENING ([id number]) can be placed.
== END 2024-05-11 10:14 | disposition home or self-care (01) ==
LOC: HO.CT 10:13
PROVIDERS: Visit Provider Physician Assistant Medical
DX: Z12.2 Encounter for screening for malignant neoplasm of respiratory organs (principal); F17.210 Nicotine dependence, cigarettes, uncomplicated
CPT/HCPCS: 71271; G0296

== ENCOUNTER → 2024-05-11 10:13 | Outpatient (BNV) | payer OTHER, SELFPAY | PROVIDERS: Visit Provider Radiology Diagnostic Radiology | DX: F17.200 Nicotine dependence, unspecified, uncomplicated (principal) | CPT/HCPCS: 71271 ==

== ENCOUNTER 2024-05-28 16:21 | Outpatient (REF) | payer OTHER, SELFPAY ==
[2024-05-28 18:37] LABS: Ferritin 158 ng/mL (10-250)
== END 2024-05-28 16:22 | disposition home or self-care (01) ==
LOC: HO.HHCL 16:21
PROVIDERS: Visit Provider Internal Medicine
DX: Z13.89 Encounter for screening for other disorder (principal)
CPT/HCPCS: 36415; 82728

== ENCOUNTER 2024-05-31 13:20 | Outpatient (REF) | payer OTHER, SELFPAY | END 2024-05-31 13:21 | disposition home or self-care (01) | LOC: HO.HHCLNP 13:20 | PROVIDERS: Visit Provider Internal Medicine | DX: Z13.89 Encounter for screening for other disorder (principal) | CPT/HCPCS: 87338 ==

== ENCOUNTER 2024-09-05 14:07 | Outpatient (REF) | payer OTHER, SELFPAY ==
--- NOTE | ~2024-09-05 | CT_ITS ---
EXAMINATION: CT ABDOMEN AND PELVIS WITH CONTRAST CLINICAL INFORMATION: Weight loss, pain COMPARISON: CT abdomen/pelvis without contrast May 05, 2022 TECHNIQUE: Multiple axial images were obtained from the superior aspect of the liver through the pubic symphysis after the administration of 30 mL of intravenous Omnipaque. Images were evaluated on independent dedicated 3-D workstation and 3-D images were reconstructed with concurrent radiologist supervision and subsequently interpreted. Oral contrast was administered. This CT examination was performed using dose optimization techniques as appropriate, variously including the following: *Automated exposure control *Adjustment of mA and/or kV according to patient size (this includes techniques or standardized protocols for targeted exams where dose is matched to indication/reason for exam; i.e. extremities or head) *Use of iterative reconstruction technique DLP: 286 mGy-cm FINDINGS: LUNG BASES: Linear atelectasis at the bases. CARDIOMEDIASTINUM: The visualized heart is normal in size without pericardial effusion. No coronary artery calcification. LIVER: Homogeneous in attenuation. Normal in size. GALLBLADDER: Noninflamed. BILIARY SYSTEM: No intrahepatic or extrahepatic biliary dilation. PANCREAS: Homogeneous in attenuation. SPLEEN: Normal in size. GENITOURINARY: Bilateral kidneys demonstrate symmetric enhancement. No perinephric fluid collection. No renal calculi. No hydroureteronephrosis. ADRENAL GLANDS: Unremarkable. REPRODUCTIVE: Uterus and and bilateral adnexa are unremarkable. GASTROINTESTINAL: Mild thickening at the gastroesophageal junction extending into the lesser curvature (3; 3-8).. The visualized alimentary tract is normal in course. Diverticular disease without diverticulitis. No evidence of obstruction. APPENDIX: The appendix is seen in its entirety and is unremarkable. PERITONEUM: No pneumoperitoneum. No intra-abdominal fluid collection. VASCULATURE: Infrarenal abdominal aortic aneurysm measuring up to 35 x 32 mm in greatest diameter. Within the aneurysm, there is a large penetrating atheromatous ulcer with opening size of 12 mm and associated plaque/thrombus. There is no evidence of impending rupture. Moderate aorto iliac atherosclerotic calcifications. LYMPH NODES: No pathologically enlarged abdominal or pelvic lymph nodes. SOFT TISSUES/MUSCULOSKELETAL: There is no acute fracture or significant focal osseous lesion. CT/CT abdomen pelvis w IV con IMPRESSION: 1. No acute abdominal or pelvic pathology. 2. Subtle mural thickening along the gastroesophageal junction extending into the lesser curvature. This may be related to underdistention of the stomach. Correlate with symptoms of gastroesophageal reflux disease and consider GI consultation/endoscopy for further evaluation. 3. Juxtarenal abdominal aortic aneurysm measuring up to 35 x 32 mm in greatest diameter with eccentric penetrating atheromatous ulcer measuring 12 mm. The prior study was without contrast, this has mildly increased in size since April 2022. Based on published guidelines in J Am Kalli Radiol 2013; 10(10):789-794 and J Vasc Surg. 2018; 67:2-77, the recommendation for an abdominal aortic aneurysm with diameter 3.5-3.9 cm is follow-up every 2 years. 4. Diverticular disease without diverticulitis. Fleischner guidelines were followed. Electronically signed by: Davin Feliz DO 09/19/2024 08:14 PM [facility]
[2024-09-05] MEDS: iohexoL 350 MG/ML 100 ML INFUS..BTL IV (16:49)
[2024-09-05] MEDS: Barium Sulfate Oral (Berry) 450 ML ORAL.SUSP 900 ML PO (16:49)
[2024-09-07 16:19] LABS: Creatinine POC 0.9 mg/dL (0.5-1.4); GFR POC > 60
== END 2024-09-05 14:08 | disposition home or self-care (01) ==
LOC: HO.CT 14:07
PROVIDERS: PCP Internal Medicine; Visit Provider Internal Medicine
DX: R10.13 Epigastric pain (principal); R63.4 Abnormal weight loss
CPT/HCPCS: 74177; 82565; Q9967

== ENCOUNTER 2024-12-31 10:12 | Outpatient (REF) | payer OTHER, SELFPAY ==
--- OUTSIDE RECORDS SUMMARY | 2024-12-31 11:43 | XMS_ITS | Encounter Summary ---
Author Organization [email or web address] Address [address] [facility] 7t [place] [address] Care Team Providers Care Foreign Diplomat Name Role Phone Bre Ortega MD Primary Care Provider + Kenneth Doran PharmD Unavailable [phone] Reason for Visit * Reason Onset Date Comments Appointment Request 12/11/2024 Encounter Details Date Type Department Care Team ([facility] st Contact Info) Description 12/11/[address] [facility] MEDICINE [address] [place], [place] [phone] Bre Ortega MD [address] [place], [place] [phone] Appointment Request Social History Tobacco Use Types Packs/Day Years Used Date Smoking Tobacco: Every Day Cigarettes Smokeless Tobacco: Never Comments:Patient previously smoked 1/2 pack daily has reduced to 3-4 cigarettes since starting CDTM. Hx smoking 1ppd for 50y, quit on 2020 Alcohol Use Standard Drinks/Week Comments Not Currently 0 (1 standard drink = 0.6 oz pur e alcohol) Depression Answer Date Recorded Patient Health Questionnaire-9 Score 0 07/30/2024 Patient Health Questionnaire-9 Score 0 07/30/2024 Last PHQ-9: Questionnaire Data Not on file 0 07/30/2024 Housing Stability Answer Date Recorded What is your housing situation today? I have hafsa fernandez 08/15/[address] you li ve. Do you have problems with any of the following? None of the above 08/15/2023 Food Insecurity Answer Date Recorded Within the past 12 months, y ou worried that your food would run out before you got money to buy more: Never True 08/15/2023 Within the past 12 months,th e food you bought just didn't last and you didn't have enough money to get more: Never True Transportation Answer Date Recorded In the past 12 months, has l ack of transportation kept you from medical appts, meetings, work or from getting things needed for daily living? No 08/15/2023 Utilities Answer Date Recorded In the past 12 months, has t he electric, gas, oil or water company threatened to shut off services in your home? No 08/15/2023 Depression Answer Date Recorded Patient Health Questionnaire-2 Score 0 07/30/2024 Internet Access Answer Date Recorded Internet Access Q1 Yes 11/21/2024 Internet Access Q2 Not on file 11/21/2024 Comments Unknown Sex and Gender Information Value Date Recorded Sex Assigned at Female 08/30/2022 10:14 AM EDT Legal Sex Female 10:14 AM EDT Gender Identity Female 08/30/2022 10:14 AM EDT Sexual Orientation Straight 08/30/2022 10 :14 AM EDT documented as of this encounter Miscellaneous Notes * Telephone Encounter - Norah Healy [place] - 12/11/2024 3:00 PM EST Tc to pt to r/s appt from 01/30/25 as PCP will be in that afternoon. Appt has been scheduled for 01/30/25 at 2:45 pm. documented in this encounter Plan of Treatment Upcoming Encounters Date Type Department Care Team (Late st Contact Info) Description 01/30/2025 2:45 PM EDT Office Visit [facility] MEDICINE [address] [place] [address] Bre Ortega MD [address] [place] [address] documented as of this encounter Goals Goal Patient Goal Type Associated Problems Recent Progress Patient-Stated? Author Blood Pressure < 150/90 Blood Pressure 112/71(2024 11:23 AM EST) No Kenneth Doran, PharmD Note: 77 y.o. female (No Hx DM or CKD) documented as of this encounter Visit Diagnoses Not on filedocumented in this encounter Additional Health Concerns Assessment Noted Time PHQ-9 Depression Total Score: 0 07/30/20 24 8:54 AM EDT documented as of this encounter Care Teams Foreign Diplomat Relationship Specialty Start Date End Date Bre Ortega MD [address] [place] [address] PCP - General Family Medicine 11/17/16 Kenneth Doran, Nash [address] [place] [address] Pharmacist Internal Medicine 12/06/22 documented as of this encounter
--- OUTSIDE RECORDS SUMMARY | 2024-12-31 11:43 | XMS_ITS | Encounter Summary ---
Author Organization [employer] Address [address] [place] [address] 7t [place] [address] Care Team Providers Care Diesel Inspector Name Role Phone Bre Ortega MD Primary Care Provider + Kenneth Doran PharmD Unavailable [phone] Encounter Details Date Type Department Care Team (Late st Contact Info) Description 11/05/2022 Orders Only [facility] MEDICINE [address] [place] [phone] Danielle Acosta RN [address] [place] [address] Social History Tobacco Use Types Packs/Day Years Used Date Smoking Tobacco: Never Assessed Comments Unknown Sex and Gender Information Value Date Recorded Sex Assigned at Female 08/30/2022 10:14 AM EDT Legal Sex Female 10:14 AM EDT Gender Identity Female 08/30/2022 10:14 AM EDT Sexual Orientation Straight 08/30/2022 10 :14 AM EDT documented as of this encounter Plan of Treatment Upcoming Encounters Date Type Department Care Team (Late st Contact Info) Description 01/30/2025 2:45 PM EDT Office Visit [facility] MEDICINE [address] [place] [phone] Bre Ortega MD [address] [place], [place] [phone] documented as of this encounter Procedures Procedure Name Priority Date/Time Associated Diagnosis Comments XR HIP LEFT WITH PELVIS 1 VIEW Routine 11/13/2022 8:57 AM EST XR SHOULDER 2+ VIEWS LEFT Routine 11/13/2022 8:57 AM EST documented in this encounter Results * XR Hip left with Pelvis 1 view (11/13/2022 8:57 AM EST) Anatomical Region Laterality Modality Lower Extremities, Hip Bilateral Radiograp hic Imaging 11/13/2022 8:57 AM EST Narrative 11/16/2022 10:30 AM EST ? [facility] ?[address] ?[place] [address] ?XRay Report ? Signed ? Patient: Jaclyn Lao A ?MR#: [id number] ?? [id number] ? : 1945 ?Acct:[id number] ? Age/Sex: 77 / F ?ADM Date: 11/13/22 ? Loc: HO.XRAY ? Attending Dr: Bre Ortega MD ? Ordering Physician: Bre Ortega MD ?? Date of Service: 11/13/22 ?? Procedure(s): XR hip LT w PEL1V ?? Accession Number(s): [id number] ? cc: Bre Ortega MD ? EXAMINATION: ?? LEFT SHOULDER AND LEFT HIP. ? CLINICAL INFORMATION: ?? Pain. ? COMPARISON: ?? None ? TECHNIQUE: ?? Left shoulder 4 views. Left pelvis 2 views. ? FINDINGS: ?? Left shoulder: 4 views of left shoulder reveal no visible acute ?? fracture or bony abnormality. The soft tissues are normal. ? Left hip: There is no visible fracture, dislocation or subluxation ?? seen. The soft tissues are normal. Is ? XR/XR hip LT w PEL1V ?? IMPRESSION: ?? 1. ??Unremarkable left shoulder exam. ?? 2. ??Unremarkable left hip exam. ? Dictated By: ?Oj Crook MD ? Signed By: ?<Electronically signed by Oj Crook MD in OV> ?11/16/227 ? DD/ 6 ? TD/TT: ? Piece Cutter: MSM ? Procedure Note Brooke, Image - 12/09/2022 [facility] [address] [facility] [place] [address] XRay Report Signed Patient: Jaclyn Lao AMR#: [id number] : 8Acct:[id number] Age/Sex: 77 / FADM Date: 11/13/22 Loc: HO.GABY Attending Dr: Bre Ortega MD Ordering Physician: Bre Ortega MD Date of Service: 11/13/22 Procedure(s): XR hip LT w PEL1V Accession Number(s): [id number] cc: Bre Ortega MD EXAMINATION: LEFT SHOULDER AND LEFT HIP. CLINICAL INFORMATION: Pain. COMPARISON: None TECHNIQUE: Left shoulder 4 views. Left pelvis 2 views. FINDINGS: Left shoulder: 4 views of left shoulder reveal no visible acute fracture or bony abnormality. The soft tissues are normal. Left hip: There is no visible fracture, dislocation or subluxation seen. The soft tissues are normal. Is XR/XR hip LT w PEL1V IMPRESSION: 1. Unremarkable left shoulder exam. 2. Unremarkable left hip exam. Dictated By: Oj Crook MD Signed By: <Electronically signed by Oj Crook MD in OV> 11/16/22 1027 DD/ 0857 TD/TT: Piece Cutter: [facility] External Provider IMG XR PROCEDURES Edited Result - Final * XR Shoulder 2+ Views Left (11/13/2022 8:57 AM EST) Anatomical Region Laterality Modality Upper Extremities, Shoulder Left Radi ographic Imaging 11/13/2022 8:57 AM EST Narrative 11/16/2022 10:30 AM EST ? [facility] ?[address] ?[place] [address] ?XRay Report ? Signed ? Patient: Shilo,Jaclyn A ?MR#: [id number] ?? [id number] ? : 1945 ?Acct:[id number] ? Age/Sex: 77 / F ?ADM Date: 01/14/23 ? Loc: HO.XRAY ? Attending Dr: Bre Ortega MD ? Ordering Physician: Ana Seaman PA-C ?? Date of Service: 11/13/22 ?? Procedure(s): XR shoulder LT min 2V ?? Accession Number(s): [id number] ? cc: Ana Seaman PA-C ? EXAMINATION: ?? LEFT SHOULDER AND LEFT HIP. ? CLINICAL INFORMATION: ?? Pain. ? COMPARISON: ?? None ? TECHNIQUE: ?? Left shoulder 4 views. Left pelvis 2 views. ? FINDINGS: ?? Left shoulder: 4 views of left shoulder reveal no visible acute ?? fracture or bony abnormality. The soft tissues are normal. ? Left hip: There is no visible fracture, dislocation or subluxation ?? seen. The soft tissues are normal. Is ? XR/XR shoulder LT min 2V ?? IMPRESSION: ?? 1. ??Unremarkable left shoulder exam. ?? 2. ??Unremarkable left hip exam. ? Dictated By: ?Oj Crook MD ? Signed By: ?<Electronically signed by Oj Crook MD in OV> ?11/16/22 1027 ? DD/ 0857 ? TD/TT: ? Piece Cutter: MSM ? Procedure Note Brooke, Image - 11/16/2022 [place] [address] XRay Report Signed Patient: Jaclyn Lao AMR#: [id number] : 8Acct:[id number] Age/Sex: 77 / FADM Date: 11/13/22 Loc: JENNY Attending Dr: Bre Ortega MD Ordering Physician: Ana Seaman PA-C Date of Service: 11/13/22 Procedure(s): XR shoulder LT min 2V Accession Number(s): [id number] cc: Ana Seaman PA-C EXAMINATION: LEFT SHOULDER AND LEFT HIP. CLINICAL INFORMATION: Pain. COMPARISON: None TECHNIQUE: Left shoulder 4 views. Left pelvis 2 views. FINDINGS: Left shoulder: 4 views of left shoulder reveal no visible acute fracture or bony abnormality. The soft tissues are normal. Left hip: There is no visible fracture, dislocation or subluxation seen. The soft tissues are normal. Is XR/XR shoulder LT min 2V IMPRESSION: 1. Unremarkable left shoulder exam. 2. Unremarkable left hip exam. Dictated By: Oj Crook MD Signed By: <Electronically signed by Oj Crook MD in OV> 11/16/22 1027 DD/ 0857 TD/TT: Piece Cutter: [facility] External Provider IMG XR PROCEDURES Edited Result - Final documented in this encounter Visit Diagnoses Not on filedocumented in this encounter Care Teams Diesel Inspector Relationship Specialty Start Date End Date Bre Ortega MD [address] [place] [address] PCP - General Family Medicine 11/17/16 Kenneth Doran PharmD [address] [place] [address] Pharmacist Internal Medicine 12/06/22 documented as of this encounter
--- OUTSIDE RECORDS SUMMARY | 2024-12-31 11:43 | XMS_ITS | Encounter Summary ---
Author Organization [employer] Address [address] [facility] 7t [place] [address] Care Team Providers Care Equity Structurer Name Role Phone Bre Orteag MD Primary Care Provider + Kenneth Doran PharmD Unavailable [phone] Encounter Details Date Type Department Care Team ([facility] st Contact Info) Description 08/10/[address] [facility] MEDICINE [address] [place], [place] [phone] Bre Ortega MD [address] [place], [place] [phone] Social History Tobacco Use Types Packs/Day Years Used Date Smoking Tobacco: Every Day Cigarettes Smokeless Tobacco: Never Comments:Patient previously smoked 1/2 pack daily has reduced to 4-5 cigarettes since starting CDTM Alcohol Use Standard Drinks/Week Comments Not Currently 0 (1 standard drink = 0.6 oz pur e alcohol) Housing Stability Answer Date Recorded What is your housing situation today? I have hafsa fernandez 08/10/[address] you li ve. Do you have problems with any of the following? None of the above 08/10/2023 Food Insecurity Answer Date Recorded Within the past 12 months, y ou worried that your food would run out before you got money to buy more: Never True 08/10/2023 Within the past 12 months,th e food you bought just didn't last and you didn't have enough money to get more: Never True 08/2023 Transportation Answer Date Recorded In the past 12 months, has l ack of transportation kept you from medical appts, meetings, work or from getting things needed for daily living? No 08/10/2023 Utilities Answer Date Recorded In the past 12 months, has t he electric, gas, oil or water company threatened to shut off services in your home? No 08/10/2023 Depression Answer Date Recorded Patient Health Questionnaire-2 Score 0 06/16/2023 Comments Unknown Sex and Gender Information Value [...] PM EDT Office Visit [facility] MEDICINE [address] [place], [place] [phone] Bre Ortega MD [address] [place] [phone] documented as of this encounter Goals Goal Patient Goal Type Associated Problems Recent Progress Patient-Stated? Author Blood Pressure < 150/90 Blood Pressure 112/71(2024 11:23 AM EST) No Kenneth Doran, Nash Note: 77 y.o. female (No Hx DM or CKD) documented as of this encounter Visit Diagnoses Not on filedocumented in this encounter Care Teams Equity Structurer Relationship Specialty Start Date End Date Bre Ortega MD [address] [place] [phone] PCP - General Family Medicine 11/17/16 Kenneth Doran, CheD [address] [place] [phone] Pharmacist Internal Medicine 12/06/22 documented as of this encounter
--- OUTSIDE RECORDS SUMMARY | 2024-12-31 11:43 | XMS_ITS | Encounter Summary ---
Author Organization [employer] Address [address] [place] [address] 7t [place] [address] Care Team Providers Care Hide Spreader Name Role Phone Bre Ortega MD Primary Care Provider + Kenneth Doran PharmD Unavailable [phone] Encounter Details Date Type Department Care Team (Late st Contact Info) Description 10/01/2022 Abstract [facility] MEDICINE [address] [place] [address] Nany Devine PharmD [address] [place] [address] Social History Tobacco Use Types Packs/Day Years Used Date Smoking Tobacco: Never Assessed Comments Unknown Sex and Gender Information Value Date Recorded Sex Assigned at Female 08/30/2022 10:14 AM EDT Legal Sex Female 10:14 AM EDT Gender Identity Female 08/30/2022 10:14 AM EDT Sexual Orientation Straight 08/30/2022 10 :14 AM EDT documented as of this encounter Progress Notes * Nany Devine PharmD - 10/01/2022 10:03 AM EST documented in this encounter Plan of Treatment Upcoming Encounters Date Type Department Care Team (Late st Contact Info) Description 01/30/2025 2:45 PM EDT Office Visit [facility] MEDICINE [address] [place] [address] Bre Ortega MD [address] [place], [place] [phone] documented as of this encounter Visit Diagnoses Not on filedocumented in this encounter Care Teams Hide Spreader Relationship Specialty Start Date End Date Bre Ortega MD [address] [place] [address] PCP - General Family Medicine 11/17/16 Kenneth Doran, Nash [address] [place] [phone] Pharmacist Internal Medicine 12/06/22 documented as of this encounter
--- OUTSIDE RECORDS SUMMARY | 2024-12-31 11:43 | XMS_ITS | Encounter Summary ---
Author Organization [employer] Address [address] [place] [address] 7t [place] [address] Care Team Providers Care Manager Facility Name Role Phone Bre Ortega MD Primary Care Provider + Kenneth Doran PharmD Unavailable [phone] Encounter Details Date Type Department Care Team (Late st Contact Info) Description 11/24/2022 Orders Only [facility] PEDS [address] [place], [place] [phone] Nargis Mancini LPN Social History Tobacco Use Types Packs/Day Years [...] Description 01/30/2025 2:45 PM EDT Office Visit [facility] MEDICINE [address] [place] [address] Bre Ortega MD [address] [place], [place] [phone] documented as of this encounter Visit Diagnoses Not on filedocumented in this encounter Care Teams Manager Facility Relationship Specialty Start Date End Date Bre Ortega MD [address] [place] [phone] PCP - General Family Medicine 11/17/16 Kenneth Doran, PharmD [address] [place] [address] Pharmacist Internal Medicine 12/06/22 documented as of this encounter
--- OUTSIDE RECORDS SUMMARY | 2024-12-31 11:44 | XMS_ITS | Encounter Summary ---
Author Organization [employer] Address [address] [place] [address] 7t [place] [address] Care Team Providers Care Welder Pipe Making Name Role Phone Bre Ortega MD Primary Care Provider + Kenneth Doran PharmD Unavailable [phone] Encounter Details Date Type Department Care Team (Late st Contact Info) Description 06/23/2023 Orders Only [facility] MEDICINE [address] [place] [address] [phone] Bre Ortega MD [address] [place] [address] [phone] Social History Tobacco Use Types Packs/Day Years Used Date Smoking Tobacco: Every Day Cigarettes Smokeless Tobacco: Never Comments:Patient previously smoked 1/2 pack daily has reduced to 4-5 cigarettes since starting CDTM Alcohol Use Standard Drinks/Week Comments Not Currently 0 (1 standard drink = 0.6 oz pur e alcohol) Depression Answer Date Recorded Patient Health Questionnaire-2 [...] Office Visit [facility] MEDICINE [address] [place] [phone] Bre Ortega MD [address] [place] [address] [phone] documented as of this encounter Goals Goal Patient Goal Type Associated Problems Recent Progress Patient-Stated? Author Blood Pressure < 150/90 Blood Pressure 112/71(2024 11:23 AM EST) No Kenneth Doran, PharmCaryl Note: 77 y.o. female (No Hx DM or CKD) documented as of this encounter Visit Diagnoses Not on filedocumented in this encounter Care Teams Welder Pipe Making Relationship Specialty Start Date End Date Bre Ortega MD [address] [place] [address] PCP - General Family Medicine 11/17/16 Kenneth Doran, PharmD [address] [place] [address] Pharmacist Internal Medicine 12/06/22 documented as of this encounter
--- OUTSIDE RECORDS SUMMARY | 2024-12-31 11:44 | XMS_ITS | Clinical Summary ---
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 15 g 11 023 Active atorvastatin (Lipitor) 80 MG tabletIndications:Pure hypercholesterolemia TAKE 1 TABLET BY MOUTH AT BEDTIME 90 tablet 3 024 Active cyanocobalamin (Vitamin B-12) 1000 MCG tabletIndications:Neuro pathic pain of ankle, right TAKE 1 TABLET BY MOUTH EVERY MORNING 90 tablet 3 024 Active pantoprazole (Protonix) 20 MG EC tablet TAKE 1 TABLET BY MOUTH BID AC MEALS x 1 mo then 1 TAB PO DAILY AC BREAKFASTX 4M. DO NOT CRUSH, CHEW OR SPLIT. 60 tablet 2 024 Active valsartan (Diovan) 80 MG tablet TAKE 1 TABLET BY MOUTH EVERY DAY IN THE EVENING 30 tablet 5 024 Active nicotine polacrilex (Commit) 2 MG lozenge Dissolve 1 lozenge (2 mg) in the mouth if needed for smoking cessation. 100 lozenge Active gabapentin (Neurontin) 100 MG capsule Take 1 capsule (100 mg) by mouth at bedtime. 90 capsule 024 Active cholecalciferol VITAMIN D (Vitamin D-3) 50 MCG (1999) tablet TAKE 1 TABLET BY MOUTH EVERY DAY 90 tablet 1 025 Active Active Problems Problem Noted Date Diagnosed Date Hair loss 11/29/2024 Assessment & Plan (11/29/2024 1:25 PM EST): It could be physiological by stress or Diovan. Also will check B12 levels. Order labs and FU in 2 months. No evidence of scalp inflammation or other diseases. Memory loss, short term 11/29/2024 Assessment & Plan (11/30/2024 1:31 PM EST): MMSE is normal, , it may be related to anxiety and stress due to situation at home. Advised to quit cigarette smoking. Order labs. FU with me in 2 months. Adjustment disorder with mixed anxiety and depre ssed mood 11/29/2024 Assessment & Plan (11/29/2024 1:26 PM EST): Seems to be working it out well, we discussed about going to WIC or if increased anxiety. She feels safe at home and is able to reach out for safety. Lumbar radiculopathy 10/12/2024 Assessment & Plan (10/12/2024 3:21 PM EST): Pt has worsening lower back pain, will refer to PT. Advised stretching exercises at home + Diclofenac gel. Take Tylenol PRN only, will try to avoid narcotics due to significant GI symptoms at this time. 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 Refer to PT. FU with me as scheduled. 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 May need yearly FU. Advised to quit smoking, continue Atorvastatin and BP medications. 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 Advised to r/s appointment with GI to FU gastritis and esophagitis. Pap smear, mammogram, and colonoscopy are all UTD. Will request result of last low dose chest CT scan for lung cancer screening from pulmonology. Assessment & Plan (10/12/2024 12:41 PM EST): Significantly improving, probably related to Gastritis. Advised to quit smoking. Discussed re weight reduction options including exercise, life style modifications, and diet. Recommended to decrease soda and sugary beverage consumption, increase protein intake with meals (at least 1 portion of protein with each meal) to assist with satiety, increase dietary fiber Recommended at least 150 min/week of moderate intensity exercise. Assessment & Plan (07/30/2024 12:12 PM EDT): Improving, she gained few more lb since last appt. It was likely related to gastritis? Smoking? Advised to quit smoking. Complete PPI x 2mo Continue monitoring weight, if it drips again, will refer back to GI to fu on gastritis. CT scan abd/pelvis is pending. Assessment & Plan (05/29/2024 10:44 AM EDT): Neg malignancy w/u so far, LDCT scan screen for lung ca results are pending. It could be related to H.Pilory gastritis? Order H.Pilory titers, hemoccult and rx if needed. Order abd/pelvis CT scan Fu in 6-8w Assessment & Plan (03/21/2024 10:56 AM EDT): - r/o malignancy, order CT of the lungs. 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 Assessment & Plan (07/20/2023 9:57 AM EDT): Will start gabapentin 300mg at bedtime and fu in TV Continue b12 supplementation. Recommended acupuncture and wear ankle brace prn pain Assessment & Plan (06/16/2023 11:04 AM EDT): Start B12 empirically d/t h/o B12 deficiency -FU B12 labs -FU w/ me in 4 weeks Acute right ankle pain 06/16/2023 Assessment & Plan (06/16/2023 11:04 AM EDT): R/o ankle fx, pt has osteoporosis, vs neuropathy -order XR and labs -Rx for ankle brace -refer to PT Pure hypercholesterolemia 06/16/2023 Right leg pain 12/06/2022 Dizziness on standing 12/06/2022 Chronic left shoulder pain 12/06/2022 Gastroesophageal reflux dise ase with esophagitis without hemorrhage 12/05/2022 Overview (12/05/2022): EGD on 08/12/22 at [facility] Assessment & Plan (10/12/2024 2:23 PM EST): Advised to quit smoking, I lowered nicotine lozenges to 2 mg. We discussed about acupuncture, prescription for Wellbutrin, but she declined any of this at this time. Pt advised to reschedule appointment with GI. Assessment & Plan (07/30/2024 12:09 PM EDT): Improved on PPI, complete Protonix 40mg/d x 1 mo, then cut downs to 20mg x 4 more months. Advised to quit smoking We'll order b12 levels in 1y Assessment & Plan (05/29/2024 10:42 AM EDT): Unclear if she's symptomatic from this vs gastritis. Restart Pantoprazole x 2m and fu with me in 6-8w Essential hypertension 12/01/2022 Assessment & Plan (03/21/2024 10:18 AM EDT): Controlled. Compliant w/meds Continue Valsartan same dose Counseled re low salt diet/increase moderate physical activity. Check home BP BIW and prn CP/HUDSON/AHMADI Non smoking patient. Assessment & Plan (07/20/2023 9:59 AM EDT): Repeated at end of visit is 140/80 Continue valsartan 80mg, tolerates well. Counseled re low salt diet/increase moderate physical activity. Check home BP BIW and prn CP/HUDSON/AHMADI Counseled to quit smoking Hip pain 12/01/2022 Seborrheic dermatitis 12/01/2022 Senile osteoporosis 05/12/2018 Smoker 05/12/2018 Assessment & Plan (10/12/2024 2:20 PM EST): See above. Assessment & Plan (07/30/2024 12:11 PM EDT): Advised to cutdown smoking,, she declines rx nicotine patch or gum at this time. I gave her info re acupuncture rx to quit smoking Low dose CT scan lungs for lung ca screen arranged through pulmonary office [facility] Assessment & Plan (03/21/2024 3:22 PM EDT): - she has 50+ pack year smoking history - currently 5 cigarettes per day for the past 5 years - order lung cancer screening - encouraged her to continue cutting down on smoking Assessment & Plan (06/16/2023 11:05 AM EDT): Counseled to quit smoking Tubular adenoma of colon 05/12/2018 Overview (12/05/2022): Colonoscopy 08/12/22: TA w/atypia Venous insufficiency of leg 05/12/2018 Impaired fasting glucose 04/19/2014 Assessment & Plan (06/16/2023 11:05 AM EDT): Controlled. A1c is at goal. Counseled re more frequent low calorie/carb meals. Encouraged physical activity as tolerated. FU in 4 weeks. Carpal tunnel syndrome 04/06/2013 Chronic obstructive lung disease 04/06/2013 Assessment & Plan (03/21/2024 10:17 AM EDT): - seems to be doing well, uses Albuterol occasionally and is not smoking - continue Albuterol PRN only Assessment & Plan (07/20/2023 9:58 AM EDT): Controlled, counseled to quit smoking Declined Influenza vax, counseled to get Coivd booster in 1-2w when available Continue Xopenex prn Assessment & Plan (06/16/2023 11:03 AM EDT): Seems to be controlled, although she does not tolerate albuterol Rx for xopenex inhaler Counseled to quit smoking Cobalamin deficiency 04/06/2013 Assessment & Plan (06/16/2023 11:05 AM EDT): Check labs Depressive disorder 04/06/2013 Hyperlipidemia 04/06/2013 Osteoporosis 04/06/2013 Gastroesophageal reflux disease 04/06/2013 Encounters Date Type Department Care Team Description 12/11/2024 Telephone [facility] [address] [place] [phone] Bre Ortega MD Appointment Request 11/29/2024 11:30 AM EST Office Visit [facility] [address] [place] [address] Bre Ortega MD Weight loss (Primary Dx); Hair loss; Memory loss, short term; Adjustment disorder with mixed anxiety and depressed mood 11/29/2024 Travel 11/29/2024 Refill [facility] [address] [place] [address] Bre Ortega MD 11/21/2024 Patient Outreach [facility] [address] [place] [address] Bre Ortega MD Pre-visit Planning (SDOH negative, Tobacco screening negative. ) 10/22/2024 Telephone [facility] [address] [place] [address] Bre Ortega MD 10/19/2024 Telephone [facility] [address] [place] [phone] Bre Ortega MD 10/12/2024 12:15 PM EST Office Visit [facility] [address] [place] [phone] Bre Ortega MD Lumbar radiculopathy (Primary Dx); Weight loss; Gastroesophageal reflux disease with esophagitis without hemorrhage; Smoker; Juxtarenal abdominal aortic aneurysm (AAA) without rupture ([facility]) 10/12/2024 Travel 10/08/2024 Telephone [facility] [address] [place] [address] Alisson Garay, DONAL Appt r/s 10/04/2024 9:00 AM EST Office Visit [facility] [address] [place], [place] [phone] Aura Sanchez, OD Open angle with borderline glaucoma findings, bilateral (Primary Dx) 10/04/2024 Travel from Last 3 Months Immunizations Name Administration Dates Next Due Pfizer Covid-19 Vaccine 12+ 07/24/2024, Pfizer Covid-19 Vaccine 12+ madison-sucrose (Newsome C ap) 01/19/2022 Pneumococcal Conjugate PCV 13 05/29/2015 Pneumococcal Polysaccharide PPSV23 04/16/2014 Td (adult), 5 Lf tetanus tox oid, preservative free, adsorbed 05/10/2013 Tdap 07/17/2024,04/16/2014 Zoster, Recombinant 06/22/2022,04/13/2022 Zoster, live 04/16/2014 Social History Tobacco Use Types Packs/Day Years Used Date Smoking Tobacco: Every Day Cigarettes Smokeless Tobacco: Never Tobacco Cessation:Ready to Q uit: Not Asked; Counseling Given: Not Answered Comments:Patient previously smoked 1/2 pack daily has reduced to 3-4 cigarettes since starting CDTM. Hx smoking 1ppd for 50y, quit on 2019 Alcohol Use Standard Drinks/Week Comments Not Currently [...] Orientation Straight 08/30/2022 10 :14 AM EDT Last Filed Vital Signs Vital Sign Reading Time Taken Comments Blood Pressure 112/71 11/29/2024 11:23 AM EST Pulse 75 11/29/2024 11:23 AM EST Temperature 35.6 ??C (96.1 ??F) 11/29/2024 11:[address] Respiratory Rate 20 11/29/2024 11:23 AM EST Oxygen Saturation 96% 11/29/2024 11:23 AM EST Inhaled Oxygen Concentration - - Weight 56 kg (123 lb 8 oz) 11/29/2024 11:[address] Height 149.9 cm (4' 11 ) 11/29/2024 11:23 AM EST Body Mass Index 24.94 11/29/2024 11:23 AM EST Plan of Treatment Upcoming Encounters Date Type Department Care Team (Late st Contact Info) Description 01/30/2025 2:45 PM EDT Office Visit [facility] [address] [place], [place] [phone] Bre Ortega MD [address] [place] [address] Health Maintenance Due Date Last Done Comments Alcohol/Substance Use Screening 1959 Hepatitis C Screening 1965 Hepatitis A Vaccines (1 of 2 - Risk 2-dose series) 1966 RSV Patients and Patients Aged 60 years or older (1 - 1-dose 75+ series) 2022 Influenza Vaccine (#1) 2024 Mammogram 02/13/2025 02/14/2024, 01/29, 02/08/2023, Additional history exists Depression Screening 07/30/2025 07/30/2024, 07/30/20 24 SDOH Screening 11/21/2025 11/21/2024 Tobacco Screening 11/29/2025 11/29/2024 Lipid Panel 05/02/2029 05/02/2024, 12/01, 12/07/2021 DTaP/Tdap/Td Vaccines (3 - Td or Tdap) 07/17/2034 07/17/2024, 04/16/2014, 05/10/2013 Pneumococcal Vaccine: 50+ Years Completed 05/29/2015, 04/16/2014 Zoster Vaccines Completed 06/22/2022, 03/31, 04/16/2014 COVID-19 Vaccine Completed 07/24/2024, , 01/19/2022 HIB Vaccines Aged Out No longer eligi ble based on patient's age to complete this topic HPV Vaccines Aged Out No longer eligi ble based on patient's age to complete this topic Hepatitis B Vaccines Aged Out No long er eligible based on patient's age to complete this topic IPV Vaccines Aged Out No longer eligi ble based on patient's age to complete this topic Meningococcal Vaccine Aged Out No pete kajal eligible based on patient's age to complete this topic RSV under 20 months Aged Out No longe r eligible based on patient's age to complete this topic Rotavirus Vaccines Aged Out No longer eligible based on patient's age to complete this topic Goals Goal Patient Goal Type Associated Problems Recent Progress Patient-Stated? Author Blood Pressure < 150/90 Blood Pressure 112/71(2024 11:23 AM EST) No Kenneth Doran, PharmD Note: 77 y.o. female (No Hx DM or CKD) Procedures Procedure Name Priority Date/Time Associated Diagnosis Comments AUTOMATED VISUAL FIELD, EXTENDED - OU - BOTH EYES Routine 10/04/2024 9:00 AM EST Open angle with borderline glaucoma findings, bilateral LIPID PANEL, STANDARD Routine 05/02/2024 9:13 AM EDT BI MAMMOGRAM SCREENING TOMOSYNTHESIS BILATERAL Routine 02/14/2024 8:30 AM EDT from Last 3 Months or Most Recently Relevant to Health Maintenance Results * Automated Visual Field, Extended - OU - Both Eyes (10/04/2024 9:00 AM EST) Aura Jenkins, OD - 10/09/2024 9:24 AM EST VISUAL FIELD INTERPRETATION Visual Field Interpretation Reason for testing: POAG suspect OU Reliability Indices: False positive errors OD: 0/7 OS: 0/7 False negative errors OD: 0/7 OS: 0/8 Reliability: OD: Reliable ??OS: Reliable Statistical Indices: MD: OD: 6.5 OS: 7.4 PSD: OD: 2.7 OS: 2.6 Impression: Overall significant reduction in sensitivity both eyes (OU) (MD increased from 1.6 to 6.5 right eye (OD) and 2.9 to 7.4 OS). No structure/function correlation present. Right eye (OD): Overall reduction does not correspond to reduction in acuity or dense media opacity. Left eye (OS): Corrected acuity today 20/70 but PH to 20/25 - consider re-refraction before repeating next field RTC in 4 months. us Aurajaden Sanchez OD OPHTH VISUAL FIELD Edited Resul t - Final * Lipid Panel, Standard (05/02/2024 9:13 AM EDT) Triglycerides 87 <150 mg/dL [facility] Comment:Desirable Triglyceri de: less than 150 mg/dLBorderline High Triglyceride 150-199 mg/dLHigh Triglyceride: 200-499 mg/dLVery High Triglyceride: greater than or equal to 5OO mg/dL Cholesterol 123 <200 mg/dL [facility] Comment:Desirable Cholestero l: less than 200 mg/dLBorderline High Cholesterol: 200-239 mg/dLHigh Cholesterol: greater than 239 mg/dL LDL Cholesterol Calculated 60 <100 mg/dL [facility] Comment:Desirable LDL: less than 100 mg/dLNear Optimal/Above Optimal LDL: 110- 129 mg/dLBorderline High LDL: 130-159 mg/dLHigh LDL: 160-189 mg/dLVery High LDL: greater than or equal to 190 mg/dL HDL Cholesterol 46 >40 mg/dL [facility] Comment:Desirable HDL: great er than 40 mg/dL Note: This HDL assay may give artificially low results in patients with liver disease. 05/02/2024 9:13 AM EDT 05/02/2024 1:14 PM EDT us Bre Ortega MD LAB BLOOD ORDERABLES Fin al Result [facility] [address] [facility] [place] [phone] * BI Mammogram Screening Tomosynthesis Bilateral (02/14/2024 8:30 AM EDT) Anatomical Region Laterality Modality Breast Bilateral Mammography 02/14/2024 8:30 AM EDT Narrative 02/14/2024 11:31 AM EDT ? [facility] [place] ? [address] ?[place] [id number] ? Mammography Report ? Signed ? Patient: Shilo,Jaclyn A ?MR#: [id number] ?? [id number] ? : 1945 ?Acct:[id number] ? Age/Sex: 78 / F ?ADM Date: 02/14/24 ? Loc: HO.MAMMO ? Attending Dr: Bre Ortega MD ? Ordering Physician: Bre Ortega MD ?Results: 0In ?? complete: Needs Additional Imaging Evaluation ? Date of Service: 02/14/24 ?Follow Up: Additional Imagi ?? ng ? Procedure(s): MM tomosynthesis screening BI ?? Accession Number(s): [id number] ? cc: Bre Ortega MD ? EXAMINATION: ?? MM SCREENING DIGITAL BREAST TOMOSYNTHESIS, BILATERAL ? CLINICAL INFORMATION: ? Screening. Asymptomatic. ? COMPARISON: ?? Mammography: This study is compared with prior exams dating back to ?? 2018. ? TECHNIQUE: ?? Digital breast tomosynthesis is performed in both the craniocaudal and ?? mediolateral oblique views along with computer-aided detection (CAD). ?? Synthesized 2D images are generated from the tomosynthesis. ? FINDINGS: ?? There are scattered areas of fibroglandular density (ACR BI-RADS breast ?? composition Category b). ? In the upper outer quadrant of the right breast, at a middle depth, ?? there is a focal asymmetry which warrants additional mammographic and ?? targeted sonographic evaluation. ? In the left breast, there are no significant masses, abnormal ?? calcifications, or other abnormalities. ? MM/MM tomosynthesis screening BI ?? IMPRESSION: ?? Focal asymmetry of the right breast warrants additional mammographic ?? and targeted sonographic imaging. ? No mammographic signs of malignancy left breast. ? ASSESSMENT: ? BI-RADS BI-RADS 0 - Incomplete: Needs additional Imaging. ? RECOMMENDATION: ?? 1. Additional views of the right breast. ?? 2. Targeted ultrasound if warranted after review of the additional ?? views. ?? 3. Radiology department staff will contact the patient for additional ?? imaging. ? Additional Imaging required ? This examination should not preclude the clinical evaluation of a ?? suspicious palpable abnormality. ? This patient's information was entered into a reminder system with a ?? target due date for their next mammogram. ? Dictated By: ?Loreto Thomas MD ? Signed By: ?<Electronically signed by Loreto Thomas MD in OV> ? 02/14/24 1127 ? DD/ 0830 ? TD/TT: ? Assignment Clerk: ? Procedure Note Jody Cox - 02/14/2024 [facility] [address] [place] [address] Dr. [place], [place] [address] Mammography Report Signed Patient: Jaclyn Lao AMR#: [id number] : 8Acct:[id number] Age/Sex: 78 / FADM Date: 02/14/24 Loc: HO.MAMMO Attending Dr: Bre Ortega MD Ordering Physician: Bre Ortega MDResults: 0In complete: Needs Additional Imaging Evaluation Date of Service: 02/14/24Follow Up: Additional Imagi ng Procedure(s): MM tomosynthesis screening BI Accession Number(s): [id number] cc: Bre Ortega MD EXAMINATION: MM SCREENING DIGITAL BREAST TOMOSYNTHESIS, BILATERAL CLINICAL INFORMATION: Screening. Asymptomatic. COMPARISON: Mammography: This study is compared with prior exams dating back to 2019. TECHNIQUE: Digital breast tomosynthesis is performed in both the craniocaudal and mediolateral oblique views along with computer-aided detection (CAD). Synthesized 2D images are generated from the tomosynthesis. FINDINGS: There are scattered areas of fibroglandular density (ACR BI-RADS breast composition Category b). In the upper outer quadrant of the right breast, at a middle depth, there is a focal asymmetry which warrants additional mammographic and targeted sonographic evaluation. In the left breast, there are no significant masses, abnormal calcifications, or other abnormalities. MM/MM tomosynthesis screening BI IMPRESSION: Focal asymmetry of the right breast warrants additional mammographic and targeted sonographic imaging. No mammographic signs of malignancy left breast. ASSESSMENT: BI-RADS BI-RADS 0 - Incomplete: Needs additional Imaging. RECOMMENDATION: 1. Additional views of the right breast. 2. Targeted ultrasound if warranted after review of the additional views. 3. Radiology department staff will contact the patient for additional imaging. Additional Imaging required This examination should not preclude the clinical evaluation of a suspicious palpable abnormality. This patient's information was entered into a reminder system with a target due date for their next mammogram. Dictated By: Loreto Thomas MD Signed By: <Electronically signed by Loreto Thomas MD in OV> 02/14/24 1127 DD/ 0830 TD/TT: Assignment Clerk: Bre Ortega MD IMG BI PROCEDURES Final Result from Last 3 Months or Most Recently Relevant to Health Maintenance [place] [address] [place] [address] - [employer] Care Teams Box Blank Machine Operator Relationship Specialty Start Date End Date Bre Ortega MD [address] [place] [address] PCP - General Family Medicine 11/17/16 Kenneth Doran, Nash [address], [place] Pharmacist Internal Medicine 12/06/22
--- OUTSIDE RECORDS SUMMARY | 2024-12-31 11:44 | XMS_ITS | Encounter Summary ---
Author Organization [employer] Address [address] [place] [address] [address] [place] [address] Care Team Providers Care Enrober Name Role Phone Bre Ortega MD Primary Care Provider + Kenneth Doran PharmD Unavailable [phone] Reason for Visit * Reason Comments Med Refill Encounter Details Date Type Department Care Team (Late st Contact Info) Description 06/18/2023 Refill [facility] [address] [place] [address] Leonor Heredia MD [address] [place], [place] [phone] Seborrheic dermatitis Social History Tobacco Use Types Packs/Day Years [...] Description 01/30/2025 2:45 PM EDT Office Visit [facility] [address] [place] [address] Bre Ortega MD [address] [place] [phone] documented as of this encounter Goals Goal Patient Goal Type Associated Problems Recent Progress Patient-Stated? Author Blood Pressure < 150/90 Blood Pressure 112/71(2024 11:23 AM EST) No Kenneth Doran, CheD Note: 77 y.o. female (No Hx DM or CKD) documented as of this encounter Visit Diagnoses Diagnosis Seborrheic dermatitis Unspecified seborrheic dermatitis documented in this encounter Care Teams Enrober Relationship Specialty Start Date End Date Bre Ortega MD [address] [place] [phone] PCP - General Family Medicine 11/17/16 Kenneth Doran, PharmD [address] [place] [phone] Pharmacist Internal Medicine 12/06/22 documented as of this encounter
--- OUTSIDE RECORDS SUMMARY | 2024-12-31 11:44 | XMS_ITS | Encounter Summary ---
Author Organization [employer] Address [address] [place] [address] 7[address] [place] [address] Care Team Providers Care A P Supervisor Name Role Phone Bre Ortega MD Primary Care Provider + Kenneth Doran PharmD Unavailable [phone] Reason for Referral * Consultation (Routine) - Closed Specialty Diagnoses / Procedures Referred By Contac t Referred To Contact Cardiology Diagnoses Infrarenal abdominal aortic aneurysm (AAA) without rupture (CMS/HCC) Bre Ortega MD [address] [place] [address] Phone: tel: fax: [facility] Referral ID Status Reason Start Date Expiration Date V isits Requested Visits Authorized [id number] Closed Specialty Services Required 09/20/2024 09/20/2025 1 1 Encounter Details Date Type Department Care Team (Late st Contact Info) Description 09/20/2024 Orders Only [facility] MED[facility] [address] [place], [place] [phone] Bre Ortega MD [address] [place], [place] [phone] Infrarenal abdominal aortic aneurysm (AAA) without rupture (CMS/HCC) (Primary Dx) Social History Tobacco Use Types Packs/Day Years [...] Recorded Patient Health Questionnaire-2 Score 0 07/30/2024 Comments Unknown Sex and Gender Information Value [...] Description 01/30/2025 2:45 PM EDT Office Visit [facility] [address] [place] [address] Bre Ortega MD [address] [place] [address] Scheduled Referrals Name Type Priority Associated Diagnoses Order Schedule Referral to Cardiology Outpatient Referral Routine Infrarenal abdominal aortic aneurysm (AAA) without rupture (CMS/HCC) Expected: 09/20/2024 (Approximate), Expires: 09/20/2025 documented as of this encounter Goals Goal Patient Goal Type Associated Problems Recent Progress Patient-Stated? Author Blood Pressure < 150/90 Blood Pressure 112/71(2024 11:23 AM EST) Kenneth Liriano, Nash Note: 77 y.o. female (No Hx DM or CKD) documented as of this encounter Visit Diagnoses Diagnosis Infrarenal abdominal aortic aneurysm (AAA) without rupture (CMS/HCC)- Primary documented in this encounter Additional Health Concerns Assessment Noted Time PHQ-9 Depression Total Score: 0 07/30/20 24 8:54 AM EDT documented as of this encounter Care Teams A P Supervisor Relationship Specialty Start Date End Date Bre Ortega MD [address] [place] [address] PCP - General Family Medicine 11/17/16 Kenneth Doran, Nash [address] [place] [phone] Pharmacist Internal Medicine 12/06/22 documented as of this encounter
[2024-12-31 12:20] LABS: Syphilis Screen Nonreactive (Nonreactive)
[2024-12-31 12:36] LABS: Folate 7.6 ng/mL (> or = 4.0); Vitamin B12 1923 pg/mL (200-900)
[2024-12-31 12:53] LABS: Alanine Aminotransferase 26 U/L (0-31); Albumin Level 3.9 g/dL (3.5-5.0); Alkaline Phosphatase 64 U/L (39-117); Aspartate Amino Transferase 38 U/L (5-31); Bilirubin Direct 0.2 mg/dL (0.0-0.5); Bilirubin Total 0.7 mg/dL (0.0-1.0); Cholesterol 121 mg/dL (<200); Ferritin 132 ng/mL (10-250); HDL Cholesterol 42 mg/dL (>40); LDL Cholesterol Calculated 59 mg/dL (<100); TSH reflex Free T4 1.07 uIU/mL (0.32-4.0); Total Protein 7.3 g/dL (6.5-8.0); Triglycerides 101 mg/dL (<150); Vitamin D 25-OH Total 45.9 ng/mL (>30)
[2024-12-31 13:06] LABS: Reflex LDLD? No
[2025-01-03 12:18] LABS: Anti Nuclear Antibody Screen NEGATIVE (NEGATIVE)
== END 2024-12-31 10:13 | disposition home or self-care (01) ==
LOC: HO.HHCL 10:12
PROVIDERS: Visit Provider Internal Medicine
DX: L65.9 Nonscarring hair loss, unspecified (principal); R10.13 Epigastric pain; R63.4 Abnormal weight loss; R41.3 Other amnesia; Z13.6 Encounter for screening for cardiovascular disorders
CPT/HCPCS: 36415; 80061; 80076; 82306; 82607; 82728; 82746; 84443; 86038; 86780

== ENCOUNTER 2025-03-19 13:18 | Emergency (ER) | payer OTHER, SELFPAY ==
--- NOTE | ~2025-03-19 | XR_ITS ---
EXAMINATION: XR KNEE, LEFT CLINICAL INFORMATION: left knee pain COMPARISON: None available. TECHNIQUE: Four views of the left knee. FINDINGS: No fracture or joint effusion. Alignment is anatomic. Joint spaces are maintained. No abnormal soft tissue calcification. There are vascular calcifications in the soft tissues. XR/XR knee LT 4V IMPRESSION: No acute abnormality of the left knee. Electronically signed by: Terry Joaquin MD 03/19/2025 02:45 PM EDT
--- NOTE | ~2025-03-19 | CT_ITS ---
EXAMINATION: CT ANGIOGRAM HEAD AND NECK CLINICAL INFORMATION: Headache and syncope. 79-year-old female. COMPARISON: None available. TECHNIQUE: Noncontrast axial imaging of the head was performed. This was followed by test bolus sequences and head and neck intravenous bolus administration 70 mL of Omnipaque 350. Helical imaging was performed in the axial plane from the aortic arch to the skull vertex. The data was processed at the medical technologist generalist's workstation for generation of MIP sequences. Angled MIPs and volume rendered reformatted images were also generated at an offline 3D workstation. Stenoses are assessed in accordance with NASCET criteria unless otherwise indicated. This CT examination was performed using dose optimization techniques as appropriate, variously including the following: *Automated exposure control *Adjustment of mA and/or kV according to patient size (this includes techniques or standardized protocols for targeted exams where dose is matched to indication/reason for exam; i.e. extremities or head) *Use of iterative reconstruction technique FINDINGS: NONCONTRAST HEAD CT: There is no evidence of intracranial hemorrhage or extra-axial fluid collection. There is no mass effect, or edema. No CT evidence of acute territorial infarct. Ventricles, sulci, and cisterns are normal in size and configuration for patient age. No hydrocephalus. No midline shift. Moderate supratentorial white matter hypodensities in keeping with small vessel ischemic changes. There is encephalomalacia present within the anterior body of the corpus callosum. 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 Empty sella noted. Globes and orbital contents image normally. There are bilateral lens replacements. No extracranial soft tissue abnormalities. The paranasal sinuses, mastoid air cells, and tympanic cavities are normally aerated. No suspicious bony abnormalities. NECK CTA: -AORTIC ARCH: Normal in caliber. Moderate atheromatous calcification. Three-vessel branching pattern. -GREAT VESSEL ORIGINS: Occlusion of the left subclavian artery at the level of the thoracic inlet. Probable reversed flow within the left vertebral artery. Reconstitution of the more distal artery at the level of the left vertebral artery ostium. (Left Subclavian steal). -RIGHT COMMON CAROTID ARTERY: Normal in course and caliber to the level of the bifurcation. Scattered atheromatous calcified plaque. -CERVICAL RIGHT INTERNAL CAROTID ARTERY: Calcific atherosclerotic disease of the carotid bulb and proximal internal carotid artery causing less than 50% stenosis. -LEFT COMMON CAROTID ARTERY: Normal in course and caliber to the level of the bifurcation. Scattered atheromatous calcified plaque. -CERVICAL LEFT INTERNAL CAROTID ARTERY: Mild calcific atherosclerotic disease of the carotid bulb and proximal internal carotid artery without flow-limiting stenosis. -CERVICAL RIGHT VERTEBRAL ARTERY: Codominant. Normal in course and caliber into the skull base. -CERVICAL LEFT VERTEBRAL ARTERY: Codominant. Moderate V1 segment short segment stenosis, approximately 50%. Normal in course and caliber into the skull base. OTHER, SOFT TISSUES: -No lymphadenopathy or mass. No abnormal fluid collection or soft tissue swelling. -Normal thyroid. -Imaged superior mediastinal structures normal. -Imaged lung apices clear. Moderate centrilobular emphysema with biapical scarring. CTA OF THE BRAIN: -INTRACRANIAL INTERNAL CAROTID ARTERIES: Calcific atherosclerotic disease of the intracranial internal carotid arteries without occlusion or flow-limiting stenosis. -RIGHT ANTERIOR CEREBRAL ARTERY: Normal A1 segment.. Normal arborization of the distal segments. -LEFT ANTERIOR CEREBRAL ARTERY: The A1 segment is diminutive. Normal arborization of the distal segments. -ANTERIOR COMMUNICATING ARTERY: Normal. -RIGHT MIDDLE CEREBRAL ARTERY: Normal M1 segment of the MCA without focal stenosis or occlusion. Normal arborization of the distal segments. -LEFT MIDDLE CEREBRAL ARTERY: Normal M1 segment of the MCA without focal stenosis or occlusion. Normal arborization of the distal segments. -RIGHT VERTEBRAL ARTERY V4: Normal in course and caliber. -LEFT VERTEBRAL ARTERY V4: Normal in course and caliber. -BASILAR ARTERY: Normal without focal stenosis or occlusion. Normal appearance of the proximal superior cerebellar arteries. Normal basilar tip. -RIGHT POSTERIOR CEREBRAL ARTERY: Normal P1 segment. Normal opacification of the distal CHEMICAL STRENGTH TESTER segments. -LEFT POSTERIOR CEREBRAL ARTERY: Normal P1 segment. Normal opacification of the distal CHEMICAL STRENGTH TESTER segments. -POSTERIOR COMMUNICATING ARTERIES: The left is normal. The right is not well seen. Normal opacification of the superior sagittal, straight, transverse, and sigmoid sinuses. No venous thrombosis. No space-occupying hemorrhage or definite evolving infarct. CT/CT angio head neck IMPRESSION: NONCONTRAST HEAD CT: 1. No acute intracranial abnormality. 2. Moderate small vessel ischemic changes. 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 CTA NECK: 1. Occlusion of the left subclavian artery at the level of the thoracic inlet, with probable left subclavian steal reconstituting the more distal artery in the subclavian region. 2. Left vertebral artery V1 segment short segment 50% stenosis. 3. Approximate 40% short segment stenosis of the right ICA after the origin due to irregular calcific plaque. 4. No evidence of left carotid stenosis. 5. No evidence of right vertebral artery stenosis. CTA HEAD: 1. No evidence of large vessel occlusion, high-grade stenosis, dissection, or aneurysm within the intracranial arterial circulation. 2. Patent cortical and dural venous sinuses. 3. No space-occupying hemorrhage or definite evolving ischemic infarct. Electronically signed by: Terry Joaquin MD 03/19/2025 03:41 PM EDT
--- NOTE | 2025-03-19 13:28 | ECG_ITS ---
Test Reason : SYNCOPE Blood Pressure : */* mmHG Vent. Rate : 59 BPM Atrial Rate : 59 BPM P-R Int : 154 ms QRS Dur : 84 ms QT Int : 432 ms P-R-T Axes : 60 30 17 degrees QTcB Int : 427 ms Sinus bradycardia Otherwise normal ECG When compared with ECG of 26-Mar-2024 15:08, No significant change was found Referred By: Juan Parry Electronically Signed By: Gianluca Mauro
[2025-03-19 13:31] VITALS: BP 103/44; PULSE 67; RESP 14; TEMP 36.6; O2SAT 96; BMI 25.2
--- NOTE | 2025-03-19 13:45 | ED.GENADULT ---
HPI - General Adult General Chief complaint: Fall Stated complaint: SYNCOPE W/FALL,KNEE PAIN,88/58,+DESI,-THINNER,-LOC Time Seen by Provider: 03/19/25 13:27 Source: patient Mode of arrival: ambulatory Limitations: language barrier History of Present Illness HPI narrative: This is a 79-year-old woman with a past medical history of hypertension, asthma, Panda esophagus, osteoporosis who presents via EMS for evaluation after a fall. History obtained with cardiac exercise specialist. Patient states that she was at the [place] with her daughter and had a frontal headache. She states she subsequently fell onto her knees. She reports having pain in her left knee. She states that she did not have loss of consciousness. She states no longer having a headache. She states no associated chest pain, dyspnea, back pain, abdominal pain, nausea or vomiting. She states that she did not hit her head. She states no left hip, thigh, leg or ankle pain. She states no headache at this time. She states no neck pain. She states no extremity paresthesias. She states taking no blood thinning medications. She reports feeling much better at this time. She states no GI or symptoms otherwise. She states no recent fevers. Related Data Previous Rx's ?Medication ?Instructions ?Recorded acetaminophen 500 mg tablet 1,000 mg (2 x 500 mg) PO QID PRN 05/23/21 pain #30 tabs cyclobenzaprine 5 mg tablet 5 mg PO TID PRN muscle spasm #14 05/23/21 tabs lidocaine 5 % topical patch 1 patch topical DAILY PRN Back 05/23/21 pain #15 ea sennosides 8.6 mg tablet (Natural 8.6 mg PO BID constipation #180 11/26/22 Senna Laxative) tabs pantoprazole 40 mg tablet,delayed 40 mg PO DAILY #20 tabs 03/26/24 release (Protonix) Allergies Allergy/AdvReac Type Severity Reaction Status Date / Time No Known Allergies Allergy Mild NONE Verified 03/19/25 13:39 Review of Systems Review of Systems: ROS as per HPI [facility] Past Medical History Medical History (Updated 03/19/25 @ 15:15 by Juan Parry MD) Hypertension Hyperlipidemia Asthma Nicotine dependence, cigarettes, uncomplicated Osteoporosis Panda esophagus Esophagitis Gastritis Diverticulosis Chronic idiopathic constipation Tubular adenoma Surgical History (System 11/02/24 @ 13:19 by Maia Esqueda) History of colonoscopy History of esophagogastroduodenoscopy (EGD) Family History Family History Mother Diabetes Father No problems noted. Social History Social History (System 11/02/24 @ 13:19 by Maia Esqueda) Alcohol intake: never Comment: mediated with eye drops and eye ointment for eye pain, much improved now Patient Tobacco Use Status: Current everyday Tobacco user Tobacco use type: Cigarette Cigarettes Per Day: 5 Years Smoked: (onset 17yo, 1ppd x 63yrs, now 1/4ppd - 50+PYH) Advance Directives: No Advance Directives Information Provided: No Physical Exam ED Vital Signs: Vital Signs - 24 hr 03/19/25 13:31 Temperature 97.8 F Pulse Rate 67 Respiratory Rate 14 Blood Pressure 103/44 L Pulse Oximetry 96 Oxygen Delivery Method Room Air BMI result Body Mass Index 25.2 Gen: NAD, AOx3 HEENT: NCAT, EOMI, normal conjunctiva CV: RRR Pulm: CTAB, no increased work of breathing GI: Soft, NTND, no rebound, guarding or rigidity MSK: No midline vertebral tenderness to palpation, full active range of motion with neck flexion/extension and lateral 45 degree rotation, no chest wall tenderness to palpation, no extremity deformity, no tenderness to palpation to the pelvis or pelvic instability, no tenderness palpation to the left thigh/leg/ankle, mild left knee contusion/ecchymosis, no laxity to the left knee with valgus/varus and anterior/posterior stress, intact active range motion of the left knee with flexion/extension albeit mildly limited left knee flexion, bilateral lower extremity compartments are soft Neuro: CN 2-12 grossly intact, sensation intact to light touch in bilateral upper and lower extremities, 5/5 bilateral upper and lower extremity strength Medications Administered Discontinued Medications Generic Name Dose Route Start Last Admin Trade Name Freq PRN Reason Stop Dose Admin Sodium Chloride 1,000 mls @ 999 mls/hr 03/19/25 13:45 03/19/25 13:51 Ns IV 03/19/25 14:45 999 mls/hr .Q1H1M BARON Administration Iohexol 100 ml 03/19/25 14:55 03/19/25 14:55 Iohexol 350 Mg/Ml 100 Ml Infus..Btl IV 03/19/25 14:56 70 ml ONCE ONE Administration Medical Decision Making Medical Decision Making [facility] Narrative: Differential diagnosis includes, but is not limited to subarachnoid hemorrhage, headache, contusion, vasovagal presyncope, electrolyte derangement, acute kidney injury. Patient is afebrile and hemodynamically stable on room air. Exam is benign and reassuring. I reviewed the patient's labs, EKG and diagnostic imaging as below. On re-examination, patient is well-appearing and in no acute distress. ?Patient states symptoms he states feeling well and states ?I am hungry and I want to go home?. ?There is no indication for further emergent evaluation in this otherwise well-appearing patient as above. ?Patient is provided written and verbal instructions, educational materials, recommendations for outpatient follow-up, strict return precautions and teach back is performed. ?Patient and daughter understanding and agreement with plan of care. ?Patient is discharged home in stable and improved condition. Admission/Observation Consideration of admission/observation: Escalation of care including admission/observation considered Lab Data [facility] Lab Attestation statement: I reviewed the patient's lab results. CBC and CMP are benign and reassuring 03/19/25 13:58 03/19/25 13:58 Labs: Lab Results 03/19/25 Range/Units 13:58 WBC 7.7 (4.8-10.8) X10*3/uL RBC 4.55 (4.20-5.50) X10*6/uL Hgb 12.8 (12.0-16.0) g/dl Hct 38.4 (37.0-47.0) % MCV 84.4 (80.0-98.0) fL MCH 28.1 (27.0-33.0) pg MCHC 33.3 (31.0-35.0) g/dl RDW 13.9 (11.0-16.0) % Plt Count 166 D (160-400) X10*3/uL MPV 9.7 (9.4-12.3) fL Immature Gran % (Auto) 0.4 (0.0-0.4) % Neut % (Auto) 58.0 (45-73) % Lymph % (Auto) 31.7 (20-40) % [place]ondera % (Auto) 8.5 (2-11) % Eos % (Auto) 0.9 (0-4) % Baso % (Auto) 0.5 (0-2) % Lymph # (Auto) 2.4 (1.2-4.9) X10*3/uL [place] # (Auto) 0.7 (0.1-1.2) X10*3/uL Eos # (Auto) 0.1 (0.0-0.4) X10*3/uL Baso # (Auto) 0.0 (0.0-0.2) X10*3/uL Abs Immat Gran (auto) 0.03 (0.00-0.03) X10*3/uL Absolute Neuts (auto) 4.5 (2.0-8.3) x10*3/uL Absolute Nucleated RBC 0.000 (0.0-0.012) X10*3/uL Nucleated RBC % (auto) 0.0 (0.0-0.2) /100WBC Sodium 140 (135-145) mmol/L Potassium 4.4 (3.3-5.1) mmol/L Chloride 109 H (96-108) mmol/L Carbon Dioxide 27 (22-29) mmol/L Anion Gap 8 L (12-20) BUN 12 (9-16) mg/dL Creatinine 0.83 (0.5-1.4) mg/dL Estim Creat Clear Calc 45.4 Estimated GFR > 60 Random Glucose 92 (60-115) mg/dL Calcium 8.5 D (8.4-10.2) mg/dL Total Bilirubin 0.6 (0.0-1.0) mg/dL AST 26 (5-31) U/L ALT 19 (0-31) U/L Alkaline Phosphatase 58 (39-117) U/L Total Protein 6.0 L (6.5-8.0) g/dL Albumin 3.7 (3.5-5.0) g/dL Independent Interpretation I performed an independent interpretation of an: EKG, Plain X-Ray and CT Scan Interpretation: EKG shows sinus bradycardia at 59 beats per minute, NV 154, QRS 84, QTC 427, no STEMI, no Brugada morphology, no epsilon wave, no dagger-like Q-waves, no delta wave (when compared to previous EKG March 26, 2024 there are no clinically significant changes). X-ray of the left knee demonstrates no acute fracture. CT imaging of the head demonstrates no acute intracranial hemorrhage Radiology Impression Discussion of test interpretation with radiology: I have reviewed the radiologist's reading. Radiologist Impression: XR/XR knee LT 4V IMPRESSION: No acute abnormality of the left knee. Electronically signed by: Terry Joaquin MD 03/19/2025 02:45 PM EDT RP Dictated By: Terry Joaquin MD Signed By: <Electronically signed by Terry Joaquin MD in OV> 03/19/25 1445 CTA HEAD: 1. No evidence of large vessel occlusion, high-grade stenosis, dissection, or aneurysm within the intracranial arterial circulation. 2. Patent cortical and dural venous sinuses. 3. No space-occupying hemorrhage or definite evolving ischemic infarct. Electronically signed by: Terry Joaquin MD 03/19/2025 03:41 PM EDT RP Dictated By: Terry Joaquin MD Signed By: <Electronically signed by Terry Joaquin MD in OV> 03/19/25 1541 Discharge Plan Discharge Clinical Impression: Contusion of knee, left, Headache, Fall, Pre-syncope Patient Disposition: Home, Self-Care Instructions: Contusion in Adults (ED) Additional Instructions: You were evaluated in the emergency room after a fall, headche and left knee pain. Your blood work was very reassuring. The x-ray of your left knee showed no broken or dislocated bones. Please ice your knee 20 minutes at a time with 20 minutes break in between. Repeat 3 times in a row. Repeat the entire cycle several times a day. Please continue doing this for at least 3 days. Please elevated your leg above the level of your heart as much as possible to decrease swelling. Please take 600mg ibuprofen every 6 hours with food AND water as needed for pain relief. You can also take 650mg Tylenol every 6 hours for additional pain relief. Please follow up with your primary care doctor in 1-2 weeks if your symptoms are not improving. Return to the emergency department with any new symptoms, concerns or injuries. Le evaluaron en urgencias tras maria m ca?da, dolor de katarzyna y dolor en la rodilla izquierda. Juarez an?lisis de deepa fueron muy tranquilizadores. La radiograf?a de mayo rodilla izquierda no mostr? huesos rotos ni dislocados. Por favor, aplique hielo en la rodilla ana 20 minutos seguidos, con 20 minutos de descanso entre cada marlo. Repita shilpa procedimiento 3 veces seguidas. Repita el ciclo completo varias veces al d?a. Contin?e haciendo esto ana al menos 3 d?as. Eleve la pierna por encima del nivel del coraz?n tanto ian sea posible para disminuir la hinchaz?n. [place] 600 mg de ibuprofeno cada 6 horas con comida y agua, seg?n sea necesario, para aliviar el dolor. Tambi?n puede deana 650 mg de Tylenol cada 6 horas para un alivio adicional del dolor. Si juarez s?ntomas no mejoran, consulte con mayo m?dico de cabecera en 1 o 2 semanas. Regrese a urgencias si presenta nuevos s?ntomas, inquietudes o lesiones. Prescriptions: No Action lidocaine 5 % adhesive patch,medicated 1 patch topical DAILY PRN (Reason: Back pain) Qty: 15 0RF Rx Instructions: leave on most painful area for up to 12 hrs acetaminophen 500 mg tablet 1,000 mg PO QID PRN (Reason: pain) Qty: 30 0RF cyclobenzaprine 5 mg tablet 5 mg PO TID PRN (Reason: muscle spasm) Qty: 14 0RF Rx Instructions: This medication may cause drowsiness, use with caution pantoprazole [Protonix] 40 mg tablet,delayed release (DR/EC) 40 mg PO DAILY Qty: 20 0RF sennosides [Natural Senna Laxative] 8.6 mg tablet 8.6 mg PO BID Qty: 180 3RF Print Language: Luxembourgish
[2025-03-19] MEDS: 0.9 % Sodium Chloride 1,000 ML 999 ML IV (13:51)
[2025-03-19 14:02] LABS: MANUAL DIFF FLAG NO
[2025-03-19 14:03] LABS: Basophils Percent Auto 0.5 % (0-2); Eosinophils Absolute Auto 0.1 X10*3/uL (0.0-0.4); Eosinophils Percent Auto 0.9 % (0-4); Hematocrit 38.4 % (37.0-47.0); Hemoglobin 12.8 g/dl (12.0-16.0); Imm Gran Abs Auto 0.03 X10*3/uL (0.00-0.03); Imm Gran Pct Auto 0.4 % (0.0-0.4); Lymphocytes Absolute Auto 2.4 X10*3/uL (1.2-4.9); Lymphocytes Percent Auto 31.7 % (20-40); Mean Corpuscular HGB Conc 33.3 g/dl (31.0-35.0); Mean Corpuscular Hemoglobin 28.1 pg (27.0-33.0); Mean Corpuscular Volume 84.4 fL (80.0-98.0); Mean Platelet Volume 9.7 fL (9.4-12.3); Monocytes Absolute Auto 0.7 X10*3/uL (0.1-1.2); Monocytes Percent Auto 8.5 % (2-11); Neutrophils Absolute Auto 4.5 x10*3/uL (2.0-8.3); Platelet Count 166 X10*3/uL (160-400); Red Blood Count 4.55 X10*6/uL (4.20-5.50); Red Cell Distribution Width 13.9 % (11.0-16.0); White Blood Count 7.7 X10*3/uL (4.8-10.8)
[2025-03-19 14:16] LABS: Alanine Aminotransferase 19 U/L (0-31); Albumin Level 3.7 g/dL (3.5-5.0); Alkaline Phosphatase 58 U/L (39-117); Anion Gap 8 (12-20); Aspartate Amino Transferase 26 U/L (5-31); Bilirubin Total 0.6 mg/dL (0.0-1.0); Blood Urea Nitrogen 12 mg/dL (9-16); Calcium 8.5 mg/dL (8.4-10.2); Carbon Dioxide 27 mmol/L (22-29); Chloride 109 mmol/L (96-108); Creatinine Clr Calc Pharmacy 45.4; Estimated Glomerular Filt Rate > 60; Glucose Random 92 mg/dL (60-115); Potassium 4.4 mmol/L (3.3-5.1); Sodium 140 mmol/L (135-145)
[2025-03-19] MEDS: iohexoL 350 MG/ML 100 ML INFUS..BTL IV (14:55)
--- OUTSIDE RECORDS SUMMARY | 2025-03-19 15:21 | XMS_ITS | Encounter Summary ---
Author Organization [employer] Address [address] [place] [address] 7[address] [place] [address] Care Team Providers Care Security Clerk Name Role Phone Bre Ortega MD Primary Care Provider + Kenneth Doarn PharmD Unavailable [phone] Encounter Details Date Type Department Care Team (Late st Contact Info) Description 11/05/2022 Orders Only [facility] MEDICINE [address] [place] [address] Danielle Acosta, DONAL [address] [place] [address] Social History Tobacco Use Types Packs/Day Years [...] Care Team (Late st Contact Info) Description 04/05/2025 9:00 AM EDT Office Visit [facility] OPTOMETRY [address] [place] [address] Aura Sanchez, OD [address] [place] [address] documented as of this encounter Procedures Procedure [...] Extremities, Hip Bilateral Radiograp hic Imaging 11/13/2022 8:5 7 AM EST Narrative 11/16/2022 10:30 AM EST ? [facility] ?[address] ?[place] [address] ?XRay Report ? Signed ? Patient: Jaclyn Lao A ?MR#: [id number] ?? [id number] ? : 1945 ?Acct:[id number] ? Age/Sex: 77 / F ?ADM Date: 11/13/22 ? Loc: HO.XRAY ? Attending Dr: Bre Ortega MD ? Ordering Physician: Bre Ortega MD ?? Date of Service: 11/13/22 ?? Procedure(s): XR hip LT w PEL1V ?? Accession Number(s): [id number] ? cc: Bre Ortega MD ? EXAMINATION: [...] hip exam. ? Dictated By: ?Oj Crook S ? Signed By: ?<Electronically signed by Oj S MD Ambreen in OV> ?11/16/227 ? DD/ 6 ? TD/TT: ? Investment Underwriter: MSM ? Procedure Note Brooke, Image - 12/09/2022 [facility] [address] [place] [address] XRay Report Signed Patient: Jaclyn Lao AMR#: [id number] : 8Acct:[id number] Age/Sex: 77 / FADM Date: 11/13/22 Loc: ELLEN.GABY Attending Dr: Bre Ortega MD Ordering Physician: Bre Ortega MD Date of Service: 11/13/22 Procedure(s): XR hip LT w PEL1V Accession Number(s): [id number] cc: Bre Ortega MD EXAMINATION: LEFT SHOULDER [...] in OV> 11/16/22 1027 DD/ 0857 TD/TT: Investment Underwriter: [facility] External Provider IMG XR PROCEDURES Edited Result - Final * XR Shoulder 2+ Views Left (11/13/2022 8:57 AM EST) Anatomical Region Laterality Modality Upper Extremities, Shoulder Left Radi ographic Imaging 11/13/2022 8:57 AM EST Narrative 11/16/2022 10:30 AM EST ? [facility] ?[address] ?[place] [address] ?XRay Report ? Signed ? Patient: Shilo,Jaclyn A ?MR#: [id number] ?? [id number] ? : 1945 ?Acct:[id number] ? Age/Sex: 77 / F ?ADM Date: 01/14/23 ? Loc: HO.XRAY ? Attending Dr: Bre Ortega MD ? Ordering Physician: Ana Seaman PA-C ?? Date of Service: 11/13/22 ?? Procedure(s): XR shoulder LT min 2V ?? Accession Number(s): [id number] ? cc: Ana Seaman PA-C ? EXAMINATION: [...] 1027 ? DD/ 0857 ? TD/TT: ? Investment Underwriter: MSM ? Procedure Note Brooke, Image - 11/16/2022 [place] [address] JOSEPHay Report Signed Patient: Jaclyn Lao AMR#: [id number] : 8Acct:[id number] Age/Sex: 77 / FADM Date: 11/13/22 Loc: JENNY Attending Dr: Bre Ortega MD Ordering Physician: Ana Seaman PA-C Date of Service: 11/13/22 Procedure(s): XR shoulder LT min 2V Accession Number(s): [id number] cc: Ana Seaman PA-C EXAMINATION: LEFT SHOULDER [...] in OV> 11/16/22 1027 DD/ 0857 TD/TT: Investment Underwriter: [facility] External Provider IMG XR PROCEDURES Edited Result - Final documented in this encounter Visit Diagnoses Not on filedocumented in this encounter Care Teams Security Clerk Relationship Specialty Start Date End Date Bre Ortega MD [address] [place] [address] PCP - General Family Medicine 11/17/16 Kenneth Doran, [place] [address] [place] [address] Pharmacist Internal Medicine 12/06/22 documented as of this encounter
--- OUTSIDE RECORDS SUMMARY | 2025-03-19 15:22 | XMS_ITS | Encounter Summary ---
Author Organization [employer] Address [address] [place] [address] 7[address] [place] [address] Care Team Providers Care Management Psychologist Name Role Phone Bre Ortega MD Primary Care Provider + Kenneth Doran PharmD Unavailable [phone] Reason for Referral * Consultation (Routine) - Closed Specialty Diagnoses / Procedures Referred By Contac t Referred To Contact Cardiology Diagnoses Infrarenal abdominal aortic aneurysm (AAA) without rupture (CMS/HCC) Bre Ortega MD [address] [place] [address] Phone: tel: fax: [facility] Referral ID Status Reason Start Date Expiration Date V isits Requested Visits Authorized [id number] Closed Specialty Services Required 09/20/2024 09/20/2025 1 1 Encounter Details Date Type Department Care Team (Late st Contact Info) Description 09/20/2024 Orders Only [facility] MEDICINE [address] [place], [place] [phone] Bre Ortega MD [address] [place], [place] [phone] Infrarenal abdominal aortic aneurysm (AAA) without rupture [...] Description 04/05/2025 9:00 AM EDT Office Visit [facility] OPTOMETRY [address] [place] [address] Aura Sanchez, OD [address] [place] [address] Scheduled Referrals Name Type Priority Associated Diagnoses Order Schedule Referral to Cardiology Outpatient Referral Routine Infrarenal abdominal aortic aneurysm (AAA) without rupture (CMS/HCC) Expected: 09/20/2024 (Approximate), Expires: 09/20/2025 documented as of this encounter Goals Goal Patient Goal Type Associated Problems Recent Progress Patient-Stated? Author Blood Pressure < 150/90 Blood Pressure 116/73(2024 2:24 PM EDT) Kenneth Liriano, [place] Note: 77 y.o. female (No Hx DM or CKD) documented as of this encounter Visit Diagnoses Diagnosis Infrarenal abdominal aortic aneurysm (AAA) without rupture (CMS/HCC)- Primary documented in this encounter Additional Health Concerns Assessment Noted Time PHQ-9 Depression Total Score: 0 07/30/20 24 8:54 AM EDT documented as of this encounter Care Teams Management Psychologist Relationship Specialty Start Date End Date Bre Ortega MD [address] [place] [address] PCP - General Family Medicine 11/17/16 Kenneth Doran, Nash [address] [place] [address] Pharmacist Internal Medicine 12/06/22 documented as of this encounter
--- OUTSIDE RECORDS SUMMARY | 2025-03-19 15:22 | XMS_ITS | Encounter Summary ---
Author Organization [employer] Address [address] [facility] 7[address] [place] [address] Care Team Providers Care Director Ambulatory Name Role Phone Bre Ortega MD Primary Care Provider + Kenneth Doran PharmD Unavailable [phone] Encounter Details Date Type Department Care Team (Late st Contact Info) Description 08/10/2023 Abstract [facility] MEDICINE [address] [place] [address] Bre Ortega MD [address] [place], [place] [phone] Social History Tobacco Use Types Packs/Day Years [...] Description 04/05/2025 9:00 AM EDT Office Visit [facility] OPTOMETRY [address] [place], [place] [phone] TarkaAura, OD [address] [place] [address] documented as of this encounter Goals Goal Patient Goal Type Associated Problems Recent Progress Patient-Stated? Author Blood Pressure < 150/90 Blood Pressure 116/73(2024 2:24 PM EDT) No Kenneth Doran, PharmD Note: 77 y.o. female (No Hx DM or CKD) documented as of this encounter Visit Diagnoses Not on filedocumented in this encounter Care Teams Director Ambulatory Relationship Specialty Start Date End Date Bre Ortega MD [address] [place] [address] PCP - General Family Medicine 11/17/16 Kenneth Doran, PharmD [address] [place], [place] [phone] Pharmacist Internal Medicine 12/06/22 documented as of this encounter
--- OUTSIDE RECORDS SUMMARY | 2025-03-19 15:22 | XMS_ITS | Clinical Summary ---
Author Organization [employer] Address [address] [facility] 7t [place] [address] Care Team Providers Care Media Production Support Manager Name Role Phone Radha Ortega MD Primary Care Provider + Kenneth Doran PharmD Unavailable [phone] Allergies Active Allergy Reactions Criticality Noted Date Comments Albuterol Anxiety,Palpitations High 07/20/2023 Doesn't have allergy, only intolerance Medications senna (Senokot) 8.6 MG tablet TAKE 1 TABLET BY MOUTH TWICE DAILY FOR CONSTIPATION 023 Active levalbuterol (Xopenex HFA) 45 MCG/ACT inhalerIndications:Testing Coordinator tyson obstructive pulmonary disease, 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 15 g 11 023 Active atorvastatin (Lipitor) 80 MG tabletIndications:Pure hypercholesterolemia TAKE 1 TABLET BY MOUTH AT BEDTIME 90 tablet 3 024 Active pantoprazole (Protonix) 20 MG EC tablet TAKE 1 TABLET BY MOUTH BID AC MEALS x 1 mo then 1 TAB PO DAILY AC BREAKFASTX 4M. DO NOT CRUSH, CHEW OR SPLIT. 60 tablet 2 024 Active valsartan (Diovan) 80 MG tablet TAKE 1 TABLET BY MOUTH EVERY DAY IN THE EVENING 30 tablet 5 024 Active gabapentin (Neurontin) 100 MG capsule Take 1 capsule (100 mg) by mouth at bedtime. 90 capsule 024 Active Multiple Vitamins-Minerals (Multivitamin Women 50+) tablet Take 1 tablet by mouth Once per day. 90 tablet 3 025 Active nicotine polacrilex (Commit) 2 MG lozenge Dissolve 1 lozenge (2 mg) in the mouth if needed for smoking cessation. 100 lozenge 025 Active Active Problems Problem Noted Date [...] out well, we discussed about going to [facility] or if increased anxiety. She feels safe [...] GI symptoms at this time. 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 Refer to PT. FU with me as scheduled. 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 There were also chronic lung disease emphysematous changes and aortic calcification of the thoracic and abdominal aorta plus infrarenal AAA with focal dissection. Assessment & Plan (10/12/2024 2:26 PM EST): [...] 6-8w Weight loss 03/21/2024 Assessment & Plan (01/30/2025 3:03 PM EDT): Significantly improved. Baseline malignancy workup is negative, she is due for follow-up EGD this year. 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 Advised to quit smoking, continue nicotine lozenges as needed. Continue Protonix until she sees GI next month Call back as needed with severe abdominal pain, dizziness or melena. Assessment & Plan (10/12/2024 2:23 PM EST): [...] osteoporosis 05/12/2018 Smoker 05/12/2018 Assessment & Plan (01/30/2025 3:04 PM EDT): I congratulated her for cutting down significantly, she will continue to use nicotine lozenges Assessment & Plan (10/12/2024 2:20 PM EST): See above. Assessment & Plan (07/30/2024 12:11 PM EDT): Advised to cutdown smoking,, she declines rx nicotine patch or gum at this time. I gave her info re acupuncture rx to quit smoking Low dose CT scan lungs for lung ca screen arranged through pulmonary office [facility] Assessment & Plan (03/21/2024 3:22 PM EDT): [...] Encounters Date Type Department Care Team Description 03/19/2025 Orders Only [facility] External Provider, [facility] 01/30/2025 2:45 PM EDT Office Visit [facility] [address] [place] [phone] Radha Ortega MD Weight loss (Primary Dx); Gastroesophageal reflux disease with esophagitis without hemorrhage; Smoker; Juxtarenal abdominal aortic aneurysm (AAA) without rupture ([facility]) 01/30/2025 Travel 01/29/[address] [address] Radha Ortega MD Chart prep 01/21/2025 Patient Outreach [address] [address] Radha Ortega MD Pre-visit Planning ([facility] screening completed on 11/21/2024) 12/31/2024 Orders Only [address] [address] Radha Ortega MD from Last 3 Months Immunizations Immunization Administration Dates Next Due Pfizer Covid-19 Vaccine [...] Sign Reading Time Taken Comments Blood Pressure 116/73 01/30/2025 2:24 PM EDT Pulse 76 01/30/2025 2:24 PM EDT Temperature 35.2 ??C (95.3 ??F) 01/30/2025 2:24 PM ED T Respiratory Rate 12 01/30/2025 2:24 PM EDT Oxygen Saturation 100% 01/30/2025 2:24 PM EDT Inhaled Oxygen Concentration - - Weight 58.1 kg (128 lb) 01/30/2025 2:24 PM EDT Height 149.9 cm (4' 11 ) 01/30/2025 2:24 PM EDT Body Mass Index 25.85 01/30/2025 2:24 PM EDT Plan of Treatment Upcoming Encounters Date Type Department Care Team (Late st Contact Info) Description 04/05/2025 9:00 AM EDT Office Visit [facility] [address] [place] [address] Aura Sanchez, OD [address] [place] [address] Health Maintenance Due Date Last Done Comments Alcohol/Substance Use Screening 1957 Hepatitis C Screening 1965 RSV Patients and Patients Aged 60 years or older (1 - 1-dose 75+ series) 2022 Influenza Vaccine (#1) 2024 COVID-19 Vaccine ( season) 2025 07/24/2024, 01/19/2022, 01/19/2022 Mammogram 02/13/2025 02/14/2024, 04/10/2022, 02/08/2023, Additional history exists Depression Screening 07/30/2025 07/30/2024, 07/30/20 24 SDOH Screening 11/21/2025 11/21/2024 Tobacco Screening 01/30/2026 01/30/2025 Lipid Panel 12/31/2029 12/31/2024, 07/0 12/2023, 12/13/2022, Additional history exists DTaP/Tdap/Td Vaccines (3 - Td or Tdap) 07/17/2034 07/17/2024, 04/16/2014, 05/10/2013 Pneumococcal Vaccine: 50+ Years Completed 05/29/2015, 04/16/2014 Zoster Vaccines Completed 06/22/2022, 03/31, 04/16/2014 HIB Vaccines Aged Out No longer eligi ble based on patient's age to complete this topic HPV Vaccines Aged Out No longer eligi ble based on patient's age to complete this topic Hepatitis A Vaccines Aged Out No long er eligible based on patient's age to complete this topic Hepatitis B Vaccines Aged Out No long er eligible based on patient's age to complete this topic IPV Vaccines Aged Out No longer eligi ble based on patient's age to complete this topic Meningococcal B Vaccine Aged Out No l onger eligible based on patient's age to complete [...] Pressure 116/73(2024 2:24 PM EDT) Kenneth Liriano, PharmD Note: 77 y.o. female (No Hx DM or CKD) Procedures Procedure Name Priority Date/Time Associated Diagnosis Comments XR KNEE 4+ VIEWS LEFT Routine 03/19/2025 1:40 PM EDT FERRITIN Routine 12/31/2024 10:15 AM EST LIPID PANEL WITH REFLEX TO DIRECT LDL Routine 12/31/2024 10:15 AM EST Memory loss, short term VITAMIN B12/FOLATE, SERUM PANEL Routine 12/31/2024 10:15 AM EST Memory loss, short term RADHA SCREEN, IFA, W/REFL TITER AND PATTERN Routine 12/31/2024 10:15 AM EST Hair loss SYPHILIS SCREEN Routine 12/31/2024 10:15 AM EST Hair loss HEPATIC FUNCTION PANEL Routine 10:15 AM EST Weight loss VITAMIN D,25-OH,TOTAL,IA Routine 12/31/2024 10:15 AM EST Hair loss TSH W/REFLEX TO FT4 Routine 12/31/2024 1 0:15 AM EST Weight loss BI MAMMOGRAM SCREENING TOMOSYNTHESIS BILATERAL Routine 02/14/2024 8:30 AM EDT from Last 3 Months or Most Recently Relevant to Health Maintenance Results * XR Knee 4+ Views Left (03/19/2025 1:40 PM EDT) Anatomical Region Laterality Modality Lower Extremities, Knee Left Radiogra phic Imaging 03/19/2025 1:40 PM EDT Narrative 03/19/2025 2:48 PM EDT ? [facility] ?[address] ?[place] [address] ?XRay Report ? Signed ? Patient: Jaclyn Lao ?MR#: [id number] ?? [id number] ? : 1945 ?Acct:[id number] ? Age/Sex: 79 / F ?ADM Date: 03/19/25 ? Loc: HO.ED ? Attending Dr: ? Ordering Physician: Juan Parry MD ?? Date of Service: 03/19/25 ?? Procedure(s): XR knee LT 4V ?? Accession Number(s): [id number] ? cc: Radha Ortega MD; Juan Parry MD ? EXAMINATION: ?? XR KNEE, LEFT ? CLINICAL INFORMATION: ?? left knee pain ? COMPARISON: ?? None available. ? TECHNIQUE: ?? Four views of the left knee. ? FINDINGS: ?? No fracture or joint effusion. Alignment is anatomic. Joint spaces are ?? maintained. No abnormal soft tissue calcification. ? There are vascular calcifications in the soft tissues. ? XR/XR knee LT 4V ?? IMPRESSION: ?? No acute abnormality of the left knee. ? Electronically signed by: ??Terry Joaquin MD ??03/19/2025 02:45 PM EDT RP ? Dictated By: ?Terry Joaquin MD ? Signed By: ?<Electronically signed by Terry Joaquin MD in OV> ?03/19/25 1445 ? DD/ 1340 ? TD/TT: 03/19/25 1439 ? Strategic Manager: ? Procedure Note Donamberlyter, Jody - 03/19/[address] [address] XRay Report Signed Patient: Jaclyn Lao AMR#: [id number] : 8Acct:[id number] Age/Sex: 79 / FADM Date: 03/19/25 Loc: HO.ED Attending Dr: Ordering Physician: Juan Parry MD Date of Service: 03/19/25 Procedure(s): XR knee LT 4V Accession Number(s): [id number] cc: Radha Ortega MD; Juan Parry MD EXAMINATION: XR KNEE, LEFT CLINICAL INFORMATION: left knee pain COMPARISON: None available. TECHNIQUE: Four views of the left knee. FINDINGS: No fracture or joint effusion. Alignment is anatomic. Joint spaces are maintained. No abnormal soft tissue calcification. There are vascular calcifications in the soft tissues. XR/XR knee LT 4V IMPRESSION: No acute abnormality of the left knee. Electronically signed by: Terry Joaquin MD 03/19/2025 02:45 PM EDT Dictated By: Terry Joaquin MD Signed By: <Electronically signed by Terry Joaquin MD in OV> 03/19/25 1445 DD/ 1340 TD/TT: 03/19/25 1439 Strategic Manager: [facility] External Provider IMG XR PROCEDURES Final Result * Syphilis Screen (12/31/2024 10:15 AM EST) Syphilis Screen Nonreactive Nonreactive [facility] Blood 12/31/2024 10:1 5 AM EST 12/31/2024 11:36 AM EST Radha Ortega MD LAB BLOOD ORDERABLES Fin al Result Performing Organization Address [facility]/State/ZIP Co de Phone Number [facility] [address] [place] [address] [phone] * Vitamin D, 25-Hydroxy, Total, Immunoassay (12/31/2024 10:15 AM EST) Vitamin D 25-OH Total 45.9 >30 ng/mL [facility] Comment:Health Based Referen ce Values*< 20 ng/mL Iubmuvzaq43-63 ng/mL Insufficient> 30 ng/mL Sufficient*Km EDMONDSON. N Engl J Med. 2007;357:266-280Care must be taken in interpreting Vitamin D results fromdifferent laboratories and methodologies. Published datademonstrated that results from patients undergoinghemodialysis may show a negative bias when tested withvarious automated 25-OH vitamin D assays when compared toLC-MS/MS.When testing samples from patients whose predominant form ofVitamin D is Vitamin D2, such as patients receiving VitaminD2 supplementation, results that are subtherapeutic shouldbe confirmed with another method such as LC-MS/MS. Blood 12/31/2024 10:1 5 AM EST 12/31/2024 11:36 AM EST Radha Ortega MD LAB BLOOD ORDERABLES Fin al Result Performing Organization Address City/[facility]/ZIP Co de Phone Number [facility] [address] [place] [address] [phone] * (ABNORMAL) Vitamin B12/Folate, Serum Panel (12/31/2024 10:15 AM EST) Vitamin B12 1,923(H) 200 - 900 pg/mL [facility] Comment:NORMAL 200-900 PG/ML INDETERMINATE 160-199 PG/ML DEFICIENT < 160 PG/ML Folate 7.6 > or = 4.0 ng/mL [facility] Comment:Reference Values:> o r = 4.0 ng/mL< 4.0 ng/mL suggests folate deficiency Methotrexate, aminopterin and folinic acid(leucovorin) are chemotherapeutic agents whose molecularstructures are similar to folate; therefore, the Architectfolate assay cannot be used for patients using these drugs. Blood Venous blood specimen / Unknown 12/31/2024 10:15 AM EST 12/31/2024 11:36 AM EST Radha Ortega MD LAB BLOOD ORDERABLES Fin al Result Performing Organization Address [facility] Co de Phone Number [facility] [address] [place] [phone] * TSH with Reflex to Free T4 (12/31/2024 10:15 AM EST) TSH reflex Free T4 1.07 0.32 - 4.0 uIU/mL [facility] Blood 12/31/2024 10:1 5 AM EST 12/31/2024 11:36 AM EST Radha Oretga MD LAB BLOOD ORDERABLES Fin al Result Performing Organization Address [facility] Co de Phone Number [facility] [address] [place] [phone] * Lipid Panel with Reflex to Direct LDL (12/31/2024 10:15 AM EST) Triglycerides 101 <150 mg/dL [facility] Comment:Desirable Triglyceri de: less than 150 mg/dLBorderline High Triglyceride 150-199 mg/dLHigh Triglyceride: 200-499 mg/dLVery High Triglyceride: greater than or equal to 5OO mg/dL Cholesterol 121 <200 mg/dL [facility] Comment:Desirable Cholestero l: less than 200 mg/dLBorderline High Cholesterol: 200-239 mg/dLHigh Cholesterol: greater than 239 mg/dL LDL Cholesterol Calculated 59 <100 mg/dL [facility] Comment:Desirable LDL: less than 100 mg/dLNear Optimal/Above Optimal LDL: 110- 129 mg/dLBorderline High LDL: 130-159 mg/dLHigh LDL: 160-189 mg/dLVery High LDL: greater than or equal to 190 mg/dL HDL Cholesterol 42 >40 mg/dL [facility] Comment:Desirable HDL: great er than 40 mg/dL Note: This HDL assay may give artificially low results in patients with liver disease. Blood 12/31/2024 10:1 5 AM EST 12/31/2024 11:36 AM EST us Radha Ortega MD LAB BLOOD ORDERABLES Fin al Result [facility] [address] [place] [phone] * RADHA Screen,IFA, with Reflex to Titer and Pattern (12/31/2024 10:15 AM EST) Anti Nuclear Antibody Screen NEGATIVE NEGATIVE [facility] Comment:RADHA IFA is a first l ine screen for detecting thepresence of up to approximately 150 autoantibodies invarious autoimmune diseases. A negative RADHA IFA resultsuggests an RADHA-associated autoimmune disease is notpresent at this time, but is not definitive. If thereis high clinical suspicion for Sjogren's syndrome,testing for anti-SS-A/Ro antibody should be considered.Anti-Estella-1 antibody should be considered for clinicallysuspected inflammatory myopathies.AC-0: NegativeInternational Consensus on RADHA Patterns(https://doi.org/10.1515/wvfg-5859-9712)For additional information, please refer tohttp://education.[employer]ly.[employer]/faq/AFJ998(This link is being provided for informational/educational purposes only.)THIS TEST WAS PERFORMED AT:[employer] [place] [phone] SANCHEZ MD RADHA Titer TNP [facility] RADHA Pattern [facility] RADHA TITER 2 (REF LAB) [facility] RADHA Pattern 2 [facility] RADHA TITER 3 TNP [facility] RADHA PATTERN 3 [facility] Blood Venous blood specimen / Unknown 12/31/2024 10:15 AM EST 12/31/2024 11:36 AM EST Radha Ortega MD LAB BLOOD ORDERABLES Fin al Result Performing Organization Address City/[facility]/ZIP Co de Phone Number [facility] [address] [place] [phone] [phone] * Ferritin (12/31/2024 10:15 AM EST) Pathologist [facility] Ferritin 132 10 - 250 ng/mL [facility] 12/31/2024 10:1 5 AM EST 12/31/2024 11:36 AM EST Radha Ortega MD LAB BLOOD ORDERABLES Fin al Result Performing Organization Address City/[facility]/ZIP Co de Phone Number [facility] [address] [place] [address] [phone] * (ABNORMAL) Hepatic Function Panel (12/31/2024 10:15 AM EST) Bilirubin, Total 0.7 0.0 - 1.0 mg/dL [facility] Bilirubin, Direct 0.2 0.0 - 0.5 mg/dL [facility] Aspartate Amino Transferase 38(H) 5 - 31 U/L [facility] Comment:Mild Hemolysis.Inter pret result with caution Alanine Aminotransferase 26 0 - 31 U/L [facility] Total Protein 7.3 6.5 - 8.0 g/dL [facility] Comment:Mild Hemolysis.Inter pret result with caution Albumin Level 3.9 3.5 - 5.0 g/dL [facility] Alkaline Phosphatase 64 39 - 117 U/L [facility] Blood Venous blood specimen / Unknown 12/31/2024 10:15 AM EST 12/31/2024 11:36 AM EST us Radha Ortega MD LAB BLOOD ORDERABLES Fin al Result [facility] [address] [place] [phone] * BI Mammogram Screening Tomosynthesis Bilateral (02/14/2024 8:30 AM EDT) Anatomical Region Laterality Modality Breast Bilateral Mammography 02/14/2024 8:30 AM EDT Narrative 02/14/2024 11:31 AM EDT ? [facility] [place] ? [address] ?[place] [address] ? Mammography Report ? Signed ? Patient: Jaclyn Lao ?MR#: [id number] ?? [id number] ? : 1945 ?Acct:[id number] ? Age/Sex: 78 / F ?ADM Date: 02/14/24 ? Loc: HO.MAMMO ? Attending Dr: Radha Ortega MD ? Ordering Physician: Radha Ortega MD ?Results: 0In ?? complete: Needs Additional Imaging Evaluation ? Date of Service: 02/14/24 ?Follow Up: Additional Imagi ?? ng ? Procedure(s): MM tomosynthesis screening BI ?? Accession Number(s): [id number] ? cc: Radha Ortega MD ? EXAMINATION: ?? MM SCREENING DIGITAL BREAST TOMOSYNTHESIS, BILATERAL ? CLINICAL INFORMATION: ? Screening. Asymptomatic. ? COMPARISON: ?? Mammography: This study is compared with prior exams dating back to ?? 2019. ? TECHNIQUE: ?? Digital breast tomosynthesis is [...] 1127 ? DD/ 0830 ? TD/TT: ? Strategic Manager: ? Procedure Note Jody Cox - 02/14/[address] [facility] [address] [place], [place] [address] Mammography Report Signed Patient: Jaclyn Lao AMR#: [id number] : 8Acct:[id number] Age/Sex: 78 / FADM Date: 02/14/24 Loc: HO.MAMMO Attending Dr: Radha Ortega MD Ordering Physician: Radha Ortega MDResults: 0In complete: Needs Additional Imaging Evaluation Date of Service: 02/14/24Follow Up: Additional Imagi ng Procedure(s): MM tomosynthesis screening BI Accession Number(s): [id number] cc: Radha Ortega MD EXAMINATION: MM SCREENING DIGITAL BREAST [...] in OV> 02/14/24 1127 DD/ 0830 TD/TT: Strategic Manager: Radha Ortega MD IMG BI PROCEDURES Final Result from Last 3 Months or Most Recently Relevant to Health Maintenance Insurance [facility] [employer] (HMO D-SNP) [place] [id number] Care Teams Media Production Support Manager Relationship Specialty Start Date End Date Radha Ortega MD [address] [place] [address] PCP - General Family Medicine 11/17/16 Kenneth Doran, CheD [address] [place] [address] Pharmacist Internal Medicine 12/06/22
--- OUTSIDE RECORDS SUMMARY | 2025-03-19 15:22 | XMS_ITS | Encounter Summary ---
Author Organization [employer] Address [address] [place] [address] [address]t [place] [address] Care Team Providers Care Continuing Education Director Name Role Phone Bre Ortega MD Primary Care Provider + Kenneth Doran PharmD Unavailable [phone] Reason for Visit * Reason Comments Med Refill Encounter Details Date Type Department Care Team (Late st Contact Info) Description 06/18/2023 Refill [facility] [address] [place] [address] Leonor Heredia MD [address] [place] [address] Seborrheic dermatitis Social History Tobacco Use Types [...] Description 04/05/2025 9:00 AM EDT Office Visit [facility] [address] [place] [address] Aura Sanchez, OD [address] [place] [address] documented as of this encounter Goals Goal Patient Goal Type Associated Problems Recent Progress Patient-Stated? Author Blood Pressure < 150/90 Blood Pressure 116/73(2024 2:24 PM EDT) No Kenneth Doran, Nash Note: 77 y.o. female (No Hx DM or CKD) documented as of this encounter Visit Diagnoses Diagnosis Seborrheic dermatitis Unspecified seborrheic dermatitis documented in this encounter Care Teams Continuing Education Director Relationship Specialty Start Date End Date Bre Ortega MD [address] [place] [address] PCP - General Family Medicine 11/17/16 Kenneth Doran, PharmD [address] [place] [phone] Pharmacist Internal Medicine 12/06/22 documented as of this encounter
--- OUTSIDE RECORDS SUMMARY | 2025-03-19 15:22 | XMS_ITS | Encounter Summary ---
Author Organization [employer] Address [address] [place] [address] [address]t [place] [address] Care Team Providers Care Grinder Hand Name Role Phone Bre Ortega MD Primary Care Provider + Kenneth Doran PharmD Unavailable [phone] Encounter Details Date Type Department Care Team (Late st Contact Info) Description 06/23/2023 Orders Only [facility] [address] [place], [place] [phone] Bre Ortega MD [address] [place] [address] Social History Tobacco Use Types Packs/Day Years [...] 9:00 AM EDT Office Visit [facility] [address] [place], [place] [phone] Aura Sanchez, OD [address] [place], [place] [phone] documented as of this encounter Goals Goal Patient Goal Type Associated Problems Recent Progress Patient-Stated? Author Blood Pressure < 150/90 Blood Pressure 116/73(2024 2:24 PM EDT) No Kenneth Doran, Nash Note: 77 y.o. female (No Hx DM or CKD) documented as of this encounter Visit Diagnoses Not on filedocumented in this encounter Care Teams Grinder Hand Relationship Specialty Start Date End Date Bre Ortega MD [address] [place] [address] PCP - General Family Medicine 11/17/16 Kenneth Doran, PharmD [address] [place] [address] Pharmacist Internal Medicine 12/06/22 documented as of this encounter
--- OUTSIDE RECORDS SUMMARY | 2025-03-19 15:22 | XMS_ITS | Encounter Summary ---
Author Organization [employer] Address [address] [place] [address] [address] [place] [address] Care Team Providers Care Torch Heater Name Role Phone Bre Ortega MD Primary Care Provider + Kenneth Doran PharmD Unavailable [phone] Encounter Details Date Type Department Care Team (Late st Contact Info) Description 10/01/2022 Abstract [facility] [address] [place] [address] Nany Devine PharmD [address] [place] [address] Social History Tobacco Use Types Packs/Day Years [...] Description 04/05/2025 9:00 AM EDT Office Visit [facility] [address] [place] [address] TarkaAura, OD [address] [place] [address] documented as of this encounter Visit Diagnoses Not on filedocumented in this encounter Care Teams Torch Heater Relationship Specialty Start Date End Date Bre Ortega MD [address] [place] [address] PCP - General Family Medicine 11/17/16 Kenneth Doran, [place] [address] [place] [phone] Pharmacist Internal Medicine 12/06/22 documented as of this encounter
--- OUTSIDE RECORDS SUMMARY | 2025-03-19 15:22 | XMS_ITS | Encounter Summary ---
Author Organization [employer] Address [address] [place] [address] 7[address] [place] [address] Care Team Providers Care Medical Record Specialist Name Role Phone Bre Ortega MD Primary Care Provider + Kenneth Doran PharmD Unavailable [phone] Encounter Details Date Type Department Care Team (Late st Contact Info) Description 11/24/2022 Orders Only [facility] MED & PEDS [address] [place], [place] [id number] Nargis Mancini LPN Social History Tobacco Use [...] Description 04/05/2025 9:00 AM EDT Office Visit [facility] OPTOMETRY [address] [place] [address] TarAura ortega, OD [address] [place] [address] documented as of this encounter Visit Diagnoses Not on filedocumented in this encounter Care Teams Medical Record Specialist Relationship Specialty Start Date End Date Bre Ortega MD [address] [place] [address] PCP - General Family Medicine 11/17/16 Kenneth Doran, PharmD [address] [place] [address] Pharmacist Internal Medicine 12/06/22 documented as of this encounter
--- OUTSIDE RECORDS SUMMARY | 2025-03-19 15:22 | XMS_ITS | Encounter Summary ---
Author Organization [employer] Address [address] [facility] 7t [place] [address] Care Team Providers Care Validation Leader Name Role Phone Bre Ortega MD Primary Care Provider + Kenneth Doran PharmD Unavailable [phone] Encounter Details Date Type Department Care Team (Late st Contact Info) Description 03/19/2025 Orders Only [facility] External Provider, [facility] Social History Tobacco Use Types Packs/Day Years [...] Visit [facility] OPTOMETRY [address] [place], [place] [id number] Aura Sanchez, OD [address] [place] [address] documented as of this encounter Goals Goal Patient Goal Type Associated Problems Recent Progress Patient-Stated? Author Blood Pressure < 150/90 Blood Pressure 116/73(2024 2:24 PM EDT) Kenneth Liriano, PharmD Note: 77 y.o. female (No Hx DM or CKD) documented as of this encounter Procedures Procedure Name Priority Date/Time Associated Diagnosis Comments XR KNEE 4+ VIEWS LEFT Routine 03/19/2025 1:40 PM EDT documented in this encounter Results * XR Knee 4+ Views Left (03/19/2025 1:40 PM EDT) Anatomical Region Laterality Modality Lower Extremities, Knee Left Radiogra [facility] Imaging 03/19/2025 1:40 PM EDT Narrative 03/19/2025 2:48 PM EDT ? [facility] ?[address] ?[place] [address] ?XRay Report ? Signed ? Patient: Shilo,Jaclyn A ?MR#: [id number] ?? [id number] ? : 1945 ?Acct:[id number] ? Age/Sex: 79 / F ?ADM Date: 03/19/25 ? Loc: HO.ED ? Attending Dr: ? Ordering Physician: Juan Parry MD ?? Date of Service: 03/19/25 ?? Procedure(s): XR knee LT 4V ?? Accession Number(s): [id number] ? cc: Bre Ortega MD; Juan Parry MD ? EXAMINATION: [...] DD/ 1340 ? TD/TT: 03/19/25 1439 ? Hand Bobbin Cleaner: ? Procedure Note Brooke, Image - 03/19/[address] [address] XRay Report Signed Patient: Jaclyn Lao AMR#: [id number] : 8Acct:[id number] Age/Sex: 79 / FADM Date: 03/19/25 Loc: HO.ED Attending Dr: Ordering Physician: Juan Parry MD Date of Service: 03/19/25 Procedure(s): XR knee LT 4V Accession Number(s): [id number] cc: Bre Ortega MD; Juan Parry MD EXAMINATION: XR [...] Terry Joaquin MD 03/19/2025 02:45 PM EDT RP Dictated By: Terry Joaquin MD Signed By: <Electronically signed by Terry Joaquin MD in OV> 03/19/25 1445 DD/ 1340 TD/TT: 03/19/25 1439 Hand Bobbin Cleaner: [facility] External Provider IMG XR PROCEDURES Final Result documented in this encounter Visit Diagnoses Not on filedocumented in this encounter Additional Health Concerns Assessment Noted Time PHQ-9 Depression Total Score: 0 07/30/20 24 8:54 AM EDT documented as of this encounter Care Teams Validation Leader Relationship Specialty Start Date End Date Bre Ortega MD [address] [place] [address] PCP - General Family Medicine 11/17/16 Kenneth Doran, Nash [address] [place] [address] Pharmacist Internal Medicine 12/06/22 documented as of this encounter
[2025-03-19 16:06] VITALS: BP 101/49; PULSE 88; RESP 16; TEMP 36.6; O2SAT 97
== END 2025-03-19 16:14 | disposition home or self-care (01) ==
PROVIDERS: Emergency Provider Emergency Medicine; PCP Internal Medicine
DX: R55 Syncope and collapse (principal); R00.1 Bradycardia, unspecified; R51.9 Headache, unspecified; M25.562 Pain in left knee; Z79.899 Other long term (current) drug therapy
CPT/HCPCS: 36415; 70496; 70498; 73564; 80053; 85025; 93005; 99283; 99284; Q9967

== ENCOUNTER → 2025-03-19 13:40 | Outpatient (BNV) | payer OTHER, SELFPAY | PROVIDERS: Emergency Provider Emergency Medicine; PCP Internal Medicine; Visit Provider Radiology Diagnostic Radiology | DX: I74.2 Embolism and thrombosis of arteries of the upper extremities (principal); M71.462 Calcium deposit in bursa, left knee | CPT/HCPCS: 70496; 70498; 73564 ==

== ENCOUNTER 2025-04-04 11:17 | Outpatient (AMB) | payer OTHER, SELFPAY ==
[2025-04-04 11:25] VITALS: BMI 25.0
--- NOTE | 2025-04-04 11:25 | A.OFFVIS_ITS ---
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 This all began as an incidental finding for for a CAT scan for weight loss. This was done on 09/05/2024. In addition she did have a CT angiogram of the head and neck on 03/19/2025. She now presents to us for vascular evaluation. Of note she does report she smokes about 3 cigarettes a day, and is a nondiabetic. [facility] Medical History Hypertension Hyperlipidemia Asthma Nicotine dependence, cigarettes, uncomplicated Osteoporosis Panda esophagus Esophagitis Gastritis Diverticulosis Chronic idiopathic constipation Tubular adenoma Surgical History History of colonoscopy History of esophagogastroduodenoscopy (EGD) Family History Mother Diabetes Father No problems noted. Social History (Updated 04/04/25 @ 11:29 by DOTTY Meyer) Alcohol intake: never Comment: mediated with eye drops and eye ointment for eye pain, much improved now Patient Tobacco Use Status: Current everyday Tobacco user Tobacco use type: Cigarette Cigarettes Per Day: 3 Years Smoked: (onset 17yo, 1ppd x 63yrs, now 1/4ppd - 50+PYH) Review of Systems Const Reports as per HPI ENT Reports no additional complaints Card Denies chest pain, Denies chest pain at rest and Denies chest pain with activity Resp Denies chest congestion and Denies cough GI Reports no additional complaints Musc Details: pain over varicosities, aching of lower extremities, swelling, cramping, heaviness and tiredness, itching Denies abnormal gait Skin/Breast Reports pruritus and Denies wounds Neuro Reports no additional complaints and Denies abnormal gait Psych Denies no additional complaints Physical Exam Vital Signs: BMI result Body Mass Index 25.0 Const General: cooperative, healthy appearing and comfortable Orientation/consciousness: oriented to person, oriented to place and oriented to time Neck Carotids: no bruits Chest Chest palpation & inspection: normal inspection of the chest and normal palpation of entire chest wall Resp Effort & Inspection: normal respiratory effort and able to speak in complete sentences Cardio Rate: regular rate Heart sounds: S1 normal heart sound present and S2 normal heart sound present Peripheral pulses: Peripheral pulses 2+ throughout GI Inspection: Yes normal to inspection Skin Other: +2 edema, large rope-like varicosities greater than 4 mm CEAP Classification C4 - skin color changes Ep - Etiology Primary As - superficial veins P - reflux General skin exam: dry skin Neuro General: oriented to person, oriented to place and oriented to time Extrem Right lower extremity: full ROM, normal capillary refill and edema Left lower extremity: full ROM, normal capillary refill and edema Psych Mental Status: mental status grossly normal Results Reviewed Results Reviewed: CT angiogram dated 09/05/2024 of the abdomen demonstrates a juxtarenal aortic aneurysm measuring 3.[address] angiogram of head and neck dated 03/19/2025 demonstrates bilateral carotids less than 50% stenosis left subclavian occlusion. Assessment & Plan Assessment & Plan (1) Abdominal aortic aneurysm: Code(s): I71.40 - Abdominal aortic aneurysm, without rupture, unspecified Category: Medical Qualifiers: Presence of rupture: without rupture Abdominal aorta location: juxtarenal aorta Qualified Code(s): I71.42 - Juxtarenal abdominal aortic aneurysm, without rupture Plan: In short patient has radiologic evidence of a AAA on CT scan of 3.5 cm. We have discussed the pathophysiology of aortic aneurysms and the risk of ruptures. We have discussed rupture risk based on size. In addition we have discussed co nservative measures and risk factor modification for prevention of increase in size of the aneurysm. the patient is scheduled for surveillance follow-up in approximately 6 months. Thank you for allowing us to participate in the care of this patient (2) Left subclavian artery occlusion: Code(s): I70.8 - Atherosclerosis of other arteries Category: Medical Plan: Patient has left subclavian occlusion as noted on CAT scan. At the current time she is asymptomatic from this. Would recommend no IVs blood pressures or blood draws on this left upper extremity. Should this become symptomatic in the future would be happy to revisit this. Thank you for allowing us to assist in her care. Orders: Orders US abdominal aortic aneurysm 6 Months I71.42 - Juxtarenal abdominal aortic aneurysm, without rupture Coding Level of Care Code New Pt Level 4 (84377) Complex EM visit Add On G2211 Diagnoses Juxtarenal abdominal aortic aneurysm (AAA) without rupture I71.42 Presence of rupture: without rupture Abdominal aorta location: juxtarenal aorta Left subclavian artery occlusion I70.8
--- OUTSIDE RECORDS SUMMARY | 2025-04-04 13:28 | XMS_ITS | Encounter Summary ---
Author Organization [employer] Address [address] [place] [address] 7t [place] [address] Care Team Providers Care Sliver Lapper Name Role Phone Bre Ortega MD Primary Care Provider + Kennteh Doran PharmD Unavailable [phone] Encounter Details Date Type Department Care Team (Late st Contact Info) Description 11/05/2022 Orders Only [facility] MEDICINE [address] [place] [address] Danielle Acosta, DONAL [address] [place] [address] Social History Tobacco Use Types Packs/Day Years [...] Description 04/05/2025 9:00 AM EDT Office Visit [facility] OPTOMETRY [address] [place] [address] Aura Sanchez, OD [address] [place] [address] documented as of this encounter Procedures Procedure [...] EST Narrative 11/16/2022 10:30 AM EST ? [facility] ?[address] ?[place] [address] ?XRay Report ? Signed ? Patient: Jaclyn Lao A ?MR#: [id number] ?? [id number] ? : 1945 ?Acct:[id number] ? Age/Sex: 77 / F ?ADM Date: 11/13/22 ? Loc: HO.XRAY ? Attending Dr: Bre Ortega MD ? Ordering Physician: Bre Ortega MD ?? Date of Service: 11/13/22 ?? Procedure(s): XR hip LT w PEL1V ?? Accession Number(s): [id number] ? cc: Bre Ortega MD ? EXAMINATION: [...] ?11/16/227 ? DD/ 6 ? TD/TT: ? Pump And Still Operator: MSM ? Procedure Note Brooke, Image - 12/09/2022 [facility] [address] [place] [address] XRay Report Signed Patient: Jaclyn Lao AMR#: [id number] : 8Acct:[id number] Age/Sex: 77 / FADM Date: 11/13/22 Loc: ELLEN.GABY Attending Dr: Bre Ortega MD Ordering Physician: Bre Ortega MD Date of Service: 11/13/22 Procedure(s): XR hip LT w PEL1V Accession Number(s): [id number] cc: Bre Ortega MD EXAMINATION: LEFT SHOULDER [...] in OV> 11/16/22 1027 DD/ 0857 TD/TT: Pump And Still Operator: [facility] External Provider IMG XR PROCEDURES Edited Result - Final * XR Shoulder 2+ Views Left (11/13/2022 8:57 AM EST) Anatomical Region Laterality Modality Upper Extremities, Shoulder Left Radi ographic Imaging 11/13/2022 8:57 AM EST Narrative 11/16/2022 10:30 AM EST ? [facility] ?[address] ?[place] [address] ?XRay Report ? Signed ? Patient: Shilo,Jaclyn A ?MR#: [id number] ?? 4960 ? : 1945 ?Acct:[id number] ? Age/Sex: 77 / F ?ADM Date: 01/14/23 ? Loc: HO.XRAY ? Attending Dr: Bre Ortega MD ? Ordering Physician: Ana Seaman PA-C ?? Date of Service: 11/13/22 ?? Procedure(s): XR shoulder LT min 2V ?? Accession Number(s): [id number] ? cc: Ana Seaman PA-C ? EXAMINATION: [...] 1027 ? DD/ 0857 ? TD/TT: ? Pump And Still Operator: MSM ? Procedure Note Brooke, Image - 11/16/2022 [place] [address] JOSEPHay Report Signed Patient: Jaclyn Lao AMR#: [id number] : 8Acct:[id number] Age/Sex: 77 / FADM Date: 11/13/22 Loc: JENNY Attending Dr: Bre Ortega MD Ordering Physician: Ana Seaman PA-C Date of Service: 11/13/22 Procedure(s): XR shoulder LT min 2V Accession Number(s): [id number] cc: Ana Seaman PA-C EXAMINATION: LEFT SHOULDER [...] in OV> 11/16/22 1027 DD/ 0857 TD/TT: Pump And Still Operator: [facility] External Provider IMG XR PROCEDURES Edited Result - Final documented in this encounter Visit Diagnoses Not on filedocumented in this encounter Care Teams Sliver Lapper Relationship Specialty Start Date End Date Bre Ortega MD [address] [place] [address] PCP - General Family Medicine 11/17/16 Kenneth Doran, Nash [address] [place] [address] Pharmacist Internal Medicine 12/06/22 documented as of this encounter
== END 2025-04-04 11:40 | disposition home or self-care (01) ==
LOC: HO.HVS 11:17
PROVIDERS: PCP Internal Medicine; Visit Provider Surgery Vascular Surgery
DX: I71.42 Juxtarenal abdominal aortic aneurysm, without rupture (principal); I70.8 Atherosclerosis of other arteries
CPT/HCPCS: 99204; G2211

== ENCOUNTER → 2025-04-04 11:17 | Outpatient (BNVA) | payer OTHER, SELFPAY | PROVIDERS: PCP Internal Medicine; Visit Provider Surgery Vascular Surgery | DX: I71.42 Juxtarenal abdominal aortic aneurysm, without rupture (principal); I70.8 Atherosclerosis of other arteries | CPT/HCPCS: 99202 ==

== ENCOUNTER 2025-04-15 14:21 | Outpatient (REF) | payer OTHER, SELFPAY ==
--- OUTSIDE RECORDS SUMMARY | 2025-04-15 16:05 | XMS_ITS | Encounter Summary ---
Author Organization [employer] Address [address] [place] [address] 7t [place] [address] Care Team Providers Care Skate Maker Name Role Phone Bre Ortega MD Primary Care Provider + Kenneth Doran PharmD Unavailable [phone] Encounter Details Date Type Department Care Team (Late st Contact Info) Description 11/05/2022 Orders Only [facility] MEDICINE [address] [place] [address] Danielle Acosta, DONAL [address] [place] [address] Social History Tobacco Use Types Packs/Day Years [...] Care Team (Late st Contact Info) Description 04/26/2025 9:15 AM EDT Office Visit [facility] OPTOMETRY [address] [place] [address] Aura Sanchez, OD [address] [place] [address] documented as of this encounter Procedures Procedure [...] EST Narrative 11/16/2022 10:30 AM EST ? [facility] ?[address] ?[place] [address] ?XRay Report ? Signed ? Patient: Jaclyn Lao A ?MR#: [id number] ?? [id number] ? : 1945 ?Acct:[id number] ? Age/Sex: 77 / F ?ADM Date: 11/13/22 ? Loc: HO.XRAY ? Attending Dr: Bre Ortega MD ? Ordering Physician: Bre Ortega MD ?? Date of Service: 11/13/22 ?? Procedure(s): XR hip LT w PEL1V ?? Accession Number(s): [id number] ? cc: Bre Ortega MD ? EXAMINATION: [...] exam. ? Dictated By: ?Oj Crook S MD ? Signed By: ?<Electronically signed by Oj S MD Ambreen in OV> ?11/16/227 ? DD/ 6 ? TD/TT: ? Poke In: MSM ? Procedure Note Brooke, Image - 12/09/2022 [facility] [address] [facility] [place] [address] XRay Report Signed Patient: Jaclyn Lao AMR#: [id number] : 8Acct:[id number] Age/Sex: 77 / FADM Date: 11/13/22 Loc: ELLEN.GABY Attending Dr: Bre Ortega MD Ordering Physician: Bre Ortega MD Date of Service: 11/13/22 Procedure(s): XR hip LT w PEL1V Accession Number(s): [id number] cc: Bre Ortega MD EXAMINATION: LEFT SHOULDER [...] in OV> 11/16/22 1027 DD/ 0857 TD/TT: Poke In: ESVIN [facility] External Provider IMG XR PROCEDURES Edited Result - Final * XR Shoulder 2+ Views Left (11/13/2022 8:57 AM EST) Anatomical Region Laterality Modality Upper Extremities, Shoulder Left Radi ographic Imaging 11/13/2022 8:57 AM EST Narrative 11/16/2022 10:30 AM EST ? [facility] ?[address] ?[place] [address] ?XRay Report ? Signed ? Patient: Shilo,Jaclyn A ?MR#: [id number] ?? [id number] ? : 1945 ?Acct:[id number] ? Age/Sex: 77 / F ?ADM Date: 01/14/23 ? Loc: HO.XRAY ? Attending Dr: Bre Ortega MD ? Ordering Physician: Ana Seaman PA-C ?? Date of Service: 11/13/22 ?? Procedure(s): XR shoulder LT min 2V ?? Accession Number(s): [id number] ? cc: Ana Seaman PA-C ? EXAMINATION: [...] 1027 ? DD/ 0857 ? TD/TT: ? Poke In: MSM ? Procedure Note Brooke, Image - 11/16/2022 [place] [address] JOSEPHay Report Signed Patient: Jaclyn Lao AMR#: [id number] : 8Acct:[id number] Age/Sex: 77 / FADM Date: 11/13/22 Loc: JENNY Attending Dr: Bre Ortega MD Ordering Physician: Ana Seaman PA-C Date of Service: 11/13/22 Procedure(s): XR shoulder LT min 2V Accession Number(s): [id number] cc: Ana Seaman PA-C EXAMINATION: LEFT SHOULDER [...] in OV> 11/16/22 1027 DD/ 0857 TD/TT: Poke In: ESVIN [facility] External Provider IMG XR PROCEDURES Edited Result - Final documented in this encounter Visit Diagnoses Not on filedocumented in this encounter Care Teams Skate Maker Relationship Specialty Start Date End Date Bre Ortega MD [address] [place] [address] PCP - General Family Medicine 11/17/16 Kenneth Doran, CheD [address] [place] [address] Pharmacist Internal Medicine 12/06/22 documented as of this encounter
== END 2025-04-15 14:22 | disposition home or self-care (01) ==
LOC: HO.MAMMO 14:21
PROVIDERS: PCP Internal Medicine; Visit Provider Internal Medicine
DX: Z12.31 Encounter for screening mammogram for malignant neoplasm of breast (principal)
CPT/HCPCS: 77063; 77067

== ENCOUNTER → 2025-04-15 14:45 | Outpatient (BNV) | payer OTHER, SELFPAY | PROVIDERS: PCP Internal Medicine; Visit Provider Internal Medicine | DX: Z12.31 Encounter for screening mammogram for malignant neoplasm of breast (principal) | CPT/HCPCS: 77063; 77067 ==

== ENCOUNTER 2025-10-04 09:46 | Outpatient (REF) | payer OTHER, SELFPAY ==
--- NOTE | ~2025-10-04 | US_ITS ---
CLINICAL HISTORY: I71.42 - Juxtarenal abdominal aortic aneurysm, without rupture US of abdominal aorta Comparison: CT/LA/SR - CT ABDOMEN PELVIS WITH IV CONTRAST - 09/05/24 16:09 EST Findings: Echogenic likely calcific atherosclerotic changes abdominal aorta and iliac arteries. The mid abdominal aorta is not convincingly seen due to bowel gas shadowing. Aorta diameter proximal 2.5 x 3.0 cm. Aorta diameter distal 3.3 x 4.0 cm. Right common iliac artery maximum diameter 0.7 x 1.2 cm. Left common iliac artery maximum diameter 0.8 x 0.8 cm. Impression: 1. Progressive distal abdominal aorta aneurysm 4 cm, previously 3.5 cm. 2. Mid abdominal aorta is obscured by bowel gas. This document has been electronically signed by: Laura Chong MD on 10/04/2025 16:37:00
== END 2025-10-04 09:47 | disposition home or self-care (01) ==
LOC: HO.US 09:46
PROVIDERS: PCP Internal Medicine; Visit Provider Surgery Vascular Surgery
DX: I71.42 Juxtarenal abdominal aortic aneurysm, without rupture (principal)
CPT/HCPCS: 76706

== ENCOUNTER → 2025-10-04 09:48 | Outpatient (BNV) | payer OTHER, SELFPAY | PROVIDERS: PCP Internal Medicine; Visit Provider Radiology Diagnostic Radiology | DX: I71.42 Juxtarenal abdominal aortic aneurysm, without rupture (principal) | CPT/HCPCS: 76706 ==